=== PATIENT | female | born 1950 | race Caucasian/White ===

== ENCOUNTER 2018-12-29 13:07 | Emergency (ER) | payer OTHER, SELFPAY ==
[2018-12-29 13:09] VITALS: BP 148/78; PULSE 71; RESP 14; TEMP 36; O2SAT 98; BMI 34.2
--- NOTE | 2018-12-29 13:29 | US_ITS ---
STUDY: ABDOMINAL ULTRASOUND - RIGHT UPPER QUADRANT REASON FOR VISIT: Female, 68 years old. Right upper quadrant pain. TECHNIQUE: Ultrasound evaluation of the right upper quadrant was performed with real-time and static sinclair-scale imaging. TECHNICAL QUALITY: Adequate. COMPARISON: None. FINDINGS: Liver: The liver measures 14.5 cm. There is increased echogenicity consistent with fatty infiltration. The bile ducts are within normal limits. There is hepatic color flow. The direction of portal flow is hepatopetal. There is no demonstrated mass lesion. Gallbladder: Normal distended gallbladder. The gallbladder wall measures 3.0 mm. There is a negative sonographic Cartagena's sign. There is no pericholecystic fluid. There are multiple echogenic structures within the gallbladder, consistent with multiple gallstones. There is also evidence of a 4.8 mm gallbladder polyp. There is also evidence of adenomyomatosis of the gallbladder wall. Common Bile Duct (C.B.D.): The common bile duct measures 7 mm. Pancreas: Normal size of the head, body and tail of the pancreas. There is normal echogenicity of the pancreas. There is no demonstrated pancreatic mass or cyst. Right Kidney: Normal size of the right kidney. The right kidney measures 11.1 cm x 4.8 cm x 4.8 cm. Normal renal cortex. The right cortex measures 1.5 cm. There is no demonstrated renal mass or cyst. There is no right hydronephrosis. US/Gallbladder IMPRESSION: Fatty infiltration of the liver. Gallstones and small gallbladder polyp. Electronically Signed: Ihsan Fuentes, at 15:15 EDT , Service support ,
--- NOTE | 2018-12-29 13:30 | ED.VISSUMM ---
- ER Visit Summary Date of Service: 12/29/18 Chief Complaint: Intermittent right upper quadrant abdominal pain History of Present Illness: The patient is a 68 F treated recently diagnosed gallstones. Has had intermittent pain this week since Tuesday. Was seen and treated at [place] [facility] earlier this week. Had a CAT scan showing gallstones but no acute obstruction. She had unremarkable labs at that time. She is following up with Dr. Rahman that he had a concern of a possible biliary obstruction from a stone and he was an ultrasound performed. Currently she is pain-free. Physical Examination: Well-appearing older female. No acute distress. Vital signs are stable and afebrile. HEENT exam unremarkable. Neck nontender no lymphadenopathy. Lungs clear to auscultation bilaterally. Heart regular rhythm no murmur. Abdomen is soft and nontender. Normal bowel sounds no peritoneal signs. Extremities moves all 4. Calves are nontender no edema. Neurologically she is awake and alert with no focal motor deficits. Test Results: Ultrasound right upper quadrant shows multiple gallstones and a gallbladder polyp. Negative Cartagena sign. No pericholecystic fluid or wall edema. Common bile duct 7 mm. Emergency Department Course and Treatment: Repeat exams patient is doing well. She is had no abdominal pain while in the ER. Her abdomen is completely nontender. I discussed with her that I talked to her general surgeon Dr. Ervin Salomon and she will follow-up with him this coming week. She and her daughter are comfortable with that plan. They know to return if she is feeling a lot worse as intractable pain. Treatment Plan: Diet. Call and follow-up with Dr. Ervin Salomon this week. Disposition: dc Impression: Intermittent right upper quadrant abdominal pain secondary to biliary colic from gallstones This note was generated with [employer] software. It may contain incorrect words, spelling, and punctuation that were not noted in review of the chart prior to signing
--- NOTE | 2018-12-29 15:23 | ED.DEP ---
ED Disposition - Plan for ED Patient: Disposition: Home or Assisted Living Instructions: BILIARY COLIC with Gallstone (Confirmed) Referrals: Ervin Salomon MD [STAFF PHYSICIAN] - As soon as possible Additional Instructions: [place] diet. No trauma clinic, CABG or greasy foods. Call and follow-up with Dr. Ervin Salomon to his office this week. Tylenol and/or Motrin for pain. Return to the ER if intractable pain, intractable vomiting or fever.
== END 2018-12-29 15:32 | disposition home or self-care (01) ==
PROVIDERS: Emergency Provider Emergency Medicine
DX: K80.80 Other cholelithiasis without obstruction (principal); K76.0 Fatty (change of) liver, not elsewhere classified
CPT/HCPCS: 76705; 99282

== ENCOUNTER 2019-01-02 12:48 | Inpatient (IN) | payer SELFPAY ==
[2019-01-01 08:29] VITALS: BMI 34.2
--- NOTE | 2019-01-01 09:59 | PCM.HP.BLA ---
Problem List (1) Cholelithiasis Status: Acute Qualifiers: Cholelithiasis location: gallbladder Cholecystitis presence: without cholecystitis Biliary obstruction: without biliary obstruction Qualified Code(s): K80.20 - Calculus of gallbladder without cholecystitis without obstruction History and Physical Date of Admission: 01/01/19 Intake Vital Signs 01/01/19 Body Mass Index (BMI) 34.2 01/01/19 Height 5 ft 1 in 01/01/19 Weight: 175 lb 01/01/19 Body Mass Index (BMI) 33.0 01/01/19 Blood Pressure 132/83 H 01/01/19 Blood Pressure Location Lt brachial 01/01/19 Respiratory Rate 18 Intake Visit Reasons: Hospital f/u Gallstone 12/29 Game Warden Required: No Is patient in pain?: No Allergies No Known Allergies Allergy (Verified 01/01/19 08:29) Medications multivitamin tablet 1 tab PO DAILY 01/01/19 [History Confirmed 01/01/19] PFSH Medical History Gallstones (Acute) Normal colonoscopy (Acute) Surgical History S/P tonsillectomy (Acute) Family History Sister Cancer uterine Social History (Updated 01/01/19 @ 09:58 by Ervin Saolmon MD) Smoking Status: Never smoker alcohol intake: never HPI HPI HPI: ELISA ALBARADO, is a 68 F who presents to the office today for HPI HPI HPI: ELIAS ALBARADO, is a 68 F who presents to the office today for right upper quadrant pain. Patient has had 2 episodes of severe right upper quadrant pain. She had ultrasound done recently which showed multiple gallstones. She had no wall thickening and her white count was normal. She says that eating does make the pain worse. She is currently not in any pain right now and these episodes have induced some nausea but no vomiting. ROS General General: No weight change or fatigue Cardio Cardiovascular: No murmur, pacemaker, heart disease, atrial fibrillation, high blood pressure, heart attack, heart stent, palpitations, shortness of breat with exertion or chest pain Psych Psychiatric: No depression or anxiety Resp Respiratory: No shortness of breath, No sleep apnea, No cough, No COPD, No asthma, No emphysema, No wheezing Gastro Gastrointestinal: Yes abdominal pain, Yes nausea or vomiting, No diarrhea, No constipation, No blood in stool, No acid reflux, No hemorrhoids, No ulcers, No gallbladder problem, No black,tarry stools Rad Hematologic: No blood thinners Exam Const General: cooperative Orientation: alert, oriented x3 Resp Effort & Inspection: normal respiratory effort Auscultation: clear to auscultation bilaterally Cardio Rate: regular rate Rhythm: regular rhythm Heart Sounds: no murmurs GI Inspection: non-distended Palpation: soft, nontender Assessment & Plan Problems 1. Calculus of gallbladder without cholecystitis without obstruction K80.20 Plan Patient has cholelithiasis and biliary colic. He has had 2 episodes of severe pain. She would like her gallbladder out before another episode recurs. I discussed laparoscopic cholecystectomy with her. I discussed the procedure in detail with the patient. I discussed the risks, benefits, and alternatives of the procedure. I discussed the risks including but not limited to bleeding, infection, injury to surrounding organs such as the liver, bile duct, bowels. I did discuss the possibility of having to convert to an open procedure as well as the possibility that if any injuries occurred this may necessitate further surgery at a tertiary care center. Ervin Salomon MD Pager: [facility] [address] [place] [address], [address] [place] [phone] Office:
[2019-01-02] VITALS (11 sets, daily range): BP systolic 114–140; BP diastolic 68–83; PULSE 57–84; RESP 14–20; TEMP 36.1–37; O2SAT 92–98; BMI 32.5; BMI 32.8
--- NOTE | 2019-01-02 09:57 | EKG12_ITS ---
Test Reason : PREOP Blood Pressure : / mmHG Vent. Rate : 067 BPM Atrial Rate : 067 BPM P-R Int : 142 ms QRS Dur : 066 ms QT Int : 386 ms P-R-T Axes : 026 071 031 degrees QTc Int : 407 ms Normal sinus rhythm Normal ECG No previous ECGs available Confirmed by WESTON CHAVEZ ([id number]), newspaper editor ABDIRIZAK DENNY ([id number]) on 01/11/2019 2:42:57 PM Referred By: Ervin Salomon Confirmed By:WESTON CHAVEZ
[2019-01-02 10:19] LABS: Hematocrit 44.6 % (37-47); Hemoglobin 14.9 g/dL (12.0-15.0); Mean Corp Hgb Conc 33.4 g/dL (32-36); Mean Corpuscular Hgb 30.9 pg (27.0-32.0); Mean Corpuscular Volume 92.5 fL (81-99); Mean Platelet Vol. 8.8 fl (6.2-12.0); Platelet Count 186 K/mm3 (150-450); RBC Distribution Width CV 12.7 % (11.6-14.6); RBC Distribution Width SD 43.2 fl (35.1-43.9); Red Blood Count 4.82 M/mm3 (4.2-5.4); White Blood Count 4.6 K/mm3 (4.4-11.0)
[2019-01-02 10:28] LABS: Partial Thromboplast Time 27.1 Seconds (24.1-36.2); Prothrombin Time (Protime)PT. 12.6 SECONDS (11.7-14.9)
[2019-01-02 10:34] LABS: AST(SGOT) 25 U/L (15-37); Alanine Aminotransfer ALT/SGPT 34 U/L (13-56); Albumin, Serum 3.9 g/dL (3.2-5.0); Alkaline Phosphatase 57 U/L (45-117); Bilirubin, Direct 0.13 mg/dL (0.00-0.30); Globulin 3.2 g/dL (2.2-4.2); Protein, Total 7.1 g/dL (6.4-8.2)
--- NOTE | 2019-01-02 11:30 | GALL_PTH ---
PATIENT: ELIAS ALBARADO LOC: PCU U#:[id number] AGE/SX: 68/F ROOM: [facility] RE01/03/[address]: Dr. Ervin Salomon MD : 1950 BED: 1 DIS: 01/10/2019 SPEC #: [id number] RECD: 01/02/19 15:04 STATUS: ANJELICA BROWN #: [id number] FARZANEH: 01/02/19 11:[address]: Ervin Salomon DEPT: SURGICAL PATHOLOGY RECD BY: Hector Corona ENTERED: 01/03/19 10:47 SP TYPE: JACKIE PIERSON DR: Dr. Gabriel Proctor MD Tissues: Gallbladder, NOS Procedures: Surgery Specimen Level IV HEADER OPERATION: Laparoscopic, cholecystectomy with IOC PRE-OP DIAGNOSIS: Cholelithiasis TISSUE SUBMITTED: Gallbladder MICROSCOPIC DIAGNOSIS Gallbladder, cholecystectomy: Chronic cholecystitis and cholelithiasis. Focal mild epithelial dysplastic changes. SJ:nan 01/05/19 COMMENT Case has been reviewed in consultation with Dr. Cervantes who concurs with the above diagnosis. IDC:AM MICROSCOPIC DESCRIPTION Slides are reviewed. GROSS DESCRIPTION Received is one container labeled with the patient's name and designated gallbladder. The specimen consists of a gallbladder measuring 6.5 cm in length and 3 cm in diameter. The external surface is pink-benitez, smooth and glistening for the most part. Focally it is granular, hemorrhagic and contains cautery artifact. The gallbladder contains grayish-light yellow mucoid bile and multiple, multifaceted yellow-orange stones measuring in aggregate 5 x 3 x 1 cm and 0.5 to 0.8 in greatest dimension. The mucosa is bile-stained and without any mass lesions. The gallbladder wall measures up to 0.5 cm in thickness. A focal area shows increased amount of subserosal fat. Brusher Warp sections from the gallbladder and the cystic duct are submitted in one cassette. / YUNIER:nan 01/03/19 More sections are submitted in cassettes 2-4. / YUNIER:nan 01/04/19 TC:3 CPT: 86415
--- NOTE | 2019-01-02 11:30 | RAD_ITS ---
STUDY: INTRAOPERATIVE CHOLANGIOGRAM. REASON FOR EXAM: Female, 68 years old. Laparoscopic cholecystectomy. FLUOROSCOPY TIME (if supplied): (0:41) minutes/seconds TECHNIQUE: An intraoperative glandular was performed by the surgeon. Imaging was obtained. COMPARISON: None. FINDINGS: The visualized intrahepatic biliary ducts are unremarkable. Minimal dilatation of the common bile duct. No intraluminal filling defect is seen. Contrast is seen entering the duodenum. RAD/Cholangiogram/ O R,Initial IMPRESSION: Mildly dilated common bile duct. No intraluminal filling defect is seen. Electronically Signed: Ihsan Fuentes, at 13:46 EDT , Service support ,
[2019-01-02] MEDS: Bupiv/Epi 0.25% 30 ML Vial (12:00)
--- NOTE | 2019-01-02 12:44 | PCM.OPRPT ---
Problem List (1) Cholelithiasis Status: Acute Qualifiers: Cholelithiasis location: gallbladder Cholecystitis presence: without cholecystitis Biliary obstruction: without biliary obstruction Qualified Code(s): K80.20 - Calculus of gallbladder without cholecystitis without obstruction Report of Operation Date of Procedure: 01/02/19 Pre-Operative Diagnosis: Cholelithiasis and biliary colic Post-Operative Diagnosis: 1. Cholelithiasis. 2. Choledocholithiasis Surgery/Procedure Performed:: Laparoscopic cholecystectomy with cholangiogram Description of Surgical Findings:: Patient had 2 stones in the distal common bile duct on intraoperative cholangiogram. She also a dilated common bile duct. Specimen's removed: Gallbladder and contents Description of Procedure: After obtaining informed consent patient was brought back to the operating room. General anesthesia was induced. The abdomen was prepped and draped in usual sterile fashion. The patient had an umbilical hernia. A curvilinear incision was made in the superior umbilical skin and deepened to the umbilical hernia. The fascia was elevated and incised. Next the peritoneum was elevated and incised in the same fashion. Finger sweep was performed and the Glynn trocar was placed into the abdomen. The balloon was inflated. The abdomen was inflated to 15 mmHg. Next a camera was introduced into the abdomen and the abdomen was inspected. Next under direct visualization three 5-mm ports were placed one subxiphoid and 2 subcostal. Next the gallbladder was elevated and retracted toward the right shoulder. The peritoneum was stripped from the gallbladder. The infundibulum was located and retracted laterally. Next the triangle of Calot was dissected and the cystic duct and cystic artery were identified. Cholangiograms were performed. A small riya was made in the right upper quadrant and a Ranfac catheter was placed into the abdomen. A clip was placed in the proximal cystic duct and a small riya was made in the cystic duct. The Ranfac catheter was placed into the cystic duct and a clip was placed over it. Contrast was instilled and there appeared to be 2 distal common bile duct stones. The common bile duct was also dilated. The clip was removed from the distal cystic duct and the Ranfac catheter was removed. Three hemolock clips were placed across the cystic duct. The cystic duct was then divided leaving 2 clips on the stump. The cystic artery was clipped and divided in the same fashion. The hook cautery was then used to take the gallbladder off of the gallbladder bed. Hemostasis was obtained. Gallbladder fossa was irrigated and no active bleeding or bile leakage was noted. Next the camera switched to a 5 mm camera and introduced in the subxiphoid port. An Endopouch bag was placed through the umbilical port and the gallbladder was placed into it. The gallbladder was then removed through the umbilical incision. The camera was then reinserted through the umbilical port. The gallbladder fossa was inspected once more and noted to be hemostatic with no leaking bile. The abdomen was suctioned dry. The 5 mm ports were removed under direct visualization. The umbilical port was then removed and the air was removed from the abdomen. The umbilical hernia was then repaired with 2 [id number] 0 Vicryl sutures. The umbilical port site was irrigated local anesthetic was administered to all the incisions. All the incisions were closed with interrupted subcuticular 4-0 Monocryl sutures followed by Steri-Strips and dressings. The patient was awoken and taken to PACU in stable condition. - Admit VTE Documentation VTE Mechan Device Prophylaxis: SCD's
[2019-01-02] MEDS: 0.9% Normal Saline 1,000 ML 75 ML IV ×2 (13:59→22:09)
[2019-01-02] MEDS: oxyCODONE 5 MG Tablet PO (15:35)
[2019-01-02] MEDS: Acetaminophen 325 MG Tablet 650 MG PO (18:31)
[2019-01-03] VITALS (12 sets, daily range): BP systolic 109–162; BP diastolic 57–86; PULSE 60–98; RESP 16–24; TEMP 36–37.3; O2SAT 81–99; BMI 33.7
[2019-01-03 06:21] LABS: Absolute Lymphocyte Count 1.23 X10^3/uL (0.83-4.51); Absolute Neutrophil Count 3.6 X10^3/uL (2.0-7.7); Basophil# 0.01 X10^3/uL; Basophil% 0.2 % (0-1); Eosinophil# 0.05 X10^3/uL; Eosinophils% 0.9 % (0-5); Lymphocyte # 1.23 X10^3/ul (4.0); Lymphocyte % 22.6 % (19-41); Mean Corp Hgb Conc 33.3 g/dL (32-36); Mean Platelet Vol. 9.1 fl (6.2-12.0); Monocyte# 0.53 X10^3/uL; Monocyte% 9.7 % (0-10); NRBC Flagged by Analyzer 0 % (0-5); Neutrophil # 3.62 X10^3/uL (2.7-7.7); Neutrophil % 66.4 % (47-70); Platelet Count 159 K/mm3 (150-450); Red Blood Count 3.87 M/mm3 (4.2-5.4); White Blood Count 5.5 K/mm3 (4.4-11.0)
[2019-01-03 06:42] LABS: ALB/GLOB Ratio 1.1 RATIO (0.9-2.4); AST(SGOT) 54 U/L (15-37); Alanine Aminotransfer ALT/SGPT 55 U/L (13-56); Albumin, Serum 2.8 g/dL (3.2-5.0); Alkaline Phosphatase 45 U/L (45-117); Anion Gap 4 (5-15); BUN 7 mg/dL (7-18); BUN/Creat Ratio 8.6 RATIO (10-20); Calcium,Total 7.8 mg/dL (8.5-10.1); Chloride 110 mmol/L (98-107); Creatinine, Serum 0.81 mg/dL (0.55-1.02); EST Glomerular Filtration Rate 75 mL/min (>60); Est Glom Filt Rate - Afr Amer 90 mL/min (>60); Estimated Creatinine Clearance 50.86 ml/min; Globulin 2.6 g/dL (2.2-4.2); Glucose 84 mg/dL (74-106); Potassium 3.8 mmol/L (3.5-5.1); Protein, Total 5.4 g/dL (6.4-8.2); Sodium Level 142 mmol/L (136-145)
--- NOTE | 2019-01-03 08:23 | NURSING ---
Report called to XUAN Busby in [place]. Patient's daughter was also called and made aware that her mother was being taken down for her procedure at this time.
--- NOTE | 2019-01-03 09:09 | PN.SURG_ITS ---
Subjective: Patient is doing well this morning. She reports that her pain is improving. She did have some nausea but that has resolved. - Physical Exam General: Alert, Oriented x3 Neck: No JVD Lungs: Normal air movement Cardiovascular: Regular rate, Regular Rhythm Abdomen: Soft, Non Tender, Non-Distended Vital Signs Temp Pulse Resp BP Pulse Ox 98.2 F 66 17 116/58 L 93 01/03/19 08:11 01/03/19 08:11 01/03/19 08:11 01/03/19 08:11 01/03/19 08:11 Oxygen Flow Rate (L/min) 2 Oxygen Delivery Method Room Air Weight: 178 lb 5.663 oz Body Mass Index (BMI) 33.7 Intake and Output for Last 24 Hours 01/01/19 01/02/19 01/03/19 23:59 23:59 23:59 Intake Total 1807 / 2463 1091 / 1091 Balance 1807 / 2463 1091 / 1091 Laboratory Tests Past 24 Hrs 01/02/19 01/02/19 01/02/19 10:12 10:12 10:12 WBC 4.6 RBC 4.82 Hgb 14.9 Hct 44.6 MCV 92.5 MCH 30.9 MCHC 33.4 RDW Std Deviation 43.2 RDW Coeff of Yessi 12.7 Plt Count 186 MPV 8.8 Immature Gran % (Auto) Neut % (Auto) Lymph % (Auto) [place] % (Auto) Eos % (Auto) Baso % (Auto) Absolute Neuts (auto) Absolute Lymphs (auto) Nucleated RBC % PT 12.6 INR 1.0 APTT 27.1 Sodium Potassium Chloride Carbon Dioxide Anion Gap BUN Creatinine Estim Creat Clear Calc Est GFR (MDRD) Af Amer Est GFR (MDRD) Non-Af BUN/Creatinine Ratio Glucose Calcium Total Bilirubin 0.60 Direct Bilirubin 0.13 AST 25 ALT 34 Alkaline Phosphatase 57 Total Protein 7.1 Albumin 3.9 Globulin 3.2 Albumin/Globulin Ratio 01/03/19 01/03/19 05:40 05:40 WBC 5.5 RBC 3.87 L Hgb 12.0 Hct 36.0 L MCV 93.0 MCH 31.0 MCHC 33.3 RDW Std Deviation 44.0 H RDW Coeff of Yessi 13.0 Plt Count 159 MPV 9.1 Immature Gran % (Auto) 0.200 Neut % (Auto) 66.4 Lymph % (Auto) 22.6 Poins[place] % (Auto) 9.7 Eos % (Auto) 0.9 Baso % (Auto) 0.2 Absolute Neuts (auto) 3.6 Absolute Lymphs (auto) 1.23 Nucleated RBC % 0 PT INR APTT Sodium 142 Potassium 3.8 Chloride 110 H Carbon Dioxide 28.0 Anion Gap 4 L BUN 7 Creatinine 0.81 Estim Creat Clear Calc 50.86 Est GFR (MDRD) Af Amer 90 Est GFR (MDRD) Non-Af 75 BUN/Creatinine Ratio 8.6 L Glucose 84 Calcium 7.8 L Total Bilirubin 0.40 Direct Bilirubin AST 54 H ALT 55 Alkaline Phosphatase 45 Total Protein 5.4 L Albumin 2.8 L Globulin 2.6 Albumin/Globulin Ratio 1.1 Medical Necessity - Tobacco Use Smoking Status: Never smoker Tobacco Use: Non-smoker Assessment/Plan All Active Problems (Last Reviewed 01/01/19 @ 08:27 by Estefany Mitchell) Cholelithiasis (Acute) 68-year-old female status post lap scopic cholecystectomy with choledocholithiasis 1. Patient had 2 stones in the distal common bile duct as well as dilated common bile duct on cholangiogram yesterday during cholecystectomy. I recommended ERCP today. I discussed the procedure with the patient this morning. I discussed the procedure in detail as well as the risks including but not limited to bleeding, infection, perforation of bile duct or bowel, pancreatitis. Patient understands and is willing to proceed. I also described the possibility of needing a stent. Ervin Salomon MD Pager: [facility] [address] [place] [address], [address] [place] [address] Office:
--- NOTE | 2019-01-03 09:45 | RAD_ITS ---
STUDY: ERCP. REASON FOR EXAM: Female, 68 years old. Recent cholecystectomy. FLUOROSCOPY TIME (if supplied): (5:07) minutes/seconds TECHNIQUE: An ERCP was performed by the surgeon. Imaging of the common bile duct was performed. COMPARISON: None. FINDINGS: Mild dilatation of the common bile duct. A filling defect is seen in the distal portion of the common bile duct. A retained calculus should be ruled out. RAD/ERCP Biliary Only IMPRESSION: A filling defect is seen in the distal portion of the common bile duct. Retained calculus should be ruled out. Electronically Signed: Ihsan Fuentes, at 12:26 EDT , Service support ,
--- NOTE | 2019-01-03 11:06 | OP.ENDO_ITS ---
01/03/2019 Gabriel Proctor Re : ERCP procedure for Ruthie Ayon Dear Esthela This procedure was performed on Thursday, January 03, 2019. My impressions and recommendations are as follows: Impressions : - A filling defect consistent with a stone was seen on the cholangiogram. - Choledocholithiasis was found. - The biliary tree was swept. Recommendations : - Advance diet as tolerated. My findings are described in the full procedure note, which is enclosed. If I can be of further assistance, please feel free to contact me at Doctor phone number(s): , Work: . Sincerely, Ervin Salomon MD 01/03/2019 11:06:39 AM This report has been signed electronically.
[2019-01-03] MEDS: 0.9% Normal Saline 1,000 ML 75 ML IV (14:49)
[2019-01-03] MEDS: oxyCODONE 5 MG Tablet PO (14:49)
[2019-01-03] MEDS: Morphine 2 MG/ML Syringe IV ×2 (17:15→20:08)
[2019-01-03] MEDS: 0.9% NaCl Peripheral Flush Adult/Peds IV (17:15)
[2019-01-04] VITALS (10 sets, daily range): BP systolic 137–176; BP diastolic 72–104; PULSE 89–99; RESP 16–20; TEMP 36.8–37.4; O2SAT 78–95
[2019-01-04] MEDS: Morphine 2 MG/ML Syringe IV ×6 (02:03→23:57)
[2019-01-04] MEDS: 0.9% Normal Saline 1,000 ML 75 ML IV (02:04)
--- NOTE | 2019-01-04 07:09 | RAD_ITS ---
STUDY: X-RAY CHEST REASON FOR EXAM: Female, 68 years old. Hypoxia. TECHNIQUE: PA and lateral views of the chest. COMPARISON: None. FINDINGS: Increased markings are seen at the lung bases worse on the left side in keeping with bibasilar atelectasis and/or infiltrates. There is blunting of the costophrenic angles posteriorly. Normal size heart. Normal mediastinum and bon. Normal visualized pulmonary arteries. There is atherosclerotic tortuosity of the aortic arch and descending thoracic aorta. There are diffuse degenerative changes of the visualized thoracic spine. Normal visualized ribs, clavicles, and shoulders. Gaseous distention of the colon. RAD/Chest PA and Lateral IMPRESSION: Findings suggestive of bibasilar atelectasis/infiltrates. Follow-up is recommended. Electronically Signed: Ihsan Fuentes, at 11:15 EDT , Service support ,
--- NOTE | 2019-01-04 07:10 | RAD_ITS ---
STUDY: X-RAY - ABDOMEN/PELVIS REASON FOR EXAM: Female, 68 years old. Abdominal distention. Recent ERCP. TECHNIQUE: AP supine and upright views of the abdomen and pelvis. COMPARISON: None. FINDINGS: Increased markings at both lung bases left greater than right suggestive of bibasilar infiltrates and/or atelectasis with small bilateral effusions. Gaseous distention of the colon down to the rectum. Small amount of oral contrast is seen within the distended cecum. The cecum measures 12.3 cm in transverse dimension. There is no demonstrated free abdominal air. The visualized liver, spleen and kidneys are grossly normal in size and morphology. Normal soft tissue structures. There are diffuse degenerative changes of the visualized lumbar spine. RAD/Abd Inc Decub and/or Erect IMPRESSION: Gaseous distention of the colon down to the rectum. The cecum measures 12.3 cm in transverse dimension. Electronically Signed: Ihsan Fuentes, at 14:33 EDT , Service support ,
[2019-01-04 07:28] LABS: Absolute Neutrophil Count 10.6 X10^3/uL (2.0-7.7); Basophil# 0.01 X10^3/uL; Basophil% 0.1 % (0-1); Eosinophil# 0.16 X10^3/uL; Eosinophils% 1.4 % (0-5); Hematocrit 44.4 % (37-47); Hemoglobin 15.3 g/dL (12.0-15.0); Lymphocyte % 4.2 % (19-41); Mean Corp Hgb Conc 34.5 g/dL (32-36); Mean Corpuscular Hgb 31.4 pg (27.0-32.0); Monocyte# 0.53 X10^3/uL; Monocyte% 4.5 % (0-10); NRBC Flagged by Analyzer 0 % (0-5); Neutrophil # 10.56 X10^3/uL (2.7-7.7); Neutrophil % 89.5 % (47-70); POSITIVE DIFFERENTIAL YES; POSITIVE MORPHOLOGY YES; Platelet Count 133 K/mm3 (150-450); RBC Distribution Width CV 12.8 % (11.6-14.6); RBC Distribution Width SD 42.5 fl (35.1-43.9); Red Blood Count 4.88 M/mm3 (4.2-5.4); White Blood Count 11.8 K/mm3 (4.4-11.0)
[2019-01-04 07:29] LABS: Differential Indicated SCAN CRITERIA MET
[2019-01-04 07:44] LABS: Lipase 3445 U/L (73-393)
[2019-01-04 07:52] LABS: AST(SGOT) 389 U/L (15-37); Alanine Aminotransfer ALT/SGPT 288 U/L (13-56); Albumin, Serum 3.2 g/dL (3.2-5.0); Alkaline Phosphatase 135 U/L (45-117); Anion Gap 8 (5-15); BUN 6 mg/dL (7-18); BUN/Creat Ratio 7.4 RATIO (10-20); Calcium,Total 7.2 mg/dL (8.5-10.1); Chloride 101 mmol/L (98-107); Creatinine, Serum 0.82 mg/dL (0.55-1.02); EST Glomerular Filtration Rate 74 mL/min (>60); Est Glom Filt Rate - Afr Amer 90 mL/min (>60); Estimated Creatinine Clearance 50.24 ml/min; Globulin 3.2 g/dL (2.2-4.2); Glucose 143 mg/dL (74-106); Potassium 3.4 mmol/L (3.5-5.1); Protein, Total 6.4 g/dL (6.4-8.2); Sodium Level 133 mmol/L (136-145)
[2019-01-04 07:58] LABS: Reactive Lymphocyte RARE
--- NOTE | 2019-01-04 08:12 | ECHOCS_ITS ---
Reason For Study: DYSPNEA/SOB Procedure This was a 2D Doppler, Color Flow transthoracic echocardiogram. The study was technically difficult. PT unable to be repositioned due to recent abdominal surgery. PT experiencing abdominal pain. Contrast injection was performed. Exam performed portable in patient room. Left Ventricle Based upon the 2D echocardiographic and contrast enhanced views there appears to be grossly normal left ventricular size, wall motion, and systolic function. The estimated ejection fraction is 65 %. No evidence for diastolic dysfunction. Right Ventricle Based upon the 2D echocardiographic and contrast enhanced views there appears to be grossly normal right ventricular size and systolic function. Atria Normal left atrium. Normal right atrium. No doppler evidence for ASD. Mitral Valve There is no mitral annular calcification. Normal mitral valve. Trivial mitral valve insufficiency. Tricuspid Valve The tricuspid valve is not well visualized. Aortic Valve The aortic valve is not well visualized. Pulmonic Valve The pulmonic valve is not well visualized. Great Vessels The aortic root is not well visualized. Pericardium/Pleural No pericardial effusion. MMode/2D Measurements & Calculations LVIDd: 4.0 cm IVSd: 1.2 cm LAV(MOD-bp): 55.1 ml LVIDs: 2.5 cm LVPWd: 0.99 cm LAV(MOD-bp) Indexed: 30.6 ml/m2 FS: 38.6 % LAV(MOD-sp2): 56.7 ml LAV(MOD-sp4): 52.2 ml LA dimension(2D): 3.1 cm LA A4 area: 17.9 cm2 Time Measurements MV dec time: 0.14 sec Doppler Measurements & Calculations MV E max estrada: 93.7 cm/sec Lat Peak E' Estrada: 10.8 cm/sec Med Peak E' Estrada: 7.4 cm/sec MV A max estrada: 91.4 cm/sec E/E' lat: 8.7 E/E' med: 12.6 MV E/A: 1.0 Ao V2 max: 184.2 cm/sec LV V1 max: 95.9 cm/sec PA V2 max: 106.0 cm/sec Ao max P.6 mmHg LV V1 max P.7 mmHg Ao V2 mean: 131.9 cm/sec Ao mean P.6 mmHg Ao V2 VTI: 37.5 cm Interpretation Summary The study was technically difficult. Contrast injection was performed. Based upon the 2D echocardiographic and contrast enhanced views there appears to be grossly normal left ventricular size, wall motion, and systolic function. The estimated ejection fraction is 65 %. Trivial mitral valve insufficiency. No evidence for diastolic dysfunction. Ordering Physician: Samir Felton Referring Physician: Ervin Salomon Performed By: Jami Armenta, JOHNSON, RVT
[2019-01-04] MEDS: Morphine 4 MG/ML Syringe IV (08:34)
--- NOTE | 2019-01-04 08:44 | PCM.CONS.PUL ---
Problem List (1) Hypoxemia Status: Acute (2) Cholelithiasis Status: Acute Qualifiers: Cholelithiasis location: gallbladder Cholecystitis presence: without cholecystitis Biliary obstruction: without biliary obstruction Qualified Code(s): K80.20 - Calculus of gallbladder without cholecystitis without obstruction Reason for Consult Date of Consultation: 01/04/19 Reason for Consultation: Hypoxemia History of Present Illness: The patient is a 68 year old F, with no significant past medical history, who presented to [facility] for an elective cholecystectomy on 01/02/2019. Patient reportedly had had multiple episodes of severe right upper quadrant pain and an ultrasound that showed multiple gallstones as an outpatient. Patient did not have any wall thickening and leukocytosis was normal. Patient had had some episodes of nausea, but no vomiting. Patient stated that the pain was worse with eating. On 01/01/2019, patient was brought in for surgical evaluation. Cholecystectomy went well, but patient still had gallstones in the common bile duct. Patient went for an ERCP shortly thereafter and there was some difficulty with hypoxia through the procedure. Since this procedure, patient has required 3 to 4 L nasal cannula oxygen to maintain appropriate saturations. Patient is reporting she has significant abdominal pain at this time. Patient is having frequent belching, but has not passed any flatulence. Patient reports she has not been using her incentive spirometer very often, but states that prior to the surgery she was achieving approximately 1100 to 1250 cc volumes. At the bedside, patient could only achieve 400 to 500 cc volumes. Patient reports that she has not been out of bed very often secondary to recurrent procedures. Patient reports that she was treated a couple years ago for a pneumonia, but otherwise does not really have any pulmonary history. Patient denies any history of tobacco exposure. Patient denies any asthma. Patient is never required supplemental oxygen previously. Patient does report that she snores, but is never been treated for obstructive sleep apnea. Patient denies any exposure to asbestos or TB. Review of systems otherwise negative x10 systems. Past Medical History Medical History: Medical History (Last Reviewed 01/01/19 @ 08:27 by Estefany Mitchell) Gallstones K80.20 Normal colonoscopy Allergies No Known Allergies Allergy (Verified 01/02/19 10:13) Home Medications: Ambulatory Orders Medication Instructions Recorded multivitamin tablet 1 tab PO DAILY 01/01/19 Surgical History: Surgical History (Last Reviewed 01/01/19 @ 08:27 by Estefany Mitchell) S/P tonsillectomy Z90.89 Smoking Status: Never smoker Tobacco Use: Non-smoker Review of Systems Comment: See HPI Patient Problems: Active and Suspected Problems (Last Reviewed 01/01/19 @ 08:27 by Estefany Mitchell) Hypoxemia (Acute) Objective: Patient does not have any pulmonary function test or echocardiogram available for review. Patient states that she has been treated in [place] previously for pneumonia in the past, but does not know any radiographic discrepancies. - Physical Exam General: Alert, Oriented x3, Cooperative, - - Mild discomfort, especially with deep inhalation. HEENT: Atraumatic, PERRLA, EOMI, Normocephalic, - - No scleral icterus or injection noted. Oral: No Gingival or Mucosal Lesions/ Ulcerations, Dry Mucosa Neck: Supple, No JVD, No Nodes, Trachea Midline Lungs: No rhonchi, No wheeze, No rales, Diminished, - - Visible splinting with deep inhalation. Cardiovascular: Regular rate, Regular Rhythm, Normal S1, Normal S2, No murmurs, No rub noted, No Gallop Abdomen: Soft, Bowel Sounds Not Present, Distended, Tender - Guarding without rebound tenderness Extremities: No clubbing, No cyanosis, No edema, Capillary Refill Less than 3 Seconds Skin: No rashes, No breakdown, Incision - Clean, dry and intact Musculoskeletal: No Tenderness to Palpation of Joints or Extremities Lymphatic: No Cervical, Supraclavicular, or Inguinal Adenopathy Neurological: Cranial nerves II-XII grossly intact, Neuro grossly intact, Motor Exam 5/5 strength throughout Psych/Mental Status: Appropriate, Anxious Vital Signs Temp Pulse Resp BP Pulse Ox 36.8 C 89 16 168/97 H 93 01/04/19 08:40 01/04/19 08:40 01/04/19 08:40 01/04/19 08:40 01/04/19 08:40 Oxygen Flow Rate (L/min) 3 Oxygen Delivery Method Nasal Cannula Weight: 80.9 kg Body Mass Index (BMI) 33.7 Intake and Output for Last 24 Hours 01/02/19 01/03/19 01/04/19 23:59 23:59 23:59 Intake Total 1807 / 2463 3837 / 3837 519 / 519 Balance 1807 / 2463 3837 / 3837 519 / 519 Laboratory Tests Past 24 Hrs 01/04/19 01/04/19 01/04/19 07:15 07:15 07:15 WBC 11.8 H RBC 4.88 Hgb 15.3 H Hct 44.4 MCV 91.0 MCH 31.4 MCHC 34.5 RDW Std Deviation 42.5 RDW Coeff of Yessi 12.8 Plt Count 133 L MPV 9.0 Immature Gran % (Auto) 0.300 Neut % (Auto) 89.5 H Lymph % (Auto) 4.2 L [place] % (Auto) 4.5 Eos % (Auto) 1.4 Baso % (Auto) 0.1 Absolute Neuts (auto) 10.6 H Absolute Lymphs (auto) 0.50 L Nucleated RBC % 0 Reactive Lymphocytes RARE Sodium 133 L Potassium 3.4 L Chloride 101 Carbon Dioxide 24.0 Anion Gap 8 BUN 6 L Creatinine 0.82 Estim Creat Clear Calc 50.24 Est GFR (MDRD) Af Amer 90 Est GFR (MDRD) Non-Af 74 BUN/Creatinine Ratio 7.4 L Glucose 143 H Calcium 7.2 L Total Bilirubin 1.30 H AST 389 H ALT 288 H Alkaline Phosphatase 135 H B-Natriuretic Peptide Total Protein 6.4 Albumin 3.2 Globulin 3.2 Albumin/Globulin Ratio 1.0 Lipase 3445 H 01/04/19 07:15 WBC RBC Hgb Hct MCV MCH MCHC RDW Std Deviation RDW Coeff of Yessi Plt Count MPV Immature Gran % (Auto) Neut % (Auto) Lymph % (Auto) [place] % (Auto) Eos % (Auto) Baso % (Auto) Absolute Neuts (auto) Absolute Lymphs (auto) Nucleated RBC % Reactive Lymphocytes Sodium Potassium Chloride Carbon Dioxide Anion Gap BUN Creatinine Estim Creat Clear Calc Est GFR (MDRD) Af Amer Est GFR (MDRD) Non-Af BUN/Creatinine Ratio Glucose Calcium Total Bilirubin AST ALT Alkaline Phosphatase B-Natriuretic Peptide Pending Total Protein Albumin Globulin Albumin/Globulin Ratio Lipase Clinical Impression(s) from Imaging Studies ERCP X-Ray 01/03/19 09:45 IMPRESSION: A filling defect is seen in the distal portion of the common bile duct. Retained calculus should be ruled out. Electronically Signed: Ihsan Fuentes, at 12:26 EDT , Service support , Assessment/Plan All Active Problems (Last Reviewed 01/01/19 @ 08:27 by Estefany Mitchell) Cholelithiasis (Acute) Hypoxemia (Acute) RECOMMENDATIONS: 1. Encourage improved incentive spirometer use and out of bed as tolerated 2. Obtain BNP and echocardiogram 3. Wean oxygen as tolerated 4. Aggressive pain control IMPRESSIONS: 1. Hypoxia Unclear etiology at this time. Clinical suspicion for atelectasis given patient's decrease in the incentive spirometer use, prolonged ERCP and lack of bowel sounds. Other age-appropriate etiologies would include congestive heart failure or pulmonary embolism. Patient does not have significant tachycardia to suggest a high Wells criteria at this time. Will obtain an echocardiogram and a BNP for evaluation of congestive heart failure. Patient has had multiple surgical procedures and may have an element of diastolic dysfunction. Fluid status is inaccurate at this time. Patient likely does not require any bronchodilators or steroids from my perspective. 2. Acute cholecystitis postop day #2 Patient did have a cholecystectomy with ERCP and stone removal. Patient is having some postoperative pain. Will defer to surgery. Code Visit Inpatient E&M: 42958 Init Hosp L2
[2019-01-04] MEDS: Potassium Chloride 10mEq/100mL 10 MEQ/100 ML IV.SOLN. 100 MEQ IV BOLUS ×3 (09:44→13:30)
[2019-01-04] MEDS: 0.9% Normal Saline 1,000 ML 125 ML IV ×2 (13:30→22:07)
--- NOTE | 2019-01-04 16:18 | PN.SURG_ITS ---
Patient Problems: Active and Suspected Problems (Last Reviewed 01/01/19 @ 08:27 by Estefany Mitchell) Hypoxemia (Acute) Subjective: Patient developed increased abdominal pain overnight. She is not passing any flatus this morning. She denies any nausea or vomiting but she does say she has generalized abdominal pain. - Physical Exam General: Alert, Oriented x3 Lungs: Diminished Cardiovascular: Regular rate, Regular Rhythm Abdomen: Soft, Distended, Tender Vital Signs Temp Pulse Resp BP Pulse Ox 98.3 F 94 20 H 166/85 H 94 01/04/19 13:41 01/04/19 13:41 01/04/19 13:41 01/04/19 13:41 01/04/19 13:41 Oxygen Flow Rate (L/min) 3 Oxygen Delivery Method Nasal Cannula Weight: 178 lb 5.663 oz Body Mass Index (BMI) 33.7 Intake and Output for Last 24 Hours 01/02/19 01/03/19 01/04/19 23:59 23:59 23:59 Intake Total 1807 / 2463 3837 / 3837 1103 / 1103 Output Total 200 / 200 Balance 1807 / 2463 3837 / 3837 903 / 903 Laboratory Tests Past 24 Hrs 01/04/19 01/04/19 01/04/19 07:15 07:15 07:15 WBC 11.8 H RBC 4.88 Hgb 15.3 H Hct 44.4 MCV 91.0 MCH 31.4 MCHC 34.5 RDW Std Deviation 42.5 RDW Coeff of Yessi 12.8 Plt Count 133 L MPV 9.0 Immature Gran % (Auto) 0.300 Neut % (Auto) 89.5 H Lymph % (Auto) 4.2 L [place] % (Auto) 4.5 Eos % (Auto) 1.4 Baso % (Auto) 0.1 Absolute Neuts (auto) 10.6 H Absolute Lymphs (auto) 0.50 L Nucleated RBC % 0 Reactive Lymphocytes RARE Sodium 133 L Potassium 3.4 L Chloride 101 Carbon Dioxide 24.0 Anion Gap 8 BUN 6 L Creatinine 0.82 Estim Creat Clear Calc 50.24 Est GFR (MDRD) Af Amer 90 Est GFR (MDRD) Non-Af 74 BUN/Creatinine Ratio 7.4 L Glucose 143 H Calcium 7.2 L Total Bilirubin 1.30 H AST 389 H ALT 288 H Alkaline Phosphatase 135 H B-Natriuretic Peptide Total Protein 6.4 Albumin 3.2 Globulin 3.2 Albumin/Globulin Ratio 1.0 Lipase 3445 H 01/04/19 07:15 WBC RBC Hgb Hct MCV MCH MCHC RDW Std Deviation RDW Coeff of Yessi Plt Count MPV Immature Gran % (Auto) Neut % (Auto) Lymph % (Auto) [place] % (Auto) Eos % (Auto) Baso % (Auto) Absolute Neuts (auto) Absolute Lymphs (auto) Nucleated RBC % Reactive Lymphocytes Sodium Potassium Chloride Carbon Dioxide Anion Gap BUN Creatinine Estim Creat Clear Calc Est GFR (MDRD) Af Amer Est GFR (MDRD) Non-Af BUN/Creatinine Ratio Glucose Calcium Total Bilirubin AST ALT Alkaline Phosphatase B-Natriuretic Peptide 134.0 H Total Protein Albumin Globulin Albumin/Globulin Ratio Lipase Medical Necessity - Tobacco Use Smoking Status: Never smoker Tobacco Use: Non-smoker Assessment/Plan All Active Problems (Last Reviewed 01/01/19 @ 08:27 by Estefany Mitchell) Cholelithiasis (Acute) Hypoxemia (Acute) 68-year-old female status post ERCP 1. Patient was distended this morning and had decreased oxygenation. I consulted pulmonology and got chest x-ray and KUB. KUB shows colonic ileus. The patient had labs which showed post ERCP pancreatitis. 2. I will make the patient n.p.o. and recheck lipase and LFTs in the morning. I gave her increase in IV fluids. I will start Lovenox. Ervin Salomon MD Pager: [facility] [address] [place] [address] Outpatient [place], [address] [place] [address] Office:
[2019-01-04] MEDS: Bisacodyl 10 MG Suppository RECTAL (16:53)
[2019-01-05 03:00] VITALS: BP 145/87; PULSE 98; RESP 18; TEMP 37.2; O2SAT 94
[2019-01-05] MEDS: 0.9% NaCl Peripheral Flush Adult/Peds IV (03:02)
[2019-01-05] MEDS: Morphine 2 MG/ML Syringe IV (03:09)
--- NOTE | 2019-01-05 05:55 | RAD_ITS ---
STUDY: X-RAY - ABDOMEN/PELVIS REASON FOR EXAM: Female, 68 years old. Ileus TECHNIQUE: Two AP supine views of the abdomen and pelvis. Portable COMPARISON: 01/16/2019 FINDINGS: Stable elevation right hemidiaphragm and compression of the visualized parenchyma in the left base. Air distention of colon predominantly cecum, ascending and proximal transverse colon with retained fecal material in the cecum, hepatic flexure. There is no demonstrated free abdominal air on supine image. Right colonic distention of 11 cm The visualized liver, spleen and kidneys are grossly normal in size and morphology. Normal soft tissue structures. There are diffuse degenerative changes of the visualized lumbar spine. RAD/Abdomen Single View (Portable) IMPRESSION: Intestinal ileus suspected with retained fecal material, not significantly changed since previous exam. Electronically Signed: Nathaly Callahan MD at 7:47 EDT , Service support ,
[2019-01-05 06:26] LABS: Absolute Lymphocyte Count 0.55 X10^3/uL (0.83-4.51); Absolute Neutrophil Count 9.7 X10^3/uL (2.0-7.7); Basophil# 0.02 X10^3/uL; Basophil% 0.2 % (0-1); Eosinophil# 0.16 X10^3/uL; Eosinophils% 1.4 % (0-5); Hematocrit 38.7 % (37-47); Hemoglobin 13.4 g/dL (12.0-15.0); Lymphocyte # 0.55 X10^3/ul (4.0); Lymphocyte % 4.9 % (19-41); Mean Corp Hgb Conc 34.6 g/dL (32-36); Mean Corpuscular Hgb 31.3 pg (27.0-32.0); Mean Corpuscular Volume 90.4 fL (81-99); Mean Platelet Vol. 9.1 fl (6.2-12.0); Monocyte# 0.66 X10^3/uL; Monocyte% 5.9 % (0-10); NRBC Flagged by Analyzer 0 % (0-5); Neutrophil # 9.71 X10^3/uL (2.7-7.7); Neutrophil % 87.2 % (47-70); POSITIVE DIFFERENTIAL YES; POSITIVE MORPHOLOGY YES; Platelet Count 136 K/mm3 (150-450); RBC Distribution Width CV 13.1 % (11.6-14.6); RBC Distribution Width SD 43.4 fl (35.1-43.9); Red Blood Count 4.28 M/mm3 (4.2-5.4); White Blood Count 11.1 K/mm3 (4.4-11.0)
[2019-01-05 06:32] LABS: Differential Indicated SCAN CRITERIA MET
[2019-01-05] MEDS: 0.9% Normal Saline 1,000 ML 125 ML IV ×2 (06:35→15:47)
[2019-01-05 06:42] LABS: ALB/GLOB Ratio 0.8 RATIO (0.9-2.4); AST(SGOT) 107 U/L (15-37); Alanine Aminotransfer ALT/SGPT 166 U/L (13-56); Albumin, Serum 2.5 g/dL (3.2-5.0); Alkaline Phosphatase 95 U/L (45-117); Anion Gap 8 (5-15); BUN 7 mg/dL (7-18); BUN/Creat Ratio 11.6 RATIO (10-20); Calcium,Total 7.1 mg/dL (8.5-10.1); Chloride 105 mmol/L (98-107); EST Glomerular Filtration Rate 106 mL/min (>60); Est Glom Filt Rate - Afr Amer 128 mL/min (>60); Estimated Creatinine Clearance 41.19 ml/min; Glucose 119 mg/dL (74-106); Lipase 828 U/L (73-393); Potassium 3.3 mmol/L (3.5-5.1); Protein, Total 5.5 g/dL (6.4-8.2); Sodium Level 137 mmol/L (136-145)
[2019-01-05 07:04] VITALS: O2SAT 94
--- NOTE | 2019-01-05 07:51 | PCM.PN.SRG ---
Patient Problems: Active and Suspected Problems (Last Reviewed 01/01/19 @ 08:27 by Estefany Mitchell) Hypoxemia (Acute) Subjective: Patient is not passing any flatus and still having diffuse abdominal pain - Physical Exam General: Alert, Oriented x3 Neck: No JVD Cardiovascular: Regular rate, Regular Rhythm Abdomen: Distended, Tender Vital Signs Temp Pulse Resp BP Pulse Ox 99.0 F 98 18 145/87 H 94 01/05/19 03:00 01/05/19 03:00 01/05/19 03:00 01/05/19 03:00 01/05/19 03:00 Oxygen Flow Rate (L/min) 3 Oxygen Delivery Method Nasal Cannula Weight: 178 lb 5.663 oz Body Mass Index (BMI) 33.7 Intake and Output for Last 24 Hours 01/03/19 01/04/19 01/05/19 23:59 23:59 23:59 Intake Total 3837 / 3837 1821 / 2791 1560 / 1560 Output Total 600 / 850 450 / 450 Balance 3837 / 3837 1221 / 1941 1110 / 1110 Laboratory Tests Past 24 Hrs 01/04/19 01/04/19 01/04/19 07:15 07:15 07:15 WBC RBC Hgb Hct MCV MCH MCHC RDW Std Deviation RDW Coeff of Yessi Plt Count MPV Immature Gran % (Auto) Neut % (Auto) Lymph % (Auto) [place] % (Auto) Eos % (Auto) Baso % (Auto) Absolute Neuts (auto) Absolute Lymphs (auto) Nucleated RBC % Reactive Lymphocytes RARE Sodium 133 L Potassium 3.4 L Chloride 101 Carbon Dioxide 24.0 Anion Gap 8 BUN 6 L Creatinine 0.82 Estim Creat Clear Calc 50.24 Est GFR (MDRD) Af Amer 90 Est GFR (MDRD) Non-Af 74 BUN/Creatinine Ratio 7.4 L Glucose 143 H Calcium 7.2 L Total Bilirubin 1.30 H AST 389 H ALT 288 H Alkaline Phosphatase 135 H B-Natriuretic Peptide 134.0 H Total Protein 6.4 Albumin 3.2 Globulin 3.2 Albumin/Globulin Ratio 1.0 Lipase 01/05/19 01/05/19 05:57 05:57 WBC 11.1 H RBC 4.28 Hgb 13.4 Hct 38.7 MCV 90.4 MCH 31.3 MCHC 34.6 RDW Std Deviation 43.4 RDW Coeff of Yessi 13.1 Plt Count 136 L MPV 9.1 Immature Gran % (Auto) 0.400 Neut % (Auto) 87.2 H Lymph % (Auto) 4.9 L [place] % (Auto) 5.9 Eos % (Auto) 1.4 Baso % (Auto) 0.2 Absolute Neuts (auto) 9.7 H Absolute Lymphs (auto) 0.55 L Nucleated RBC % 0 Reactive Lymphocytes Sodium 137 Potassium 3.3 L Chloride 105 Carbon Dioxide 24.0 Anion Gap 8 BUN 7 Creatinine 0.60 Estim Creat Clear Calc 41.19 Est GFR (MDRD) Af Amer 128 Est GFR (MDRD) Non-Af 106 BUN/Creatinine Ratio 11.6 Glucose 119 H Calcium 7.1 L Total Bilirubin 0.80 AST 107 H ALT 166 H Alkaline Phosphatase 95 B-Natriuretic Peptide Total Protein 5.5 L Albumin 2.5 L Globulin 3.0 Albumin/Globulin Ratio 0.8 L Lipase 828 H Medical Necessity - Tobacco Use Smoking Status: Never smoker Tobacco Use: Non-smoker Assessment/Plan All Active Problems (Last Reviewed 01/01/19 @ 08:27 by Estefany Mitchell) Cholelithiasis (Acute) Hypoxemia (Acute) 68-year-old female postoperative ileus 1. The patient had post ERCP pancreatitis which is resolving. Her lipase and LFTs are decreasing. Her white count remains elevated and she says she is coughing up sputum and she remains on 3 L nasal cannula. I believe she may be having pneumonia which is causing a colonic ileus. Her colon is still distended on x-ray today. I will start antibiotics and order sputum culture. Repeat KUB in the morning as well as labs. Once her oxygenation is better and ileus has resolved she can be fed and discharged. Ervin Salomon MD Pager: [facility] [address] [place] [address], [address] [place] [address] Office:
[2019-01-05 09:00] VITALS: BP 155/95; PULSE 93; RESP 18; TEMP 36.8; O2SAT 96
[2019-01-05] MEDS: Potassium Chloride 10mEq/100mL 10 MEQ/100 ML IV.SOLN. 100 MEQ IV BOLUS ×4 (10:19→13:39)
[2019-01-05] MEDS: Enoxaparin 40 MG/0.4 ML Syringe SC (11:27)
[2019-01-05] MEDS: oxyCODONE 5 MG Tablet PO ×3 (11:32→21:43)
--- NOTE | 2019-01-05 14:26 | PN_ITS ---
Patient Problems: Active and Suspected Problems (Last Reviewed 01/01/19 @ 08:27 by Estefany Mitchell) Hypoxemia (Acute) Subjective: Patient did okay overnight. Patient does feel that the abdominal pain is grossly unchanged compared to previous. Patient states she did have some gas noted following her suppositories, but no other flatulence noted over the last 24 hours. Patient continues to achieve 250 to 300 cc on her incentive spirometer. Patient does state that she is been attempting to walk in the halls. - Physical Exam General: Alert, Oriented x3, Cooperative, No apparent distress, Well developed, Well nourished, - - Obese. Speaking in full sentences. Spirits appear to be somewhat improved compared to yesterday. HEENT: Atraumatic, PERRLA, EOMI, Normocephalic, - - No scleral icterus or injection noted. Oral: Moist Mucosa, No Gingival or Mucosal Lesions/ Ulcerations Neck: Supple, No JVD, No Nodes, Trachea Midline Lungs: No rhonchi, No wheeze, Diminished, Rales - Bilateral bases posterior, - - Symmetric expansion. Cardiovascular: Regular rate, Regular Rhythm, Normal S1, Normal S2, No murmurs, No rub noted, No Gallop Abdomen: Soft, Non-Distended, Hypoactive Bowel Sounds, Tender Extremities: No clubbing, No cyanosis, No edema, Capillary Refill Less than 3 Seconds Skin: No rashes, No breakdown Musculoskeletal: No Tenderness to Palpation of Joints or Extremities Lymphatic: No Cervical, Supraclavicular, or Inguinal Adenopathy Neurological: Cranial nerves II-XII grossly intact, Neuro grossly intact, Motor Exam 5/5 strength throughout Psych/Mental Status: Alert and oriented to time, place, person, mood and affect Vital Signs Temp Pulse Resp BP Pulse Ox 36.8 C 93 18 155/95 H 96 01/05/19 09:00 01/05/19 09:00 01/05/19 09:00 01/05/19 09:00 01/05/19 09:00 Oxygen Flow Rate (L/min) 3 Oxygen Delivery Method Nasal Cannula Weight: 80.9 kg Body Mass Index (BMI) 33.7 Intake and Output for Last 24 Hours 01/03/19 01/04/19 01/05/19 23:59 23:59 23:59 Intake Total 3837 / 3837 1821 / 2791 2820 / 2820 Output Total 600 / 850 450 / 450 Balance 3837 / 3837 1221 / 1941 2370 / 2370 Laboratory Tests Past 24 Hrs 01/05/19 01/05/19 05:57 05:57 WBC 11.1 H RBC 4.28 Hgb 13.4 Hct 38.7 MCV 90.4 MCH 31.3 MCHC 34.6 RDW Std Deviation 43.4 RDW Coeff of Yessi 13.1 Plt Count 136 L MPV 9.1 Immature Gran % (Auto) 0.400 Neut % (Auto) 87.2 H Lymph % (Auto) 4.9 L [place] % (Auto) 5.9 Eos % (Auto) 1.4 Baso % (Auto) 0.2 Absolute Neuts (auto) 9.7 H Absolute Lymphs (auto) 0.55 L Nucleated RBC % 0 Sodium 137 Potassium 3.3 L Chloride 105 Carbon Dioxide 24.0 Anion Gap 8 BUN 7 Creatinine 0.60 Estim Creat Clear Calc 41.19 Est GFR (MDRD) Af Amer 128 Est GFR (MDRD) Non-Af 106 BUN/Creatinine Ratio 11.6 Glucose 119 H Calcium 7.1 L Total Bilirubin 0.80 AST 107 H ALT 166 H Alkaline Phosphatase 95 Total Protein 5.5 L Albumin 2.5 L Globulin 3.0 Albumin/Globulin Ratio 0.8 L Lipase 828 H Clinical Impression(s) from Imaging Studies Abdomen X-Ray 01/04/19 07:10 IMPRESSION: Gaseous distention of the colon down to the rectum. The cecum measures 12.3 cm in transverse dimension. Electronically Signed: Ihsan Fuentes at 14:33 EDT , Service support , KUB X-Ray 01/05/19 05:55 IMPRESSION: Intestinal ileus suspected with retained fecal material, not significantly changed since previous exam. Electronically Signed: Nathaly Callahan MD at 7:47 EDT , Service support , Medical Necessity - Tobacco Use Smoking Status: Never smoker Tobacco Use: Non-smoker Assessment/Plan All Active Problems (Last Reviewed 01/01/19 @ 08:27 by Estefany Mitchell) Cholelithiasis (Acute) Hypoxemia (Acute) RECOMMENDATIONS: 1. Encourage improved incentive spirometer use and out of bed as tolerated 2. Await response to antibiotics 3. Wean oxygen as tolerated 4. Aggressive pain control IMPRESSIONS: 1. Hypoxia Unclear etiology at this time. Clinical suspicion for atelectasis given patient's decrease in the incentive spirometer use, prolonged ERCP and lack of bowel sounds. Other age-appropriate etiologies would include congestive heart failure or pulmonary embolism. Echocardiogram was not suggestive of any significant wall motion abnormalities. BNP was slightly elevated. Liver enzymes appear to be improving. Patient does have an ileus, which complicates respiratory status. Continue to encourage incentive spirometer and out of bed as tolerated. 2. Acute cholecystitis postop day #3/ileus Patient did have a cholecystectomy with ERCP and stone removal. Patient is having some postoperative pain. Will defer to surgery. Code Visit Inpatient E&M: 24046 Subs Hosp L2
--- NOTE | 2019-01-05 14:51 | CASEMGMT ---
RN CM Assessment Presentation: Choleycystectomy, ERCP for stone removal. Post-op Hypoxia Intro role of CM and purpose of RN CM assessment to patient and her in room.. Demographics, PCP and Pharmacy verified. Pt was independent prior to admission. Ambulated halls with walker now. Pt continues to need oxygen, will need Home Oxygen testing prior to dc if not weaned off. PCP: Dr. Gabriel Zaman, Specialists: Preferred Pharmacy: [facility] Retail Pharm[facility] Insurance: [employer] Prescription Benefit: self pay for medications LNOK: Brianna Ayon Living Arrangements: Lives independently with her . Family is able to assist on discharge. Transportation: Per , he will schedule transportation for f/u appointments DME: pt will need walker. declined CM ordering walker and states he will be able to get walker from community. RN CM requested he have walker available on dc. -If Home oxygen is needed: [facility] can supply oxygen and works with the [facility] [employer] and [facility] [employer]. HHC: none Patient DC goals: Home DC PLAN: Home with family support. May need Home Oxygen on dc. Ariel ANDINON RN ACM
[2019-01-05] MEDS: Calcium Carbonate 500 MG Tablet 1000 MG PO (16:19)
[2019-01-05 16:26] VITALS: BP 129/74; PULSE 106; RESP 18; TEMP 37.2; O2SAT 96
[2019-01-05 21:00] VITALS: PULSE 107; RESP 15; O2SAT 91
[2019-01-05 21:23] VITALS: BP 136/73; PULSE 107; RESP 15; TEMP 37.2; O2SAT 91
[2019-01-06] VITALS (10 sets, daily range): BP systolic 148–205; BP diastolic 72–99; PULSE 80–112; RESP 15–17; TEMP 36.4–37.1; O2SAT 91–95
[2019-01-06] MEDS: 0.9% Normal Saline 1,000 ML 125 ML IV ×3 (01:47→18:35)
[2019-01-06] MEDS: oxyCODONE 5 MG Tablet PO ×4 (01:50→17:18)
--- NOTE | 2019-01-06 05:05 | RAD_ITS ---
STUDY: X-RAY - ABDOMEN/PELVIS REASON FOR EXAM: Female, 68 years old. Ileus TECHNIQUE: 2 views COMPARISON: None. FINDINGS: Normal visualized lung bases. Gaseous distended colon without definite sign of obstruction. There is no demonstrated free abdominal air. Normal soft tissue structures. Normal visualized osseous structures. RAD/Abdomen Single View (Portable) IMPRESSION: Gaseous distended colon without obstruction likely a colonic ileus. Follow is recommended. Electronically Signed: Sb Chicas DO at 15:49 EDT Tel [phone], Service support ,
[2019-01-06 07:11] LABS: Absolute Lymphocyte Count 0.49 X10^3/uL (0.83-4.51); Absolute Neutrophil Count 7.2 X10^3/uL (2.0-7.7); Basophil# 0.02 X10^3/uL; Basophil% 0.2 % (0-1); Eosinophil# 0.22 X10^3/uL; Eosinophils% 2.5 % (0-5); Hematocrit 34.3 % (37-47); Hemoglobin 11.9 g/dL (12.0-15.0); Lymphocyte # 0.49 X10^3/ul (4.0); Lymphocyte % 5.7 % (19-41); Mean Corp Hgb Conc 34.7 g/dL (32-36); Mean Corpuscular Hgb 31.5 pg (27.0-32.0); Mean Corpuscular Volume 90.7 fL (81-99); Mean Platelet Vol. 9.8 fl (6.2-12.0); Monocyte# 0.73 X10^3/uL; Monocyte% 8.4 % (0-10); NRBC Flagged by Analyzer 0 % (0-5); Neutrophil # 7.18 X10^3/uL (2.7-7.7); Neutrophil % 82.9 % (47-70); POSITIVE DIFFERENTIAL YES; POSITIVE MORPHOLOGY YES; Platelet Count 143 K/mm3 (150-450); RBC Distribution Width CV 13.4 % (11.6-14.6); RBC Distribution Width SD 43.9 fl (35.1-43.9); Red Blood Count 3.78 M/mm3 (4.2-5.4); White Blood Count 8.7 K/mm3 (4.4-11.0)
[2019-01-06 07:20] LABS: Differential Indicated SCAN CRITERIA MET
[2019-01-06 07:38] LABS: ALB/GLOB Ratio 0.8 RATIO (0.9-2.4); AST(SGOT) 61 U/L (15-37); Alanine Aminotransfer ALT/SGPT 103 U/L (13-56); Albumin, Serum 2.4 g/dL (3.2-5.0); Alkaline Phosphatase 80 U/L (45-117); Anion Gap 8 (5-15); BUN 8 mg/dL (7-18); BUN/Creat Ratio 13.7 RATIO (10-20); Chloride 109 mmol/L (98-107); Creatinine, Serum 0.58 mg/dL (0.55-1.02); EST Glomerular Filtration Rate 109 mL/min (>60); Est Glom Filt Rate - Afr Amer 132 mL/min (>60); Estimated Creatinine Clearance 41.19 ml/min; Globulin 2.9 g/dL (2.2-4.2); Glucose 109 mg/dL (74-106); Potassium 3.3 mmol/L (3.5-5.1); Protein, Total 5.3 g/dL (6.4-8.2); Sodium Level 140 mmol/L (136-145)
--- NOTE | 2019-01-06 07:47 | PCM.PN.PUL ---
Patient Problems: Active and Suspected Problems (Last Reviewed 01/01/19 @ 08:27 by Estefany Mitchell) Hypoxemia (Acute) Subjective: Patient did okay overnight. Patient did have a small bowel movement this morning. Patient states that she was able to ambulate around the unit twice yesterday. Overall, patient continues to have abdominal discomfort. Objective: KUB this morning is grossly unchanged compared to previous - Physical Exam General: Alert, Oriented x3, Cooperative, No apparent distress, - - No conversational dyspnea. Some coughing with deep inhalation. HEENT: Atraumatic, PERRLA, EOMI, Normocephalic, - - No scleral icterus or injection noted. Oral: Moist Mucosa, No Gingival or Mucosal Lesions/ Ulcerations Neck: Supple, No JVD, No Nodes, Trachea Midline Lungs: No rhonchi, No wheeze, Diminished, Rales - Improving, - - Symmetric expansion. Cardiovascular: Normal S1, Normal S2, No murmurs, No rub noted, No Gallop, Tachycardic Abdomen: Soft, Hypoactive Bowel Sounds, Distended, Obese, Tender Extremities: No clubbing, No cyanosis, Edema - Trace lower extremity Skin: No rashes, No breakdown Musculoskeletal: No Tenderness to Palpation of Joints or Extremities Lymphatic: No Cervical, Supraclavicular, or Inguinal Adenopathy Neurological: Cranial nerves II-XII grossly intact, Neuro grossly intact, Motor Exam 5/5 strength throughout Psych/Mental Status: Alert and oriented to time, place, person, mood and affect Vital Signs Temp Pulse Resp BP Pulse Ox 36.9 C 100 15 157/72 H 92 01/06/19 01:41 01/06/19 01:41 01/06/19 02:00 01/06/19 01:41 01/06/19 02:00 Oxygen Flow Rate (L/min) 1 Oxygen Delivery Method Room Air Weight: 80.9 kg Body Mass Index (BMI) 33.7 Intake and Output for Last 24 Hours 01/04/19 01/05/19 01/06/19 23:59 23:59 23:59 Intake Total 1821 / 2791 3845 / 4925 1622 / 1622 Output Total 600 / 850 450 / 1250 1000 / 1000 Balance 1221 / 1941 3395 / 3675 622 / 622 Laboratory Tests Past 24 Hrs 01/06/19 01/06/19 05:52 05:52 WBC 8.7 RBC 3.78 L Hgb 11.9 L Hct 34.3 L MCV 90.7 MCH 31.5 MCHC 34.7 RDW Std Deviation 43.9 RDW Coeff of Yessi 13.4 Plt Count 143 L MPV 9.8 Immature Gran % (Auto) 0.300 Neut % (Auto) 82.9 H Lymph % (Auto) 5.7 L [place] % (Auto) 8.4 Eos % (Auto) 2.5 Baso % (Auto) 0.2 Absolute Neuts (auto) 7.2 Absolute Lymphs (auto) 0.49 L Nucleated RBC % 0 Sodium 140 Potassium 3.3 L Chloride 109 H Carbon Dioxide 23.0 Anion Gap 8 BUN 8 Creatinine 0.58 Estim Creat Clear Calc 41.19 Est GFR (MDRD) Af Amer 132 Est GFR (MDRD) Non-Af 109 BUN/Creatinine Ratio 13.7 Glucose 109 H Calcium 8.0 L Total Bilirubin 0.90 AST 61 H ALT 103 H Alkaline Phosphatase 80 Total Protein 5.3 L Albumin 2.4 L Globulin 2.9 Albumin/Globulin Ratio 0.8 L Medical Necessity - Tobacco Use Smoking Status: Never smoker Tobacco Use: Non-smoker Assessment/Plan All Active Problems (Last Reviewed 01/01/19 @ 08:27 by Estefany Mitchell) Cholelithiasis (Acute) Hypoxemia (Acute) RECOMMENDATIONS: 1. Encourage improved incentive spirometer use and out of bed as tolerated 2. Await response to antibiotics 3. Wean oxygen as tolerated 4. Aggressive pain control IMPRESSIONS: 1. Hypoxia Atelectasis is suspected and this is slowly improving. Clinical suspicion for atelectasis given patient's decrease in the incentive spirometer use, prolonged ERCP and lack of bowel sounds. Other age-appropriate etiologies would include congestive heart failure or pulmonary embolism. Echocardiogram was not suggestive of any significant wall motion abnormalities. BNP was slightly elevated. Liver enzymes appear to be improving. Patient does have an ileus, which complicates respiratory status. This may be improving given patient's reported bowel movement this morning. Continue to encourage incentive spirometer and out of bed as tolerated. 2. Acute cholecystitis postop day #4/ileus Patient did have a cholecystectomy with ERCP and stone removal. Patient did have a small bowel movement this morning, so hopefully this improves overall condition. Patient is having some postoperative pain. Will defer to surgery. Code Visit Inpatient E&M: 39144 Subs Hosp L2
[2019-01-06] MEDS: Calcium Carbonate 500 MG Tablet 1000 MG PO ×2 (07:48)
--- NOTE | 2019-01-06 08:38 | PN.SURG_ITS ---
Patient Problems: Active and Suspected Problems (Last Reviewed 01/01/19 @ 08:27 by Estefany Mitchell) Hypoxemia (Acute) Subjective: Patient still complains of diffuse belly pain have a small amount of flatus yesterday KUB still shows colonic ileus, patient states she is been able to get up to 750 with her IBS yesterday, her blood counts within normal limits patient is on Zosyn, sputum culture has not been collected - Physical Exam General: Alert, Oriented x3, Cooperative, No apparent distress Cardiovascular: Regular rate Abdomen: Soft, Distended, Tender - Diffuse, no guarding Extremities: No clubbing, No cyanosis Vital Signs Temp Pulse Resp BP Pulse Ox 98.4 F 100 15 157/72 H 92 01/06/19 01:41 01/06/19 01:41 01/06/19 02:00 01/06/19 01:41 01/06/19 08:00 Oxygen Flow Rate (L/min) 1 Oxygen Delivery Method Nasal Cannula Weight: 178 lb 5.663 oz Body Mass Index (BMI) 33.7 Intake and Output for Last 24 Hours 01/04/19 01/05/19 01/06/19 23:59 23:59 23:59 Intake Total 1821 / 2791 3845 / 4925 1622 / 1622 Output Total 600 / 850 450 / 1250 1000 / 1000 Balance 1221 / 1941 3395 / 3675 622 / 622 Laboratory Tests Past 24 Hrs 01/06/19 01/06/19 05:52 05:52 WBC 8.7 RBC 3.78 L Hgb 11.9 L Hct 34.3 L MCV 90.7 MCH 31.5 MCHC 34.7 RDW Std Deviation 43.9 RDW Coeff of Yessi 13.4 Plt Count 143 L MPV 9.8 Immature Gran % (Auto) 0.300 Neut % (Auto) 82.9 H Lymph % (Auto) 5.7 L [place] % (Auto) 8.4 Eos % (Auto) 2.5 Baso % (Auto) 0.2 Absolute Neuts (auto) 7.2 Absolute Lymphs (auto) 0.49 L Nucleated RBC % 0 Sodium 140 Potassium 3.3 L Chloride 109 H Carbon Dioxide 23.0 Anion Gap 8 BUN 8 Creatinine 0.58 Estim Creat Clear Calc 41.19 Est GFR (MDRD) Af Amer 132 Est GFR (MDRD) Non-Af 109 BUN/Creatinine Ratio 13.7 Glucose 109 H Calcium 8.0 L Total Bilirubin 0.90 AST 61 H ALT 103 H Alkaline Phosphatase 80 Total Protein 5.3 L Albumin 2.4 L Globulin 2.9 Albumin/Globulin Ratio 0.8 L Medical Necessity - Tobacco Use Smoking Status: Never smoker Tobacco Use: Non-smoker Assessment/Plan All Active Problems (Last Reviewed 01/01/19 @ 08:27 by Estefany Mitchell) Cholelithiasis (Acute) Hypoxemia (Acute) 68-year-old female postoperative ileus 1. Patient has small amount of flatus however KUB still shows a colonic ileus, will try Dulcolax suppository to see if that helps, encourage ambulation, continue ice chips, will also check a UA. 2. Leukocytosis improved on IV Zosyn for ? pneumonia however sputum culture has not been collected 3. Hypokalemia?replace and recheck this afternoon Margy Mota M.D. Pager: [phone] [facility] [address] [place] [address], [facility], [address] [place] [id number] Office: [phone]
[2019-01-06] MEDS: Potassium Chloride 10mEq/100mL 10 MEQ/100 ML IV.SOLN. 100 MEQ IV BOLUS ×8 (08:40→22:55)
[2019-01-06] MEDS: Bisacodyl 10 MG Suppository RECTAL (10:20)
[2019-01-06] MEDS: Enoxaparin 40 MG/0.4 ML Syringe SC (10:21)
[2019-01-06] MEDS: hydrALAZINE 20 MG/ML Vial 10 MG IV (10:44)
--- NOTE | 2019-01-06 15:00 | NURSING ---
Pt given fleet enema, she held it in for aproximately 10 minutes. She then had two very small hard stool. She states that she would like another enema again this evening.
[2019-01-06] MEDS: Fleet Enema 1 ML RECTAL ×2 (15:07→16:48)
[2019-01-06 15:23] LABS: Mucous, Urine 0 SEEN /hpf (<or=2+)
[2019-01-06 15:46] LABS: Color, Urine Yellow (Yellow); Glucose, Dipstick Normal (Normal); Leukocyte Esterase-Dipstick Negative /ul (Negative); Nitrite-Dipstick Negative (Negative); Occult Blood-Urine 50 /ul (Negative); Protein-Dipstick 30 mg/dl (Negative); Specific Gravity, Urine 1.015 (1.002-1.030); Urine Bilirubin Dipstick Negative (Negative); Urine Clarity Clear (Clear); Urine Urobilinogen Normal (Normal)
--- NOTE | 2019-01-06 15:47 | NURSING ---
Pt walked in the hallway using walker, with standby assist, on room air. She walked aproximately 250 feet. She tolerated well. pulse ox upon returning to her room, on room air was 89%. 2L NC placed back on and pulse ox came back up to 92%.
[2019-01-06 15:53] LABS: Ketone-Dipstick 150 mg/dl (Negative)
[2019-01-06 15:57] LABS: Bacteria RARE /hpf (None Seen); Red Blood Cells-Urine 0-5 SEEN /hpf (0-5); Squamous Epithelial Cells - UA 0-5 SEEN /hpf (5-10); White Blood Cells 0-5 SEEN /hpf (0-5)
[2019-01-06 16:36] LABS: Potassium 3.4 mmol/L (3.5-5.1)
--- NOTE | 2019-01-06 17:30 | NURSING ---
Pt walked in the hallway, standby assist using the walker. she walked aproximately 500 feet. she tolerated fair. she had some increased pain with exertion, which got better once she got back in bed.
[2019-01-06] MEDS: 0.9% NaCl IVPB Med Flush (250 mL) 15 ML IV (19:25)
--- NOTE | 2019-01-06 21:00 | NURSING ---
Soaps suds enema given.
[2019-01-06] MEDS: Acetaminophen 325 MG Tablet 650 MG PO (22:55)
[2019-01-07] MEDS: 0.9% Normal Saline 1,000 ML 125 ML IV (01:40)
[2019-01-07] MEDS: oxyCODONE 5 MG Tablet PO ×5 (01:40→20:32)
[2019-01-07] MEDS: Calcium Carbonate 500 MG Tablet 1000 MG PO (02:21)
[2019-01-07] MEDS: Morphine 2 MG/ML Syringe IV ×2 (04:29→13:30)
[2019-01-07 04:45] VITALS: BP 169/75; PULSE 87; RESP 18; TEMP 36.8; O2SAT 93
--- NOTE | 2019-01-07 05:00 | RAD_ITS ---
STUDY: X-RAY - ABDOMEN/PELVIS REASON FOR EXAM: Female, 68 years old. Ileus TECHNIQUE: 2 views COMPARISON: January 06, 2019 FINDINGS: Normal visualized lung bases. There is an unremarkable bowel gas pattern. Stable gaseous distended colon similar to previous study. There is no demonstrated free abdominal air. Normal soft tissue structures. Degenerative vertebral changes. RAD/Abdomen Single View (Portable) IMPRESSION: Stable bowel gas pattern similar to previous study. No definite sign of obstruction. Electronically Signed: Sb Chicas DO at 8:56 EDT Tel [phone], Service support ,
[2019-01-07 06:21] LABS: Absolute Lymphocyte Count 0.64 X10^3/uL (0.83-4.51); Absolute Neutrophil Count 7.3 X10^3/uL (2.0-7.7); Basophil# 0.01 X10^3/uL; Basophil% 0.1 % (0-1); Eosinophil# 0.02 X10^3/uL; Eosinophils% 0.2 % (0-5); Hematocrit 33.1 % (37-47); Hemoglobin 11.1 g/dL (12.0-15.0); Lymphocyte # 0.64 X10^3/ul (4.0); Lymphocyte % 7.3 % (19-41); Mean Corp Hgb Conc 33.5 g/dL (32-36); Mean Corpuscular Hgb 30.7 pg (27.0-32.0); Mean Corpuscular Volume 91.4 fL (81-99); Mean Platelet Vol. 9.1 fl (6.2-12.0); Monocyte# 0.74 X10^3/uL; Monocyte% 8.4 % (0-10); NRBC Flagged by Analyzer 0 % (0-5); Neutrophil # 7.32 X10^3/uL (2.7-7.7); Neutrophil % 83.4 % (47-70); POSITIVE MORPHOLOGY YES; Platelet Count 149 K/mm3 (150-450); RBC Distribution Width CV 13.4 % (11.6-14.6); RBC Distribution Width SD 45.6 fl (35.1-43.9); Red Blood Count 3.62 M/mm3 (4.2-5.4); White Blood Count 8.8 K/mm3 (4.4-11.0)
[2019-01-07 06:25] LABS: Differential Indicated SCAN CRITERIA MET
[2019-01-07 06:50] LABS: AST(SGOT) 54 U/L (15-37); Alanine Aminotransfer ALT/SGPT 76 U/L (13-56); Albumin, Serum 2.2 g/dL (3.2-5.0); Alkaline Phosphatase 79 U/L (45-117); Anion Gap 8 (5-15); BUN 7 mg/dL (7-18); BUN/Creat Ratio 15.6 RATIO (10-20); Bilirubin, Direct 0.16 mg/dL (0.00-0.30); Calcium,Total 7.5 mg/dL (8.5-10.1); Chloride 107 mmol/L (98-107); Creatinine, Serum 0.45 mg/dL (0.55-1.02); EST Glomerular Filtration Rate 147 mL/min (>60); Est Glom Filt Rate - Afr Amer 178 mL/min (>60); Estimated Creatinine Clearance 41.19 ml/min; Globulin 3.1 g/dL (2.2-4.2); Glucose 83 mg/dL (74-106); Potassium 3.7 mmol/L (3.5-5.1); Protein, Total 5.3 g/dL (6.4-8.2); Sodium Level 138 mmol/L (136-145)
[2019-01-07 07:45] VITALS: O2SAT 96
--- NOTE | 2019-01-07 07:59 | PN_ITS ---
Patient Problems: Active and Suspected Problems (Last Reviewed 01/01/19 @ 08:27 by Estefany Mitchell) Hypoxemia (Acute) Subjective: Patient did okay overnight. Patient remains hemodynamically stable, but still requiring supplemental oxygen to maintain saturations. Patient states her abdominal discomfort is grossly unchanged compared to previous. Patient did have an enema overnight and states that she had some gas pass shortly thereafter, but none was reported overnight. Objective: KUB was personally reviewed and appears to be grossly unchanged compared to previous. - Physical Exam General: Alert, Oriented x3, Cooperative, No apparent distress, Well developed, Well nourished, - - No conversational dyspnea. HEENT: Atraumatic, PERRLA, EOMI, Normocephalic, - - No scleral icterus or injection noted. Oral: Moist Mucosa, No Gingival or Mucosal Lesions/ Ulcerations Neck: Supple, No JVD, No Nodes, Trachea Midline Lungs: No rhonchi, No wheeze, Diminished, Rales - Right greater than left base, - - Symmetric expansion. Some splinting appreciated. Cardiovascular: Regular rate, Regular Rhythm, Normal S1, Normal S2, No murmurs, No rub noted, No Gallop Abdomen: Soft, Hypoactive Bowel Sounds, Distended, Tender - No rebound or guarding appreciated Extremities: No clubbing, No cyanosis, No edema, Capillary Refill Less than 3 Seconds Skin: No rashes, No breakdown, Incision - Clean, dry and intact. Musculoskeletal: No Tenderness to Palpation of Joints or Extremities Lymphatic: No Cervical, Supraclavicular, or Inguinal Adenopathy Neurological: Cranial nerves II-XII grossly intact, Neuro grossly intact, Motor Exam 5/5 strength throughout Psych/Mental Status: Alert and oriented to time, place, person, mood and affect Vital Signs Temp Pulse Resp BP Pulse Ox 36.8 C 87 18 169/75 H 93 01/07/19 04:45 01/07/19 04:45 01/07/19 04:45 01/07/19 04:45 01/07/19 04:45 Oxygen Flow Rate (L/min) 2 Oxygen Delivery Method Nasal Cannula Weight: 80.9 kg Body Mass Index (BMI) 33.7 Intake and Output for Last 24 Hours 01/05/19 01/06/19 01/07/19 23:59 23:59 23:59 Intake Total 3845 / 4925 5762 / 5762 686.5 / 686.5 Output Total 450 / 1250 1000 / 1000 Balance 3395 / 3675 4762 / 4762 686.5 / 686.5 Laboratory Tests Past 24 Hrs 01/06/19 01/06/19 01/07/19 15:00 16:13 05:37 WBC 8.8 RBC 3.62 L Hgb 11.1 L Hct 33.1 L MCV 91.4 MCH 30.7 MCHC 33.5 RDW Std Deviation 45.6 H RDW Coeff of Yessi 13.4 Plt Count 149 L MPV 9.1 Immature Gran % (Auto) 0.600 Neut % (Auto) 83.4 H Lymph % (Auto) 7.3 L [place] % (Auto) 8.4 Eos % (Auto) 0.2 Baso % (Auto) 0.1 Absolute Neuts (auto) 7.3 Absolute Lymphs (auto) 0.64 L Nucleated RBC % 0 Sodium Potassium 3.4 L Chloride Carbon Dioxide Anion Gap BUN Creatinine Estim Creat Clear Calc Est GFR (MDRD) Af Amer Est GFR (MDRD) Non-Af BUN/Creatinine Ratio Glucose Calcium Total Bilirubin Direct Bilirubin AST ALT Alkaline Phosphatase Total Protein Albumin Globulin Urine Color Yellow Urine Clarity Clear Urine pH 6.0 Ur Specific [place] 1.015 Urine Protein 30 H Urine Glucose (UA) Normal Urine Ketones 150 H Urine Occult Blood 50 H Urine Nitrite Negative Urine Bilirubin Negative Urine Urobilinogen Normal Ur Leukocyte Esterase Negative Urine RBC 0-5 SEEN Urine WBC 0-5 SEEN Ur Squamous Epith Cells 0-5 SEEN Urine Bacteria RARE Urine Mucus 0 SEEN 01/07/19 05:37 WBC RBC Hgb Hct MCV MCH MCHC RDW Std Deviation RDW Coeff of Yessi Plt Count MPV Immature Gran % (Auto) Neut % (Auto) Lymph % (Auto) [place] % (Auto) Eos % (Auto) Baso % (Auto) Absolute Neuts (auto) Absolute Lymphs (auto) Nucleated RBC % Sodium 138 Potassium 3.7 Chloride 107 Carbon Dioxide 23.0 Anion Gap 8 BUN 7 Creatinine 0.45 L Estim Creat Clear Calc 41.19 Est GFR (MDRD) Af Amer 178 Est GFR (MDRD) Non-Af 147 BUN/Creatinine Ratio 15.6 Glucose 83 Calcium 7.5 L Total Bilirubin 0.80 Direct Bilirubin 0.16 AST 54 H ALT 76 H Alkaline Phosphatase 79 Total Protein 5.3 L Albumin 2.2 L Globulin 3.1 Urine Color Urine Clarity Urine pH Ur Specific [place] Urine Protein Urine Glucose (UA) Urine Ketones Urine Occult Blood Urine Nitrite Urine Bilirubin Urine Urobilinogen Ur Leukocyte Esterase Urine RBC Urine WBC Ur Squamous Epith Cells Urine Bacteria Urine Mucus Clinical Impression(s) from Imaging Studies KUB X-Ray 01/06/19 05:05 IMPRESSION: Gaseous distended colon without obstruction likely a colonic ileus. Follow is recommended. Electronically Signed: Sb Chicas DO at 15:49 EDT Tel [phone], Service support , Medical Necessity - Tobacco Use Smoking Status: Never smoker Tobacco Use: Non-smoker Assessment/Plan All Active Problems (Last Reviewed 01/01/19 @ 08:27 by Estefany Mitchell) Cholelithiasis (Acute) Hypoxemia (Acute) RECOMMENDATIONS: 1. Encourage improved incentive spirometer use and out of bed as tolerated 2. Consider decompression colonoscopy 3. Wean oxygen as tolerated 4. Aggressive pain control IMPRESSIONS: 1. Hypoxia Atelectasis is suspected and this is slowly improving, but patient is still requiring supplemental oxygen to maintain saturations. Clinical suspicion for atelectasis given patient's decrease in the incentive spirometer use, prolonged ERCP and lack of bowel sounds. Other age-appropriate etiologies would include congestive heart failure or pulmonary embolism. Echocardiogram was not suggestive of any significant wall motion abnormalities. BNP was slightly elevated. Liver enzymes appear to be normalized. Patient does have an ileus, which complicates respiratory status. This may be improving given patient's reported bowel movement this morning. Continue to encourage incentive spirometer and out of bed as tolerated. 2. Acute cholecystitis postop day #5/ileus Patient did have a cholecystectomy with ERCP and stone removal. Patient did have a small bowel movement this morning, so hopefully this improves overall condition. Unclear if patient would benefit from active decompressive measures of the colon. Will defer to surgery. Code Visit Inpatient E&M: 73565 Subs Hosp L2
--- NOTE | 2019-01-07 08:53 | PCM.PN.SRG ---
Patient Problems: Active and Suspected Problems (Last Reviewed 01/01/19 @ 08:27 by Estefany Mitchell) Hypoxemia (Acute) Subjective: Patient still complains of abdominal pain had a little bit of flatus with the enemas yesterday, KUB still shows distended right and transverse colon with a decompressed left colon, patient ambulating halls - Physical Exam General: Alert, Oriented x3, Cooperative, No apparent distress HEENT: Atraumatic Cardiovascular: Regular rate Abdomen: Soft, Distended, Tender - Diffuse, no peritoneal signs, - - Incisions clean dry and intact with Steri's. Extremities: No clubbing, No cyanosis Vital Signs Temp Pulse Resp BP Pulse Ox 98.2 F 87 18 169/75 H 96 01/07/19 04:45 01/07/19 04:45 01/07/19 04:45 01/07/19 04:45 01/07/19 07:45 Oxygen Flow Rate (L/min) 2 Oxygen Delivery Method Nasal Cannula Weight: 178 lb 5.663 oz Body Mass Index (BMI) 33.7 Intake and Output for Last 24 Hours 01/05/19 01/06/19 01/07/19 23:59 23:59 23:59 Intake Total 3845 / 4925 5762 / 5762 686.5 / 686.5 Output Total 450 / 1250 1000 / 1000 Balance 3395 / 3675 4762 / 4762 686.5 / 686.5 Laboratory Tests Past 24 Hrs 01/06/19 01/06/19 01/07/19 15:00 16:13 05:37 WBC 8.8 RBC 3.62 L Hgb 11.1 L Hct 33.1 L MCV 91.4 MCH 30.7 MCHC 33.5 RDW Std Deviation 45.6 H RDW Coeff of Yessi 13.4 Plt Count 149 L MPV 9.1 Immature Gran % (Auto) 0.600 Neut % (Auto) 83.4 H Lymph % (Auto) 7.3 L [place] % (Auto) 8.4 Eos % (Auto) 0.2 Baso % (Auto) 0.1 Absolute Neuts (auto) 7.3 Absolute Lymphs (auto) 0.64 L Nucleated RBC % 0 Sodium Potassium 3.4 L Chloride Carbon Dioxide Anion Gap BUN Creatinine Estim Creat Clear Calc Est GFR (MDRD) Af Amer Est GFR (MDRD) Non-Af BUN/Creatinine Ratio Glucose Calcium Total Bilirubin Direct Bilirubin AST ALT Alkaline Phosphatase Total Protein Albumin Globulin Urine Color Yellow Urine Clarity Clear Urine pH 6.0 Ur Specific [place] 1.015 Urine Protein 30 H Urine Glucose (UA) Normal Urine Ketones 150 H Urine Occult Blood 50 H Urine Nitrite Negative Urine Bilirubin Negative Urine Urobilinogen Normal Ur Leukocyte Esterase Negative Urine RBC 0-5 SEEN Urine WBC 0-5 SEEN Ur Squamous Epith Cells 0-5 SEEN Urine Bacteria RARE Urine Mucus 0 SEEN 01/07/19 05:37 WBC RBC Hgb Hct MCV MCH MCHC RDW Std Deviation RDW Coeff of Yessi Plt Count MPV Immature Gran % (Auto) Neut % (Auto) Lymph % (Auto) [place] % (Auto) Eos % (Auto) Baso % (Auto) Absolute Neuts (auto) Absolute Lymphs (auto) Nucleated RBC % Sodium 138 Potassium 3.7 Chloride 107 Carbon Dioxide 23.0 Anion Gap 8 BUN 7 Creatinine 0.45 L Estim Creat Clear Calc 41.19 Est GFR (MDRD) Af Amer 178 Est GFR (MDRD) Non-Af 147 BUN/Creatinine Ratio 15.6 Glucose 83 Calcium 7.5 L Total Bilirubin 0.80 Direct Bilirubin 0.16 AST 54 H ALT 76 H Alkaline Phosphatase 79 Total Protein 5.3 L Albumin 2.2 L Globulin 3.1 Urine Color Urine Clarity Urine pH Ur Specific [place] Urine Protein Urine Glucose (UA) Urine Ketones Urine Occult Blood Urine Nitrite Urine Bilirubin Urine Urobilinogen Ur Leukocyte Esterase Urine RBC Urine WBC Ur Squamous Epith Cells Urine Bacteria Urine Mucus Medical Necessity - Tobacco Use Smoking Status: Never smoker Tobacco Use: Non-smoker Assessment/Plan All Active Problems (Last Reviewed 01/01/19 @ 08:27 by Estefany Mitchell) Cholelithiasis (Acute) Hypoxemia (Acute) 68-year-old female postoperative ileus 1. Patient has small amount of flatus however KUB still shows a colonic ileus?left colon is decompressed there is still stool at the hepatic flexure, encourage ambulation, continue ice chips, UA did not show any source of infection. 2. Will DC Zosyn, patient off of nasal cannula and able to do 1250 on I-S, sputum is pending 3. Hypokalemia?improved after replacements yesterday x2 Margy Mota M.D. Pager: [phone] [facility] [address] [place] [address], [facility], [address] [place] [address] Office: [phone]
[2019-01-07] MEDS: Enoxaparin 40 MG/0.4 ML Syringe SC (10:35)
[2019-01-07 10:45] VITALS: BP 174/82; PULSE 100; RESP 18; TEMP 36.8; O2SAT 92
--- NOTE | 2019-01-07 16:01 | NURSING ---
Pt has walked in the hallways around the entire unit, 4 times today. she is tolerating fair, with some abdominal and back pain with exertion. she states that she has had some minimal passing of flatus. she still complains on abdominal bloating.
[2019-01-07 16:45] VITALS: BP 172/80; PULSE 90; RESP 14; TEMP 36.7; O2SAT 92
[2019-01-07 22:30] VITALS: BP 157/86; PULSE 102; RESP 15; TEMP 37.4; O2SAT 93
[2019-01-08] MEDS: oxyCODONE 5 MG Tablet PO ×5 (00:55→17:43)
[2019-01-08] MEDS: Calcium Carbonate 500 MG Tablet 1000 MG PO ×2 (00:55→09:26)
[2019-01-08 03:45] VITALS: BP 154/64; PULSE 99; RESP 18; TEMP 36.9; O2SAT 94
--- NOTE | 2019-01-08 05:55 | RAD_ITS ---
STUDY: X-RAY - ABDOMEN/PELVIS REASON FOR EXAM: Female, 68 years old. Small bowel obstruction. TECHNIQUE: Two AP supine views of the abdomen and pelvis. COMPARISON: Comparison is made with prior study dated January 07, 2019. FINDINGS: Distended colon with fecal material and gas. There is distention of the cecum. The cecum measures 13.9 cm in transverse dimension. The visualized liver, spleen and kidneys are grossly normal in size and morphology. There are calcified phleboliths in the pelvis. There are diffuse degenerative changes of the visualized lumbar spine. RAD/Abdomen Single View IMPRESSION: Distended cecum with a transverse dimension of 13.9 cm. Distended colon down to the splenic flexure containing gas and fecal material. Electronically Signed: Ihsan Fuentes, at 10:35 EDT , Service support ,
[2019-01-08 06:40] LABS: Absolute Neutrophil Count 7.9 X10^3/uL (2.0-7.7); Basophil# 0.02 X10^3/uL; Basophil% 0.2 % (0-1); Eosinophil# 0.03 X10^3/uL; Eosinophils% 0.3 % (0-5); Hematocrit 32.2 % (37-47); Hemoglobin 11.3 g/dL (12.0-15.0); Lymphocyte % 6.2 % (19-41); Mean Corp Hgb Conc 35.1 g/dL (32-36); Mean Corpuscular Hgb 31.3 pg (27.0-32.0); Mean Corpuscular Volume 89.2 fL (81-99); Mean Platelet Vol. 8.8 fl (6.2-12.0); Monocyte# 1.08 X10^3/uL; Monocyte% 11.1 % (0-10); NRBC Flagged by Analyzer 0 % (0-5); Neutrophil # 7.89 X10^3/uL (2.7-7.7); POSITIVE DIFFERENTIAL YES; Platelet Count 169 K/mm3 (150-450); RBC Distribution Width CV 13.3 % (11.6-14.6); RBC Distribution Width SD 43.8 fl (35.1-43.9); Red Blood Count 3.61 M/mm3 (4.2-5.4); White Blood Count 9.7 K/mm3 (4.4-11.0)
--- NOTE | 2019-01-08 06:41 | PCM.PN.PUL ---
Patient Problems: Active and Suspected Problems (Last Reviewed 01/01/19 @ 08:27 by Estefany Mitchell) Hypoxemia (Acute) Subjective: The patient was seen and examined at the bedside this morning. Events from the last 24 hours have been reviewed. The patient is currently afebrile, hemodynamically stable and maintaining appropriate oxygen saturations on room air. She is currently sitting upright in bed attempting to drink coffee. She denies the presence of shortness of breath or cough. She does report that she has been utilizing her incentive spirometer as recommended. She does confirm the presence of mild abdominal pain. Objective: The patient's most recent lab work, culture data and imaging studies have all been personally reviewed. Sputum culture dated January 06 appears to be normal respiratory reuben. - Physical Exam General: Alert, Oriented x3, Cooperative, No apparent distress HEENT: Atraumatic, PERRLA, Normocephalic Oral: No Gingival or Mucosal Lesions/ Ulcerations Neck: Supple, No Nodes, Trachea Midline Lungs: No rhonchi, No wheeze, No rales, Diminished Cardiovascular: Regular rate, Regular Rhythm, Normal S1, Normal S2, No murmurs Abdomen: Soft, Distended, Obese, Tender Extremities: No clubbing, No cyanosis, No edema Skin: No breakdown Musculoskeletal: No Tenderness to Palpation of Joints or Extremities Lymphatic: No Cervical, Supraclavicular, or Inguinal Adenopathy Neurological: Cranial nerves II-XII grossly intact, Neuro grossly intact Psych/Mental Status: Alert and oriented to time, place, person, mood and affect Vital Signs Temp Pulse Resp BP Pulse Ox 98.5 F 99 18 154/64 H 94 01/08/19 03:45 01/08/19 03:45 01/08/19 03:45 01/08/19 03:45 01/08/19 03:45 Oxygen Flow Rate (L/min) 2 Oxygen Delivery Method Room Air Weight: 178 lb 5.663 oz Body Mass Index (BMI) 33.7 Intake and Output for Last 24 Hours 01/06/19 01/07/19 01/08/19 23:59 23:59 23:59 Intake Total 5762 / 5762 2499.5 / 3153.5 1046 / 1046 Output Total 1000 / 1000 Balance 4762 / 4762 2499.5 / 3153.5 1046 / 1046 Microbiology Past 72 Hours 01/06/19 17:45 Gram Stain - Final Sputum, Expectorated/Coughed Respiratory Culture - Preliminary Appears to be normal respiratory reuben. Further studies to follow. Laboratory Tests Past 24 Hrs 01/07/19 01/08/19 01/08/19 05:37 06:05 06:05 WBC Pending RBC Pending Hgb Pending Hct Pending MCV Pending MCH Pending MCHC Pending RDW Std Deviation Pending RDW Coeff of Yessi Pending Plt Count Pending Neut % (Auto) Pending Absolute Neuts (auto) Pending Sodium 138 Pending Potassium 3.7 Pending Chloride 107 Pending Carbon Dioxide 23.0 Pending Anion Gap 8 Pending BUN 7 Pending Creatinine 0.45 L Pending Estim Creat Clear Calc 41.19 Est GFR (MDRD) Af Amer 178 Pending Est GFR (MDRD) Non-Af 147 Pending BUN/Creatinine Ratio 15.6 Pending Glucose 83 Pending Calcium 7.5 L Pending Total Bilirubin 0.80 Direct Bilirubin 0.16 AST 54 H ALT 76 H Alkaline Phosphatase 79 Total Protein 5.3 L Albumin 2.2 L Globulin 3.1 Clinical Impression(s) from Imaging Studies Cholangiogram 01/02/19 11:30 IMPRESSION: Mildly dilated common bile duct. No intraluminal filling defect is seen. Electronically Signed: Ihsan Fuentes, at 13:46 EDT , Service support , ERCP X-Ray 01/03/19 09:45 IMPRESSION: A filling defect is seen in the distal portion of the common bile duct. Retained calculus should be ruled out. Electronically Signed: Ihsan Fuentes, at 12:26 EDT , Service support , Chest X-Ray 01/04/19 07:09 IMPRESSION: Findings suggestive of bibasilar atelectasis/infiltrates. Follow-up is recommended. Electronically Signed: Ihsan Fuentes, at 11:15 EDT , Service support , Abdomen X-Ray 01/04/19 07:10 IMPRESSION: Gaseous distention of the colon down to the rectum. The cecum measures 12.3 cm in transverse dimension. Electronically Signed: Ihsan Fuentes, at 14:33 EDT , Service support , KUB X-Ray 01/05/19 05:55 IMPRESSION: Intestinal ileus suspected with retained fecal material, not significantly changed since previous exam. Electronically Signed: Nathaly Callahan MD at 7:47 EDT , Service support , KUB X-Ray 01/06/19 05:05 IMPRESSION: Gaseous distended colon without obstruction likely a colonic ileus. Follow is recommended. Electronically Signed: Sb Chicas DO at 15:49 EDT Tel [phone], Service support , KUB X-Ray 01/07/19 05:00 IMPRESSION: Stable bowel gas pattern similar to previous study. No definite sign of obstruction. Electronically Signed: Sb Chicas DO at 8:56 EDT Tel [phone], Service support , Medical Necessity - Tobacco Use Smoking Status: Never smoker Tobacco Use: Non-smoker Assessment/Plan All Active Problems (Last Reviewed 01/01/19 @ 08:27 by Estefany Mitchell) Cholelithiasis (Acute) Hypoxemia (Acute) RECOMMENDATIONS: 1. Continue to encourage incentive spirometer use and mobilize patient as tolerated. 2. Potassium repletion as ordered. Consider checking magnesium level. IMPRESSIONS: 1. Acute hypoxemic respiratory insufficiency Likely secondary to suspected atelectasis. The patient is currently maintaining appropriate oxygen saturations on room air. Continue to encourage incentive spirometer use and mobilize patient as tolerated. Will defer management of the patient's postoperative ileus to general surgery. 2. Hypokalemia Electrolyte repletion as ordered. Consider checking magnesium level as well. 3. Acute cholecystitis postop day #6/ileus The patient did have a cholecystectomy with ERCP and stone removal. Continue pain control and bowel regimen per surgery recommendations. This note was generated with [employer] dictation software. It may contain incorrect words, spelling, and punctuation that were not noted in checking the note before signing. Code Visit Inpatient E&M: 40526 Subs Hosp L2
[2019-01-08 06:56] LABS: Differential Indicated SCAN CRITERIA MET
[2019-01-08 07:01] LABS: Anion Gap 6 (5-15); BUN 3 mg/dL (7-18); BUN/Creat Ratio 6.8 RATIO (10-20); Calcium,Total 7.9 mg/dL (8.5-10.1); Chloride 103 mmol/L (98-107); Creatinine, Serum 0.44 mg/dL (0.55-1.02); EST Glomerular Filtration Rate 150 mL/min (>60); Est Glom Filt Rate - Afr Amer 181 mL/min (>60); Estimated Creatinine Clearance 41.19 ml/min; Glucose 127 mg/dL (74-106); Potassium 3.1 mmol/L (3.5-5.1); Sodium Level 135 mmol/L (136-145)
[2019-01-08 07:08] VITALS: O2SAT 97
[2019-01-08 07:16] LABS: Differential Comment SCANNED
[2019-01-08 07:59] VITALS: BP 154/81; PULSE 105; RESP 16; TEMP 37.3; O2SAT 92
[2019-01-08] MEDS: Polyethylene Glycol 3350 17 GM PACKET 34 GM PO (08:11)
--- NOTE | 2019-01-08 08:29 | PCM.PN.SRG ---
Patient Problems: Active and Suspected Problems (Last Reviewed 01/01/19 @ 08:27 by Estefany Mitchell) Hypoxemia (Acute) Subjective: Patient still reports right upper quadrant pain. Passing minimal flatus. No nausea or vomiting. - Physical Exam General: Oriented x3 Lungs: Normal air movement Cardiovascular: Regular rate, Regular Rhythm Abdomen: Distended, Tender Vital Signs Temp Pulse Resp BP Pulse Ox 99.2 F H 105 H 16 154/81 H 92 01/08/19 07:59 01/08/19 07:59 01/08/19 07:59 01/08/19 07:59 01/08/19 07:59 Oxygen Flow Rate (L/min) 2 Oxygen Delivery Method Room Air Weight: 178 lb 5.663 oz Body Mass Index (BMI) 33.7 Intake and Output for Last 24 Hours 01/06/19 01/07/19 01/08/19 23:59 23:59 23:59 Intake Total 5762 / 5762 2499.5 / 3153.5 1046 / 1046 Output Total 1000 / 1000 Balance 4762 / 4762 2499.5 / 3153.5 1046 / 1046 Microbiology Past 72 Hours 01/06/19 17:45 Gram Stain - Final Sputum, Expectorated/Coughed Respiratory Culture - Preliminary Appears to be normal respiratory reuben. Further studies to follow. Laboratory Tests Past 24 Hrs 01/08/19 01/08/19 06:05 06:05 WBC 9.7 RBC 3.61 L Hgb 11.3 L Hct 32.2 L MCV 89.2 MCH 31.3 MCHC 35.1 RDW Std Deviation 43.8 RDW Coeff of Yessi 13.3 Plt Count 169 MPV 8.8 Immature Gran % (Auto) 1.200 H Neut % (Auto) 81.0 H Lymph % (Auto) 6.2 L [place] % (Auto) 11.1 H Eos % (Auto) 0.3 Baso % (Auto) 0.2 Absolute Neuts (auto) 7.9 H Absolute Lymphs (auto) 0.60 L Nucleated RBC % 0 Differential Comment SCANNED Sodium 135 L Potassium 3.1 L Chloride 103 Carbon Dioxide 26.0 Anion Gap 6 BUN 3 L Creatinine 0.44 L Estim Creat Clear Calc 41.19 Est GFR (MDRD) Af Amer 181 Est GFR (MDRD) Non-Af 150 BUN/Creatinine Ratio 6.8 L Glucose 127 H Calcium 7.9 L Medical Necessity - Tobacco Use Smoking Status: Never smoker Tobacco Use: Non-smoker Assessment/Plan All Active Problems (Last Reviewed 01/01/19 @ 08:27 by Estefany Mitchell) Cholelithiasis (Acute) Hypoxemia (Acute) 68-year-old female with postoperative ileus 1. Patient had KUB is morning which still shows a very distended cecum and transverse colon. She has a large fecal load in the hepatic flexure of the colon. I do not believe that a decompressive colonoscopy would be able to reach the cecum past the stool. I will try some cathartics from above. I will give her some morning coffee and a dose of MiraLAX to see if this will stimulate the colon. I have also encouraged ambulation. Patient is currently saturating 94% on room air. She is breathing comfortably. Ervin Salomon MD Pager: [facility] [address] [place] [address], [address] [place] [address] Office:
[2019-01-08] MEDS: Enoxaparin 40 MG/0.4 ML Syringe SC (09:21)
[2019-01-08 11:35] VITALS: BP 152/84; PULSE 102; RESP 16; TEMP 36.8; O2SAT 92
[2019-01-08 14:52] VITALS: BP 137/64; PULSE 101; RESP 16; TEMP 36.8; O2SAT 94
[2019-01-08 20:54] VITALS: BP 150/81; PULSE 104; RESP 18; TEMP 37.2; O2SAT 94
[2019-01-09] MEDS: oxyCODONE 5 MG Tablet PO ×3 (00:40→21:30)
[2019-01-09 03:10] VITALS: BP 130/82; PULSE 96; RESP 18; TEMP 37.3; O2SAT 95
[2019-01-09 07:08] LABS: Anion Gap 6 (5-15); BUN 2 mg/dL (7-18); Calcium,Total 7.7 mg/dL (8.5-10.1); Chloride 100 mmol/L (98-107); EST Glomerular Filtration Rate 130 mL/min (>60); Est Glom Filt Rate - Afr Amer 157 mL/min (>60); Estimated Creatinine Clearance 41.19 ml/min; Glucose 127 mg/dL (74-106); Potassium 2.9 mmol/L (3.5-5.1); Sodium Level 136 mmol/L (136-145)
[2019-01-09] MEDS: Polyethylene Glycol 3350 17 GM PACKET 34 GM PO (08:16)
[2019-01-09] MEDS: Magnesium Citrate 300 ML 150 ML PO (08:33)
[2019-01-09] MEDS: 0.9% NaCl Peripheral Flush Adult/Peds IV (08:34)
[2019-01-09] MEDS: Potassium Chloride 10mEq/100mL 10 MEQ/100 ML IV.SOLN. 100 MEQ IV BOLUS ×4 (08:34→12:03)
[2019-01-09 09:10] VITALS: BP 166/76; PULSE 104; RESP 18; TEMP 36.8; O2SAT 92
[2019-01-09] MEDS: Docusate Sodium 100 MG Capsule PO ×2 (09:54→21:30)
[2019-01-09] MEDS: Pantoprazole Sodium 40 MG Tablet PO (09:54)
[2019-01-09] MEDS: Enoxaparin 40 MG/0.4 ML Syringe SC (09:54)
--- NOTE | 2019-01-09 09:58 | PCM.PN.PUL ---
Patient Problems: Active and Suspected Problems (Last Reviewed 01/01/19 @ 08:27 by Estefany Mitchell) Hypoxemia (Acute) Subjective: The patient was seen and examined at the bedside this morning. Events from the last 24 hours have been reviewed. The patient is currently afebrile, hemodynamically stable and maintaining appropriate oxygen saturations on room air. The patient's potassium remains low this morning at 2.9. Objective: The patient's most recent lab work, culture data and imaging studies have all been personally reviewed. Sputum culture dated January 06 appears to be normal respiratory reuben. - Physical Exam General: Alert, Cooperative, No apparent distress HEENT: Atraumatic, PERRLA, Normocephalic Oral: No Gingival or Mucosal Lesions/ Ulcerations Neck: Supple, No Nodes, Trachea Midline Lungs: No rhonchi, No wheeze, No rales Cardiovascular: Regular rate, Regular Rhythm, Normal S1, Normal S2 Abdomen: Soft, Distended, Obese Extremities: No clubbing, No cyanosis, No edema Skin: No breakdown Musculoskeletal: No Tenderness to Palpation of Joints or Extremities Lymphatic: No Cervical, Supraclavicular, or Inguinal Adenopathy Neurological: Cranial nerves II-XII grossly intact, Neuro grossly intact Psych/Mental Status: Alert and oriented to time, place, person, mood and affect Vital Signs Temp Pulse Resp BP Pulse Ox 98.3 F 104 H 18 166/76 H 92 01/09/19 09:10 01/09/19 09:10 01/09/19 09:10 01/09/19 09:10 01/09/19 09:10 Oxygen Flow Rate (L/min) 2 Oxygen Delivery Method Room Air Weight: 178 lb 5.663 oz Body Mass Index (BMI) 33.7 Intake and Output for Last 24 Hours 01/07/19 01/08/19 01/09/19 23:59 23:59 23:59 Intake Total 2499.5 / 3153.5 3937 / 3937 529 / 529 Balance 2499.5 / 3153.5 3937 / 3937 529 / 529 Microbiology Past 72 Hours 01/06/19 17:45 Gram Stain - Final Sputum, Expectorated/Coughed Respiratory Culture - Final Laboratory Tests Past 24 Hrs 01/09/19 06:03 Sodium 136 Potassium 2.9 L Chloride 100 Carbon Dioxide 30.0 Anion Gap 6 BUN 2 L Creatinine 0.50 L Estim Creat Clear Calc 41.19 Est GFR (MDRD) Af Amer 157 Est GFR (MDRD) Non-Af 130 BUN/Creatinine Ratio 4.0 L Glucose 127 H Calcium 7.7 L Clinical Impression(s) from Imaging Studies Cholangiogram 01/02/19 11:30 IMPRESSION: Mildly dilated common bile duct. No intraluminal filling defect is seen. Electronically Signed: Ihsan Fuentes, at 13:46 EDT , Service support , ERCP X-Ray 01/03/19 09:45 IMPRESSION: A filling defect is seen in the distal portion of the common bile duct. Retained calculus should be ruled out. Electronically Signed: Ihsan Fuentes, at 12:26 EDT , Service support , Chest X-Ray 01/04/19 07:09 IMPRESSION: Findings suggestive of bibasilar atelectasis/infiltrates. Follow-up is recommended. Electronically Signed: Ihsan Fuentes, at 11:15 EDT , Service support , Abdomen X-Ray 01/04/19 07:10 IMPRESSION: Gaseous distention of the colon down to the rectum. The cecum measures 12.3 cm in transverse dimension. Electronically Signed: Ihsan Fuentes, at 14:33 EDT , Service support , KUB X-Ray 01/05/19 05:55 IMPRESSION: Intestinal ileus suspected with retained fecal material, not significantly changed since previous exam. Electronically Signed: Nathaly Callahan MD at 7:47 EDT , Service support , KUB X-Ray 01/06/19 05:05 IMPRESSION: Gaseous distended colon without obstruction likely a colonic ileus. Follow is recommended. Electronically Signed: Sb Chicas DO at 15:49 EDT Tel [phone], Service support , KUB X-Ray 01/07/19 05:00 IMPRESSION: Stable bowel gas pattern similar to previous study. No definite sign of obstruction. Electronically Signed: Sb Chicas DO at 8:56 EDT Tel [phone], Service support , KUB X-Ray 01/08/19 05:55 IMPRESSION: Distended cecum with a transverse dimension of 13.9 cm. Distended colon down to the splenic flexure containing gas and fecal material. Electronically Signed: Ihsan Fuentes, at 10:35 EDT , Service support , Medical Necessity - Tobacco Use Smoking Status: Never smoker Tobacco Use: Non-smoker Assessment/Plan All Active Problems (Last Reviewed 01/01/19 @ 08:27 by Estefany Mitchell) Cholelithiasis (Acute) Hypoxemia (Acute) RECOMMENDATIONS: 1. Continue to encourage incentive spirometer use and mobilize patient as tolerated. 2. Potassium repletion as ordered. IMPRESSIONS: 1. Acute hypoxemic respiratory insufficiency Likely secondary to suspected atelectasis. The patient is currently maintaining appropriate oxygen saturations on room air. Continue to encourage incentive spirometer use and mobilize patient as tolerated. Will defer management of the patient's postoperative ileus to general surgery. 2. Hypokalemia Electrolyte repletion as ordered. 3. Acute cholecystitis postop day #7/ileus The patient did have a cholecystectomy with ERCP and stone removal. Continue pain control and bowel regimen per surgery recommendations. This note was generated with [employer] software. It may contain incorrect words, spelling, and punctuation that were not noted in checking the note before signing. DISPOSITION: As the patient is without further pulmonary needs, will sign off. Please call with any additional questions. Code Visit Inpatient E&M: 32198 Subs Hosp L2
[2019-01-09 10:23] LABS: Magnesium 1.8 mg/dL (1.6-2.6)
[2019-01-09] MEDS: Ensure Clear 120 ML Liquid PO (11:00)
[2019-01-09 15:10] VITALS: BP 145/65; PULSE 104; RESP 18; TEMP 36.9; O2SAT 93
[2019-01-09 19:43] VITALS: BP 140/77; PULSE 92; RESP 18; TEMP 36.9; O2SAT 96
[2019-01-10 02:15] VITALS: BP 134/72; PULSE 90; RESP 16; TEMP 36.7; O2SAT 96
[2019-01-10] MEDS: oxyCODONE 5 MG Tablet PO (03:24)
--- NOTE | 2019-01-10 05:55 | RAD_ITS ---
STUDY: X-RAY - ABDOMEN/PELVIS REASON FOR EXAM: Female, 68 years old. Ileus. TECHNIQUE: Two AP supine views of the abdomen and pelvis. COMPARISON: Comparison is made with prior study dated January 08, 2019. FINDINGS: Normal visualized lung bases. There is less gaseous distention of the cecum at this time. It presently measures 9.4 cm. Small amount of gas is now seen in the colon. The visualized liver, spleen and kidneys are grossly normal in size and morphology. Normal soft tissue structures. Normal visualized osseous structures. RAD/Abdomen Single View (Portable) IMPRESSION: Less gaseous distention of the cecum. It presently measures 9.4 cm. Electronically Signed: Ihsan Fuentes, at 9:10 EDT , Service support ,
[2019-01-10 07:05] LABS: Anion Gap 6 (5-15); BUN 3 mg/dL (7-18); BUN/Creat Ratio 6.9 RATIO (10-20); Chloride 102 mmol/L (98-107); Creatinine, Serum 0.44 mg/dL (0.55-1.02); EST Glomerular Filtration Rate 153 mL/min (>60); Est Glom Filt Rate - Afr Amer 185 mL/min (>60); Estimated Creatinine Clearance 41.19 ml/min; Glucose 103 mg/dL (74-106); Potassium 3.5 mmol/L (3.5-5.1); Sodium Level 137 mmol/L (136-145)
[2019-01-10 07:40] VITALS: O2SAT 97
[2019-01-10] MEDS: Polyethylene Glycol 3350 17 GM PACKET 34 GM PO (08:50)
[2019-01-10] MEDS: Bisacodyl 10 MG Suppository RECTAL (08:51)
[2019-01-10] MEDS: Ibuprofen 600 MG Tablet PO (08:51)
[2019-01-10 09:00] VITALS: BP 134/74; PULSE 76; RESP 16; TEMP 36.9; O2SAT 96
--- NOTE | 2019-01-10 09:13 | PCM.PN.SRG ---
Patient Problems: Active and Suspected Problems (Last Reviewed 01/01/19 @ 08:27 by Estefany Mitchell) Hypoxemia (Acute) Subjective: Patient reports that her abdominal pain is improved. She did have some liquid bowel movements yesterday. - Physical Exam General: Alert, Oriented x3 Lungs: Normal air movement Cardiovascular: Regular rate, Regular Rhythm Abdomen: Soft, Tender - Right-sided tenderness Vital Signs Temp Pulse Resp BP Pulse Ox 98.1 F 90 16 134/72 H 97 01/10/19 02:15 01/10/19 02:15 01/10/19 02:15 01/10/19 02:15 01/10/19 07:40 Oxygen Flow Rate (L/min) 2 Oxygen Delivery Method Nasal Cannula Weight: 178 lb 5.663 oz Body Mass Index (BMI) 33.7 Intake and Output for Last 24 Hours 01/08/19 01/09/19 01/10/19 23:59 23:59 23:59 Intake Total 3937 / 3937 1671 / 1671 400 / 400 Balance 3937 / 3937 1671 / 1671 400 / 400 Microbiology Past 72 Hours 01/06/19 17:45 Gram Stain - Final Sputum, Expectorated/Coughed Respiratory Culture - Final Laboratory Tests Past 24 Hrs 01/09/19 01/10/19 06:03 06:15 Sodium 137 Potassium 3.5 Chloride 102 Carbon Dioxide 29.0 Anion Gap 6 BUN 3 L Creatinine 0.44 L Estim Creat Clear Calc 41.19 Est GFR (MDRD) Af Amer 185 Est GFR (MDRD) Non-Af 153 BUN/Creatinine Ratio 6.9 L Glucose 103 Calcium 8.0 L Magnesium 1.8 Medical Necessity - Tobacco Use Smoking Status: Never smoker Tobacco Use: Non-smoker Assessment/Plan All Active Problems (Last Reviewed 01/01/19 @ 08:27 by Estefany Mitchell) Cholelithiasis (Acute) Hypoxemia (Acute) 68-year-old female status post laparoscopy 1. The patient seems to be doing better. I explained that the narcotics are likely causing this constipation which is making her have more pain which is causing her to take more narcotics. On x-ray today the impacted stool seems to be moving distally. The only dilated colon is proximal to the large stool load. She tolerated full liquids and I will continue the full liquids this morning. I will continue cathartics and suppositories. I continue to encourage ambulation. Hopeful for discharge soon once patient is having bowel movements. Ervin Salomon MD Pager: [facility] [address] [place] [address] [address] [place] [address] Office:
[2019-01-10] MEDS: Magnesium Citrate 300 ML PO (11:48)
[2019-01-10] MEDS: Pantoprazole Sodium 40 MG Tablet PO (11:49)
[2019-01-10] MEDS: Enoxaparin 40 MG/0.4 ML Syringe SC (11:50)
[2019-01-10] MEDS: Docusate Sodium 100 MG Capsule PO (11:50)
--- NOTE | 2019-01-10 14:19 | DCINST_ITS ---
Discharge Diet: Light diet - advance as tolerated Discharge Activity: Return to Normal Activity, May Shower Lifting Restrictions: 20 lbs for 2 weeks Additional Activity Instructions:: Pain medication may also cause constipation. If this is a problem for you, please discuss with your doctor. Call your doctor if your incision/area has: Continuous Slow Oozing, Sudden Increased Bleeding, Increased Pain/ Swelling, Increased Redness, Foul Smelling Discharge, Fever of 101 or Higher Call your doctor if you observe: Fever of 101 or Higher Suture Line Care: Avoid Pulling/Pushing, Avoid Pinching/Bending Cleanse incision/area with: Soap & Water Additional Instructions: Take whole bottle of magnesium citrate daily until having regular bowel movements. Allergies/Adverse Reactions: Allergies No Known Allergies Allergy (Verified 01/02/19 10:13) Medications to take at Discharge multivitamin tablet 1 tab PO DAILY 01/01/19 Docusate Sodium [Colace] 100 mg PO BID 10 Days #20 cap 01/10/19 Primary Care Physician: Gabriel Proctor MD [Primary Care Provider] - Test Results: Test results from this visit will be discussed in further detail at your follow- up appointment, if applicable. Please Follow Up With: Ervin Salomon MD When: Please call to schedule 2 week follow up appointment. [phone]
[2019-01-10 15:33] VITALS: BP 132/78; PULSE 80; RESP 18; TEMP 37.1; O2SAT 98
--- NOTE | 2019-01-10 19:13 | DS.PCM_ITS ---
Discharge Date and Diagnosis Date of Admission: 01/02/19 Date of Discharge: 01/10/19 Hospital Course and Treatment Imaging Results: Clinical Impression(s) from Imaging Studies Cholangiogram 01/02/19 11:30 IMPRESSION: Mildly dilated common bile duct. No intraluminal filling defect is seen. Electronically Signed: Ihsan Cornejokam, at 13:46 EDT , Service support , ERCP X-Ray 01/03/19 09:45 IMPRESSION: A filling defect is seen in the distal portion of the common bile duct. Retained calculus should be ruled out. Electronically Signed: Ihsan Palacioszoltan, at 12:26 EDT , Service support , Chest X-Ray 01/04/19 07:09 IMPRESSION: Findings suggestive of bibasilar atelectasis/infiltrates. Follow-up is recommended. Electronically Signed: Ihsan Alfredo, at 11:15 EDT , Service support , Abdomen X-Ray 01/04/19 07:10 IMPRESSION: Gaseous distention of the colon down to the rectum. The cecum measures 12.3 cm in transverse dimension. Electronically Signed: Ihsan Alfredo, at 14:33 EDT , Service support , KUB X-Ray 01/05/19 05:55 IMPRESSION: Intestinal ileus suspected with retained fecal material, not significantly changed since previous exam. Electronically Signed: Nathaly Callahan MD at 7:47 EDT , Service support , KUB X-Ray 01/06/19 05:05 IMPRESSION: Gaseous distended colon without obstruction likely a colonic ileus. Follow is recommended. Electronically Signed: Sb Chicas DO at 15:49 EDT Tel [phone], Service support , KUB X-Ray 01/07/19 05:00 IMPRESSION: Stable bowel gas pattern similar to previous study. No definite sign of obstruction. Electronically Signed: Sb Chicas at 8:56 EDT Tel [phone], Service support , KUB X-Ray 01/08/19 05:55 IMPRESSION: Distended cecum with a transverse dimension of 13.9 cm. Distended colon down to the splenic flexure containing gas and fecal material. Electronically Signed: Ihsan Fuentes, at 10:35 EDT , Service support , KUB X-Ray 01/10/19 05:55 IMPRESSION: Less gaseous distention of the cecum. It presently measures 9.4 cm. Electronically Signed: Ihsan Fuentes, at 9:10 EDT , Service support , Pulmonology Operations: [email or web address], ERCP Procedures: None Summary of Care Provided: The patient is a 68 year old F presented for elective cholecystectomy. During cholecystectomy a common bile duct stone was found. Patient was admitted and the following day she was taken for ERCP and stone removal. After this she developed pancreatitis and postoperative ileus. She also had atelectasis and pulmonology was consulted that she needed an oxygen. After a protracted ileus the patient was finally started on a clear liquid diet and given copious cathartics as she was very constipated. Oxygen was weaned off. When she was having bowel movements and tolerating a regular diet she was discharged home in stable condition. - Physical Exam Vital Signs Temp Pulse Resp BP Pulse Ox 98.8 F 80 18 132/78 H 98 01/10/19 15:33 01/10/19 15:33 01/10/19 15:33 01/10/19 15:33 01/10/19 15:33 Oxygen Flow Rate (L/min) 2 Oxygen Delivery Method Room Air Weight: 178 lb 5.663 oz Body Mass Index (BMI) 33.7 Intake and Output for Last 24 Hours 01/08/19 01/09/19 01/10/19 23:59 23:59 23:59 Intake Total 3937 / 3937 1671 / 1671 1800 / 1800 Balance 3937 / 3937 1671 / 1671 1800 / 1800 Microbiology Past 72 Hours 01/06/19 17:45 Gram Stain - Final Sputum, Expectorated/Coughed Respiratory Culture - Final Laboratory Tests Past 24 Hrs 01/10/19 06:15 Sodium 137 Potassium 3.5 Chloride 102 Carbon Dioxide 29.0 Anion Gap 6 BUN 3 L Creatinine 0.44 L Estim Creat Clear Calc 41.19 Est GFR (MDRD) Af Amer 185 Est GFR (MDRD) Non-Af 153 BUN/Creatinine Ratio 6.9 L Glucose 103 Calcium 8.0 L Discharge Diet: Light diet - advance as tolerated Discharge Activity: Return to Normal Activity, May Shower Additional Activity Instructions:: Pain medication may also cause constipation. If this is a problem for you, please discuss with your doctor. Call your doctor if your incision/area has: Continuous Slow Oozing, Sudden Increased Bleeding, Increased Pain/ Swelling, Increased Redness, Foul Smelling Discharge, Fever of 101 or Higher Call your doctor if you observe: Fever of 101 or Higher Suture Line Care: Avoid Pulling/Pushing, Avoid Pinching/Bending Cleanse incision/area with: Soap & Water Home Medications: Medications to take at Discharge multivitamin tablet 1 tab PO DAILY 01/01/19 Docusate Sodium [Colace] 100 mg PO BID 10 Days #20 cap 01/10/19 Following Prescrptions Were Given to Patient: Docusate Sodium [Colace] 100 mg PO BID 10 Days #20 cap Transmission Status: Received by [facility] Primary Care Physician: Gabriel Proctor MD [Primary Care Provider] - Please Follow Up With: Ervin Salomon MD When: Please call to schedule 2 week follow up appointment. [phone] Additional Instructions: Take whole bottle of magnesium citrate daily until having regular bowel movements. Medical Necessity - Tobacco Use Smoking Status: Never smoker Tobacco Use: Non-smoker Meaningful Use Info Meaningful Use Diagnoses (Choose all that apply): None applicable
== END 2019-01-10 16:18 | disposition home or self-care (01) | DRG 417 ==
LOC: PCU 13:23 → SDC 13:30 → PCU 13:30
PROVIDERS: Anesthesiology; Internal Medicine Critical Care Medicine; Surgery; Admitting Provider Surgery; Referring Provider Surgery; Visit Provider Surgery
PROC: (CPT 47610; principal; 2019-01-02 11:10)
PROC: 0FT44ZZ Resection of Gallbladder, Percutaneous Endoscopic Approach (ICD-10-PCS; CPT 43260; principal; 2019-01-03 09:00)
DX: K80.62 Calculus of gallbladder and bile duct with acute cholecystitis without obstruction (principal); K85.90 Acute pancreatitis without necrosis or infection, unspecified; K91.89 Other postprocedural complications and disorders of digestive system; K56.7 Ileus, unspecified; J98.11 Atelectasis; R09.02 Hypoxemia; E87.6 Hypokalemia; R06.89 Other abnormalities of breathing; K42.9 Umbilical hernia without obstruction or gangrene; Y84.8 Other medical procedures as the cause of abnormal reaction of the patient, or of later complication, without mention of misadventure at the time of the procedure
CPT/HCPCS: 36415; 71046; 74018; 74019; 74300; 74328; 76000; 80048; 80053; 80076; 81001; 83690; 83735; 83880; 84132; 85025; 85027; 85610; 85730; 87070; 87205; 88304; 88305; 93005; 93306; J7030; J7040; J7050; J7120; Q9957; A4216; C8929; J1610; J2405

== ENCOUNTER → 2019-01-17 09:07 | Outpatient (CLI) | payer SELFPAY ==
[2019-01-03 08:11] VITALS: BMI 33.7
--- NOTE | 2019-01-17 09:10 | RAD_ITS ---
STUDY: X-RAY - ABDOMEN/PELVIS REASON FOR EXAM: Female, 69 years old. Pain in abdomen TECHNIQUE: 4 views COMPARISON: None. FINDINGS: Normal visualized lung bases. There is an unremarkable and nonobstructed small bowel gas pattern. There is no demonstrated free abdominal air. The visualized liver, spleen and kidneys are grossly normal in size and morphology. There are calcified phleboliths in the pelvis. There are diffuse degenerative changes of the visualized lumbar spine. Bilateral osteitis condensans ilii RAD/Abd Inc Decub and/or Erect IMPRESSION: Overall nonobstructive bowel gas pattern. No gross subdiaphragmatic free air. Bilateral osteitis condensans ilii. Electronically Signed: Charles Milligan MD at 14:47 EDT Tel [phone], Service support ,
== END ==
PROVIDERS: Referring Provider Surgery; Visit Provider Surgery
DX: R10.9 Unspecified abdominal pain (principal)
CPT/HCPCS: 74019

== ENCOUNTER → 2019-01-17 10:36 | Outpatient (CLI) | payer SELFPAY ==
[2019-01-03 08:11] VITALS: BMI 33.7
--- NOTE | 2019-01-17 10:38 | VDLE_ITS ---
Reason For Study: PAIN RIGHT LEFT CFV is compressible, spontaneous, phasic, CFV is compressible, spontaneous, phasic, competent and demonstrates normal competent, and demonstrates normal augmentation. augmentation. Procedure PTV is compressible. Exam performed in department. LT PerV is compressible. A preliminary report was called and/or faxed Left SFJ is compressible and competent with to Dr Salomon. dampened doppler signal. Left FV is compressible and competent with dapened doppler signal. Left PopV is compressible and competent with dampened doppler signal. Left T/P Trunk is compressible. Left GSV is dilated and NONCOMPRESSIBLE from just below SFJ to knee. Doppler signals are dampened throughout due to Rouleaux flow. Interpretation Summary Deep veins of the left lower extremity are patent and compressible segmentally. There is no evidence of left lower extremity deep vein thrombosis. Valvular competence appears intact within the proximal deep venous system on the left . Acute superficial thrombophlebitis is noted in the left great saphenous vein from just distal to the left sapheno-femoral junction to the knee. Dampened venous Doppler signals and Rouleaux flow are noted in the left lower extremity deep venous system, which may be indicative of a venous outflow stenosis or obstruction. Clinical correlation is advised. Ordering Physician: Ervin Salomon Referring Physician: MAURO MALIN Performed By: Sandy Marquez, JOHNSON, RVT
== END ==
PROVIDERS: Referring Provider Surgery; Visit Provider Surgery
DX: M79.605 Pain in left leg (principal)
CPT/HCPCS: 93971

== ENCOUNTER 2019-01-19 13:24 | Inpatient (IN) | payer SELFPAY ==
[2019-01-03 08:11] VITALS: BMI 33.7
[2019-01-19] VITALS (31 sets, daily range): BP systolic 110–158; BP diastolic 64–112; PULSE 94–123; RESP 16–42; TEMP 37.2–38.7; O2SAT 85–100; BMI 30.6; BMI 30.8
[2019-01-19] MEDS: Lactated Ringers 1,000 ML 100 ML IV ×2 (08:54→13:08)
--- NOTE | 2019-01-19 10:16 | PCM.HP.STD ---
Problem List (1) Constipation Status: Acute History of Present Illness Date of Admission: 01/19/19 The patient is a 69 year old F who had complicated hospital stay recently. She had cholecystectomy with subsequent ERCP and then pancreatitis with ileus. She had a prolonged course and severe constipation after surgery. She still reports that she is only passing liquid stool and has not passed any solid stool despite multiple cathartics. She says she has upper abdominal pain and feels like things are being pushed upward. Past Medical History Medical History: Medical History (Last Reviewed 01/01/19 @ 08:27 by Estefany Mitchell) Gallstones K80.20 Normal colonoscopy Allergies No Known Allergies Allergy (Verified 01/19/19 08:35) Home Medications: Ambulatory Orders Medication Instructions Recorded multivitamin tablet 1 tab PO DAILY 01/01/19 L.acidoph,Paracasei, B.lactis 1 ea PO DAILY 01/18/19 [Probiotic] Surgical History: Surgical History (Last Reviewed 01/01/19 @ 08:27 by Estefany Mitchell) S/P tonsillectomy Z90.89 Surgical History: cholecystectomy Smoking Status: Never smoker Tobacco Use: Non-smoker - *Family History Maternal Family History: Family History (Last Reviewed 01/01/19 @ 08:27 by Estefany Mitchell) Sister Cancer Review of Systems Constitutional: Denies: Anorexia, Chills, Fever HEENT: Denies: Difficulty Swallowing Cardiovascular: Denies: Chest Pain Respiratory: Denies: Cough, Shortness of Breath Gastrointestinal: Reports: Abdominal Pain, Constipation. Denies: Nausea, Vomiting Genitourinary: Denies: Dysuria Musculoskeletal: Denies: Back Pain Skin: Denies: Dryness, Jaundice Neurological: Denies: Balance problems Psychiatric: Denies: Anxiety Hematologic/ Lymphatic: Denies: Anemia VTE Information - Inpt Only VTE Present on Admission: No VTE Mechan Device Prophylaxis: SCD's Patient Problems: Active and Suspected Problems (Last Reviewed 01/01/19 @ 08:27 by Estefany Mitchell) Constipation (Acute) - Physical Exam General: Alert, Oriented x3 Neck: No JVD Lungs: Normal air movement Cardiovascular: Regular rate, Regular Rhythm Abdomen: Soft, Non-Distended, Tender - Tender in the epigastric region Vital Signs Temp Pulse Resp BP Pulse Ox 99.3 F H 104 H 18 143/69 H 94 01/19/19 08:37 08/23/19 08:37 01/19/19 08:37 01/19/19 08:37 01/19/19 08:37 Oxygen Delivery Method Room Air Weight: 167 lb 8.821 oz Body Mass Index (BMI) 30.6 Assessment/Plan All Active Problems (Last Reviewed 01/01/19 @ 08:27 by Estefany Mitchell) Cholelithiasis (Acute) Hypoxemia (Acute) Constipation (Acute) 69-year-old female with severe constipation 1. Patient reports that despite multiple cathartics she was unable to have a solid bowel movement after surgery. X-rays show a heavy stool load in the colon. I had a KUB done earlier this week which showed a heavy stool load in the right upper quadrant. This coincides with her pain. I am concerned for possible obstructing mass in the transverse colon. She had a lot of stool in her colon on initial CT in the beginning of December and she had a heavy stool load on that side during her hospitalization. It is possible that her right upper quadrant pain was not due to her gallbladder and possibly due to constipation and possibly an obstructing or near obstructing mass. I would like to proceed with colonoscopy today to rule out out. I explained endoscopy in detail to the patient. I explained the risks including but not limited to stroke or heart attack with anesthesia, perforation of the GI tract, bleeding, infection. I explained that any of these could necessitate further emergency surgery. The patient understands and all questions were answered sufficiently. The patient wishes to proceed with procedure. Ervin Salomon MD Pager: [facility] [address] [place] [address] [address] [place] [address] Office:
--- NOTE | 2019-01-19 11:02 | OP.ENDO_ITS ---
01/19/2019 Gabriel Proctor Re : Colonoscopy procedure for Ruthie Ayon Dear Esthela This procedure was performed on Saturday, January 19, 2019. My impressions and recommendations are as follows: Impressions : - The entire examined colon is normal on direct and retroflexion views. - No specimens collected. Recommendations : - Discharge patient to home. - Resume previous diet. - Use Prilosec (omeprazole) 20 mg PO daily for 2 months. - No repeat colonoscopy due to current age (66 years or older). - Continue present medications. My findings are described in the full procedure note, which is enclosed. If I can be of further assistance, please feel free to contact me at Doctor phone number(s): , Work: . Sincerely, Ervin Salomon MD 01/19/2019 11:01:46 AM This report has been signed electronically.
[2019-01-19] MEDS: Ipratropium/Albuterol Sulfate 3 ML AMPUL.NEB INHALATION ×2 (12:02→19:04)
[2019-01-19 12:09] LABS: Absolute Lymphocyte Count 0.88 X10^3/uL (0.83-4.51); Basophil# 0.02 X10^3/uL; Basophil% 0.1 % (0-1); Hematocrit 35.9 % (37-47); Lymphocyte # 0.88 X10^3/ul (4.0); Lymphocyte % 6.6 % (19-41); Mean Corp Hgb Conc 33.4 g/dL (32-36); Mean Corpuscular Hgb 31.1 pg (27.0-32.0); Mean Platelet Vol. 8.2 fl (6.2-12.0); Monocyte# 0.41 X10^3/uL; Monocyte% 3.1 % (0-10); NRBC Flagged by Analyzer 0 % (0-5); Neutrophil # 12.02 X10^3/uL (2.7-7.7); Neutrophil % 89.6 % (47-70); POSITIVE MORPHOLOGY YES; Platelet Count 367 K/mm3 (150-450); RBC Distribution Width CV 13.2 % (11.6-14.6); RBC Distribution Width SD 45.2 fl (35.1-43.9); Red Blood Count 3.86 M/mm3 (4.2-5.4); White Blood Count 13.4 K/mm3 (4.4-11.0)
[2019-01-19 12:13] LABS: Differential Indicated SCAN CRITERIA MET
--- NOTE | 2019-01-19 12:17 | CT_ITS ---
STUDY: CT ABDOMEN AND PELVIS WITH CONTRAST REASON FOR EXAM: Female, [address] abdomen pelvis December 28, 2018 RADIATION DOSAGE (If Supplied By Facility): DLP = ( 1103.89 ) mGycm TECHNIQUE: Transaxial images were obtained from the dome of the diaphragm to the symphysis pubis with oral contrast. 100ML ml of Isovue 300 contrast was administered. Sagittal and coronal images were reconstructed. Individualized dose optimization techniques were used for this CT. COMPARISON: None. FINDINGS: There is a left lung base infiltrate. The right lung base is clear. The visualized portions of the heart and pericardium are within normal limits. There are no calcified gallstones present. The liver is within normal limits. There are no suspicious hepatic lesions. The spleen is normal in size. There is prominent peripancreatic fluid with areas of early-appearing loculation. There is prominent fluid within the right hemiabdomen with an appearance of developing loculation. No focal pancreatic lesions are present, although prominence of adjacent pancreatic fluid limits assessment. The adrenal glands are within normal limits. There are no obstructing renal stones. There is no hydronephrosis. There are no focal renal lesions. Normal visualized stomach. There is thickening of the proximal duodenum adjacent to the pancreas. There is focal colonic wall thickening at the hepatic fracture. Colonic diverticulosis is present. The aorta is normal in caliber. Several mildly prominent lymph nodes are present in the upper abdomen. There is no free air. There are no destructive osseous lesions. CT/Abdomen/Pelvis WITH Contrast IMPRESSION: Prominent peripancreatic fluid with areas of early-appearing loculation as well as prominent fluid along the right hemiabdomen with early-appearing loculation. Findings suggest developing pseudocysts with reported history of recent pancreatitis. While necrotic pancreatitis is a consideration, no definite evidence of acute is evident. Duodenal inflammation is likely reactive and less likely primary. Focal colonic wall thickening at the hepatic flexure, which may be reactive or chronic. Left lung base infiltrate. Short-term follow-up and clinical correlation is suggested for the above findings. Electronically Signed: Juan M Dutta, at 19:22 EDT Tel , Service support ,
[2019-01-19 12:23] LABS: ALB/GLOB Ratio 0.7 RATIO (0.9-2.4); AST(SGOT) 30 U/L (15-37); Alanine Aminotransfer ALT/SGPT 29 U/L (13-56); Albumin, Serum 2.7 g/dL (3.2-5.0); Alkaline Phosphatase 75 U/L (45-117); Anion Gap 11 (5-15); BUN 7 mg/dL (7-18); BUN/Creat Ratio 10.4 RATIO (10-20); Calcium,Total 8.4 mg/dL (8.5-10.1); Chloride 102 mmol/L (98-107); Creatinine, Serum 0.67 mg/dL (0.55-1.02); EST Glomerular Filtration Rate 92 mL/min (>60); Est Glom Filt Rate - Afr Amer 112 mL/min (>60); Estimated Creatinine Clearance 42.59 ml/min; Globulin 3.8 g/dL (2.2-4.2); Glucose 106 mg/dL (74-106); Potassium 3.5 mmol/L (3.5-5.1); Protein, Total 6.5 g/dL (6.4-8.2); Sodium Level 138 mmol/L (136-145)
--- NOTE | 2019-01-19 12:31 | PCM.PN.BLA ---
Progress Note I performed a colonoscopy on the patient which showed no stool or stricture or mass. Given the fact that she has no fecal burden and she is still complaining of epigastric pain I would like to investigate further. After endoscopy she is not able to maintain good oxygen saturation on room air. I checked CBC and CMP. CMP is normal. CBC shows elevated white count with left shift. She is also tachycardic. This is similar to what happened after the last anesthesia. I will admit her to the PCU and check CT of the abdomen and pelvis. Ervin Salomon MD Pager: [facility] [address] [place] [address], [address] [place] [address] Office:
[2019-01-19] MEDS: 0.9% Normal Saline 1,000 ML 100 ML IV (13:34)
[2019-01-19] MEDS: Piperacil/Tazobactam 3.375 GM/50 ML ML IV ×2 (15:31→22:13)
[2019-01-19] MEDS: 0.9% NaCl Peripheral Flush Adult/Peds IV ×2 (18:38→20:06)
[2019-01-20] VITALS (21 sets, daily range): BP systolic 113–140; BP diastolic 50–85; PULSE 83–119; RESP 16–28; TEMP 36.8–38; O2SAT 88–98
[2019-01-20] MEDS: 0.9% Normal Saline 1,000 ML 100 ML IV ×2 (00:39→10:45)
[2019-01-20] MEDS: Acetaminophen 325 MG Tablet 650 MG PO ×3 (03:54→21:25)
[2019-01-20] MEDS: Piperacil/Tazobactam 3.375 GM/50 ML ML IV ×3 (06:15→21:25)
[2019-01-20 06:42] LABS: Absolute Lymphocyte Count 0.62 X10^3/uL (0.83-4.51); Absolute Neutrophil Count 10.3 X10^3/uL (2.0-7.7); Basophil# 0.02 X10^3/uL; Basophil% 0.2 % (0-1); Eosinophil# 0.02 X10^3/uL; Eosinophils% 0.2 % (0-5); Hematocrit 31.7 % (37-47); Hemoglobin 10.4 g/dL (12.0-15.0); Lymphocyte # 0.62 X10^3/ul (4.0); Lymphocyte % 5.4 % (19-41); Mean Corp Hgb Conc 32.8 g/dL (32-36); Mean Corpuscular Hgb 30.3 pg (27.0-32.0); Mean Corpuscular Volume 92.4 fL (81-99); Mean Platelet Vol. 8.6 fl (6.2-12.0); Monocyte# 0.55 X10^3/uL; Monocyte% 4.8 % (0-10); NRBC Flagged by Analyzer 0 % (0-5); Neutrophil % 89.1 % (47-70); Platelet Count 308 K/mm3 (150-450); RBC Distribution Width CV 13.4 % (11.6-14.6); Red Blood Count 3.43 M/mm3 (4.2-5.4); White Blood Count 11.6 K/mm3 (4.4-11.0)
[2019-01-20] MEDS: Ipratropium/Albuterol Sulfate 3 ML AMPUL.NEB INHALATION ×4 (07:01→18:59)
[2019-01-20 07:04] LABS: Anion Gap 10 (5-15); BUN 4 mg/dL (7-18); BUN/Creat Ratio 6.8 RATIO (10-20); Calcium,Total 8.1 mg/dL (8.5-10.1); Chloride 107 mmol/L (98-107); Creatinine, Serum 0.59 mg/dL (0.55-1.02); EST Glomerular Filtration Rate 108 mL/min (>60); Est Glom Filt Rate - Afr Amer 130 mL/min (>60); Estimated Creatinine Clearance 40.63 ml/min; Glucose 105 mg/dL (74-106); Lipase 357 U/L (73-393); Potassium 3.5 mmol/L (3.5-5.1); Sodium Level 142 mmol/L (136-145)
--- NOTE | 2019-01-20 07:34 | CPS ---
PT DECREASED TO 2 LPM...SAT 95%. NURSE AWARE OF CHANGE
--- NOTE | 2019-01-20 09:01 | PCM.PN.SRG ---
Patient Problems: Active and Suspected Problems (Last Reviewed 01/01/19 @ 08:27 by Estefany Mitchell) Constipation (Acute) Subjective: Patient reports the same continue pain she is been having. No nausea or vomiting overnight. - Physical Exam General: Alert, Oriented x3 Lungs: Normal air movement Cardiovascular: Regular rate Abdomen: Soft, Non-Distended, Tender Vital Signs Temp Pulse Resp BP Pulse Ox 98.2 F 84 16 121/50 H 98 01/20/19 06:00 01/20/19 07:01 01/20/19 07:01 01/20/19 06:00 01/20/19 07:01 Oxygen Flow Rate (L/min) 4 Oxygen Delivery Method Nasal Cannula Weight: 167 lb 8.821 oz Body Mass Index (BMI) 30.8 Intake and Output for Last 24 Hours 01/18/19 01/19/19 01/20/19 23:59 23:59 23:59 Intake Total 2126.67 / 2606.67 1228.33 / 1228.33 Balance 2126.67 / 2606.67 1228.33 / 1228.33 Laboratory Tests Past 24 Hrs 01/19/19 01/19/19 01/20/19 11:53 11:53 05:35 WBC 13.4 H 11.6 H RBC 3.86 L 3.43 L Hgb 12.0 10.4 L Hct 35.9 L 31.7 L MCV 93.0 92.4 MCH 31.1 30.3 MCHC 33.4 32.8 RDW Std Deviation 45.2 H 45.0 H RDW Coeff of Yessi 13.2 13.4 Plt Count 367 308 MPV 8.2 8.6 Immature Gran % (Auto) 0.600 0.300 Neut % (Auto) 89.6 H 89.1 H Lymph % (Auto) 6.6 L 5.4 L [place] % (Auto) 3.1 4.8 Eos % (Auto) 0.0 0.2 Baso % (Auto) 0.1 0.2 Absolute Neuts (auto) 12.0 H 10.3 H Absolute Lymphs (auto) 0.88 0.62 L Nucleated RBC % 0 0 Sodium 138 Potassium 3.5 Chloride 102 Carbon Dioxide 25.0 Anion Gap 11 BUN 7 Creatinine 0.67 Estim Creat Clear Calc 42.59 Est GFR (MDRD) Af Amer 112 Est GFR (MDRD) Non-Af 92 BUN/Creatinine Ratio 10.4 Glucose 106 Calcium 8.4 L Total Bilirubin 0.50 AST 30 ALT 29 Alkaline Phosphatase 75 Total Protein 6.5 Albumin 2.7 L Globulin 3.8 Albumin/Globulin Ratio 0.7 L Lipase 01/20/19 05:35 WBC RBC Hgb Hct MCV MCH MCHC RDW Std Deviation RDW Coeff of Yessi Plt Count MPV Immature Gran % (Auto) Neut % (Auto) Lymph % (Auto) [place] % (Auto) Eos % (Auto) Baso % (Auto) Absolute Neuts (auto) Absolute Lymphs (auto) Nucleated RBC % Sodium 142 Potassium 3.5 Chloride 107 Carbon Dioxide 25.0 Anion Gap 10 BUN 4 L Creatinine 0.59 Estim Creat Clear Calc 40.63 Est GFR (MDRD) Af Amer 130 Est GFR (MDRD) Non-Af 108 BUN/Creatinine Ratio 6.8 L Glucose 105 Calcium 8.1 L Total Bilirubin AST ALT Alkaline Phosphatase Total Protein Albumin Globulin Albumin/Globulin Ratio Lipase 357 Medical Necessity - Tobacco Use Smoking Status: Never smoker Tobacco Use: Non-smoker Assessment/Plan All Active Problems (Last Reviewed 01/01/19 @ 08:27 by Estefany Mitchell) Cholelithiasis (Acute) Hypoxemia (Acute) Constipation (Acute) 69-year-old female with ongoing inflammation from pancreatitis 1. Patient had colonoscopy yesterday which revealed no obstructing mass. She did have some aspiration during this procedure. She has been on 4 L of nasal cannula but this will be weaned down today. 2. Patient had subsequent CAT scan which showed a large amount of inflammation around the pancreas extending into the right retroperitoneum which is likely sequelae from recent pancreatitis. I ordered a lipase this morning which was normal. I explained that she needs to get nutrition while there is inflammation subsides and possibly coalesces into pseudocysts. At this time there is no sign of infection of these areas. I will start her on a full liquid diet with Ensure and have dietary check her caloric intake. If she is able to maintain caloric intake using full liquids then she can be discharged on full liquids once her oxygenation status improves. If she is unable to keep caloric intake she may need home TPN. Patient refused CorPak placement. Ervin Salomon MD Pager: [facility] [address] [place] [address] Office:
[2019-01-20] MEDS: Pantoprazole Sodium 40 MG Tablet PO (09:58)
[2019-01-20] MEDS: Enoxaparin 40 MG/0.4 ML Syringe SC (09:59)
[2019-01-20] MEDS: 0.9% NaCl Peripheral Flush Adult/Peds IV ×2 (19:10→23:22)
[2019-01-20] MEDS: Furosemide 20 MG/2 ML VIAL IV (19:10)
[2019-01-20] MEDS: Calcium Carbonate 500 MG Tablet 1000 MG PO (21:25)
--- NOTE | 2019-01-20 21:38 | RAD_ITS ---
HISTORY: INCREASING SOB, COURSE CRACKLES THROUGHOUT LEFT EXAM: XR Chest 2 Views: COMPARISON: January 04, 2019 FINDINGS: # of images incl. paperwork: 2 Basilar lung disease, left greater than right and in the right middle lobe is similar to the previous study, accounting for differences in technique Heart is not enlarged. Bones are normal. Pulmonary vascularity is indistinct. No effusions. RAD/Chest PA and Lateral IMPRESSION: Persistent bilateral airspace disease, perhaps greatest in the left lower lobe and the right middle lobe. The distribution and the severity is similar accounting for differences in technique. at 2328 Reported and signed by: Jonathon Phillips MD Electronically Signed: Jonathon Phillips MD at 23:27 EDT Tel , Service support ,
--- NOTE | 2019-01-20 22:04 | NURSING ---
Dr Sim called - advised Dr of pt history and recent events.
--- NOTE | 2019-01-20 22:22 | CON.PCM_ITS ---
Problem List (1) Aspiration pneumonia Status: Acute (2) Acute bronchitis Status: Acute Reason for Consult Date of Consultation: 01/20/19 Reason for Consultation: shortness of breath with increased work of breathing History of Present Illness: The patient is a 69 year old F who was admitted about 3 weeks ago for cholecystectomy and follow-up ERCP who subsequently developed pancreatitis and ileus and had a colonoscopy today (01/20/2019) with shortness of breath and increased work of breathing. Reportedly after colonoscopy patient vomited and aspirated. Patient was started on Zosyn. Patient was on 4 L of oxygen but her oxygen requirement actually decreased to 2 L earlier in the day. 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 Internal medicine was consulted to help manage patient shortness of breath and increase work of breathing. At bedside evaluation patient confirmed shortness of breath. She also reports epigastric pain and a feeling of heartburn. She feels some pushing on her epigastric region; and is for this reason that she had a colonoscopy. The Colonoscopy was unremarkable. Follow-up CT of the abdomen showed prominent pancreatic fluids and finding suggesting pseudocyst. Reportedly on previous admission post surgery patient had the same symptoms of shortness of breath. Past Medical History Medical History: Medical History (Last Reviewed 01/20/19 @ 22:54 by Isaiah Sim MD) Gallstones K80.20 Normal colonoscopy Allergies No Known Allergies Allergy (Verified 01/19/19 08:35) Home Medications: Ambulatory Orders Medication Instructions Recorded multivitamin tablet 1 tab PO DAILY 01/01/19 L.acidoph,Paracasei, B.lactis 1 ea PO DAILY 01/18/19 [Probiotic] Omeprazole 20 mg PO DAILY 60 Days #60 01/19/19 tablet. Surgical History: Surgical History (Last Reviewed 01/01/19 @ 08:27 by Estefany Mitchell) S/P tonsillectomy Z90.89 Surgical History: cholecystectomy Lives: With Family Smoking Status: Never smoker Tobacco Use: Non-smoker - *Family History Maternal Family History: Family History (Last Reviewed 01/20/19 @ 22:55 by Isaiah Sim MD) Sister Cancer Review of Systems Constitutional: Denies: Chills, Fever, Weight Change HEENT: Denies: Head Aches, Sinus Congestion, Sinus Drainage Cardiovascular: Denies: Chest Pain, Palpitations Respiratory: Reports: Cough, Shortness of Breath, Sputum production - Greenish Gastrointestinal: Reports: Abdominal Pain. Denies: Nausea, Vomiting Genitourinary: Denies: Dysuria Musculoskeletal: Denies: Joint Pain, Joint Tenderness Skin: Denies: Rash, Wounds Neurological: Denies: Numbness, Tingling, Focal weakness Psychiatric: Denies: Anxiety, Depression, Homicidal Ideations, Suicidal Ideations Hematologic/ Lymphatic: Denies: Easy Bruising, Easy Bleeding Patient Problems: Active and Suspected Problems (Last Reviewed 01/20/19 @ 22:54 by Isaiah Sim MD) Constipation (Acute) Aspiration pneumonia (Acute) Acute bronchitis (Acute) - Physical Exam General: Alert, Oriented x3, Cooperative HEENT: Atraumatic, PERRLA, EOMI, Normocephalic Neck: Supple, No JVD, Negative Carotid Bruits Lungs: Tachypneic, Using Accessory Muscles, Wheezes Cardiovascular: No murmurs, Tachycardic Abdomen: Soft, Tender Extremities: No edema, Capillary Refill Less than 3 Seconds Skin: No rashes, No breakdown Musculoskeletal: No Tenderness to Palpation of Joints or Extremities Neurological: Cranial nerves II-XII grossly intact Psych/Mental Status: Normal Affect, Appropriate Vital Signs Temp Pulse Resp BP Pulse Ox 100 F H 109 H 28 H 136/72 H 97 01/20/19 22:18 01/20/19 22:18 01/20/19 22:18 01/20/19 22:18 01/20/19 22:18 Oxygen Flow Rate (L/min) 5 Oxygen Delivery Method Nasal Cannula Weight: 76 kg Body Mass Index (BMI) 30.8 Intake and Output for Last 24 Hours 01/18/19 01/19/19 01/20/19 23:59 23:59 23:59 Intake Total 2126.67 / 2606.67 4036.87 / 4036.87 Balance 2126.67 / 2606.67 4036.87 / 4036.87 Laboratory Tests Past 24 Hrs 01/20/19 01/20/19 05:35 05:35 WBC 11.6 H RBC 3.43 L Hgb 10.4 L Hct 31.7 L MCV 92.4 MCH 30.3 MCHC 32.8 RDW Std Deviation 45.0 H RDW Coeff of Yessi 13.4 Plt Count 308 MPV 8.6 Immature Gran % (Auto) 0.300 Neut % (Auto) 89.1 H Lymph % (Auto) 5.4 L [place] % (Auto) 4.8 Eos % (Auto) 0.2 Baso % (Auto) 0.2 Absolute Neuts (auto) 10.3 H Absolute Lymphs (auto) 0.62 L Nucleated RBC % 0 Sodium 142 Potassium 3.5 Chloride 107 Carbon Dioxide 25.0 Anion Gap 10 BUN 4 L Creatinine 0.59 Estim Creat Clear Calc 40.63 Est GFR (MDRD) Af Amer 130 Est GFR (MDRD) Non-Af 108 BUN/Creatinine Ratio 6.8 L Glucose 105 Calcium 8.1 L Lipase 357 Assessment/Plan All Active Problems (Last Reviewed 01/20/19 @ 22:54 by Isaiah Sim MD) Cholelithiasis (Acute) Hypoxemia (Acute) Constipation (Acute) Aspiration pneumonia (Acute) Acute bronchitis (Acute) The patient is a 69 year old F who was admitted about 3 weeks ago for cholecystectomy and follow-up ERCP who subsequently developed pancreatitis and ileus and had a colonoscopy today (01/20/2019) with shortness of breath and increased work of breathing after colonoscopy consistent with acute bronchitis; and probable sepsis secondary to aspiration pneumonia.. Probable sepsis second aspiration pneumonia Patient with tachycardia with heart rate in the 110s. And respiratory rate respiratory rate as high as 28. At the time of examination on 5 L patient was 97 to 98%. Her oxygen by nasal cannula was reduced to 2 L she was sating around 93%.. Continue oxygen by nasal cannula to maintain oxygen saturation more than 92%. Continue Zosyn Chest x-ray interpreted by me showed left lower opacity. Await for official radiologist interpretation. Check MRSA of the nares Check CBC and BMP Acute bronchitis Patient with wheezes on examination Solu-Medrol 125 mg x 1 ordered. Continue DuoNeb PRN albuterol added Prednisone 40 mg daily ordered Reportedly patient was tried on BiPAP but could not tolerate. It appears that patient could hold off BiPAP at this time. Echocardiogram this month did not show any diastolic or systolic dysfunction. Pancreatitis If official chest x-ray reading is unremarkable consider resuming IV fluids. Will check lipase. DVT Prophylaxis On Lovenox. Code Visit Inpatient E&M: 74422 Subs Hosp L3
[2019-01-20 23:21] LABS: Allen Test POS; Base Excess 5 mmol/L (-2 to +2); Bicarbonate 28.3 mmol/L (22-26); Blood Gas Specimen Type ART; O2 Delivery Device Nasal Can; PO2 80 mmHG (75-100); SITE L Radial; SO2 97 % (95-99); Time Given 2303; Total Carbon Dioxide 29 mmol/L; pH 7.47 (7.35-7.45)
[2019-01-20] MEDS: MethylPREDNISolone 125 MG/2 ML Vial IV (23:22)
[2019-01-20 23:53] LABS: BUN 5 mg/dL (7-18); Creatinine, Serum 0.67 mg/dL (0.55-1.02); EST Glomerular Filtration Rate 93 mL/min (>60); Estimated Creatinine Clearance 42.59 ml/min; Glucose 145 mg/dL (74-106)
[2019-01-20 23:54] LABS: Anion Gap 7 (5-15); BUN/Creat Ratio 7.5 RATIO (10-20); Calcium,Total 8.3 mg/dL (8.5-10.1); Chloride 102 mmol/L (98-107); Est Glom Filt Rate - Afr Amer 113 mL/min (>60); Potassium 2.9 mmol/L (3.5-5.1); Sodium Level 138 mmol/L (136-145)
[2019-01-20 23:57] LABS: Lactic Acid 1.1 mmol/L (0.4-2.0)
[2019-01-21] VITALS (18 sets, daily range): BP systolic 113–138; BP diastolic 56–78; PULSE 77–114; RESP 16–24; TEMP 36.6–37; O2SAT 91–97
[2019-01-21 00:48] LABS: Hematocrit 31.7 % (37-47); Hemoglobin 10.5 g/dL (12.0-15.0); Mean Corp Hgb Conc 33.1 g/dL (32-36); Mean Corpuscular Hgb 30.5 pg (27.0-32.0); Mean Corpuscular Volume 92.2 fL (81-99); Mean Platelet Vol. 8.8 fl (6.2-12.0); Platelet Count 355 K/mm3 (150-450); RBC Distribution Width CV 13.4 % (11.6-14.6); RBC Distribution Width SD 45.1 fl (35.1-43.9); Red Blood Count 3.44 M/mm3 (4.2-5.4)
[2019-01-21 01:01] LABS: Magnesium 1.7 mg/dL (1.6-2.6); Phosphorus 2.6 mg/dL (2.5-4.9)
[2019-01-21] MEDS: Potassium Chloride 10mEq/100mL 10 MEQ/100 ML IV.SOLN. 100 MEQ IV BOLUS ×3 (01:25→06:35)
[2019-01-21] MEDS: 0.9% NaCl Peripheral Flush Adult/Peds IV ×2 (01:51→04:40)
[2019-01-21 02:51] LABS: M R Staph aureus DNA By PCR Negative (Negative); Probe Check PASS; Specimen Processing Control PASS
[2019-01-21] MEDS: Potassium Chloride 10mEq/100mL 10 MEQ/100 ML IV.SOLN. 50 MEQ IV BOLUS (03:27)
[2019-01-21 05:12] LABS: Absolute Lymphocyte Count 0.32 X10^3/uL (0.83-4.51); Absolute Neutrophil Count 10.1 X10^3/uL (2.0-7.7); Basophil# 0.01 X10^3/uL; Basophil% 0.1 % (0-1); Eosinophil# 0.01 X10^3/uL; Eosinophils% 0.1 % (0-5); Hematocrit 35.8 % (37-47); Hemoglobin 11.6 g/dL (12.0-15.0); Lymphocyte # 0.32 X10^3/ul (4.0); Mean Corp Hgb Conc 32.4 g/dL (32-36); Mean Corpuscular Hgb 29.9 pg (27.0-32.0); Mean Corpuscular Volume 92.3 fL (81-99); Mean Platelet Vol. 8.5 fl (6.2-12.0); Monocyte# 0.11 X10^3/uL; NRBC Flagged by Analyzer 0 % (0-5); Neutrophil # 10.13 X10^3/uL (2.7-7.7); Neutrophil % 95.3 % (47-70); POSITIVE DIFFERENTIAL YES; Platelet Count 351 K/mm3 (150-450); RBC Distribution Width CV 13.2 % (11.6-14.6); RBC Distribution Width SD 44.9 fl (35.1-43.9); Red Blood Count 3.88 M/mm3 (4.2-5.4); White Blood Count 10.6 K/mm3 (4.4-11.0)
[2019-01-21 05:24] LABS: Differential Indicated SCAN CRITERIA MET
[2019-01-21] MEDS: Piperacil/Tazobactam 3.375 GM/50 ML ML IV ×3 (05:28→21:42)
[2019-01-21 05:44] LABS: Anion Gap 6 (5-15); BUN 4 mg/dL (7-18); BUN/Creat Ratio 7.5 RATIO (10-20); Calcium,Total 8.9 mg/dL (8.5-10.1); Chloride 105 mmol/L (98-107); Creatinine, Serum 0.54 mg/dL (0.55-1.02); EST Glomerular Filtration Rate 120 mL/min (>60); Est Glom Filt Rate - Afr Amer 146 mL/min (>60); Estimated Creatinine Clearance 42.59 ml/min; Glucose 154 mg/dL (74-106); Lipase 435 U/L (73-393); Potassium 5.4 mmol/L (3.5-5.1); Sodium Level 138 mmol/L (136-145)
[2019-01-21] MEDS: Ipratropium/Albuterol Sulfate 3 ML AMPUL.NEB INHALATION ×4 (07:08→19:11)
--- NOTE | 2019-01-21 08:24 | RAD_ITS ---
STUDY: X-RAY CHEST REASON FOR EXAM: Female, 69 years old. Shortness of breath. TECHNIQUE: PA and lateral views of the chest. COMPARISON: 01/20/2017. FINDINGS: There is improved infiltrate in the left lower lung and right upper lobe with probable underlying chronic changes. There is no demonstrated pleural abnormality. Normal size heart. Normal mediastinum and bon. Normal visualized pulmonary arteries. There is atherosclerotic tortuosity of the aortic arch and descending thoracic aorta. There are diffuse degenerative changes of the visualized thoracic spine. There are degenerative changes in right shoulder. There is no demonstrated abnormality of the visualized soft tissue structures of the upper abdomen. RAD/Chest PA and Lateral IMPRESSION: Improved bilateral infiltrates. Electronically Signed: Frank Hammer MD at 11:14 EDT Tel , Service support ,
--- NOTE | 2019-01-21 08:54 | PN.SURG_ITS ---
Patient Problems: Active and Suspected Problems (Last Reviewed 01/20/19 @ 22:54 by Isaiah Sim MD) Constipation (Acute) Aspiration pneumonia (Acute) Acute bronchitis (Acute) Subjective: Patient had episode of shortness of breath yesterday accompanied by increasing oxygen requirements. - Physical Exam General: Alert, Oriented x3 Lungs: Wheezes Cardiovascular: Regular rate, Regular Rhythm Abdomen: Soft, Non-Distended, Tender - Epigastric tenderness Musculoskeletal: No Muscle Wasting Neurological: Cranial nerves II-XII grossly intact Psych/Mental Status: Normal Affect Vital Signs Temp Pulse Resp BP Pulse Ox 98.2 F 97 16 138/77 H 93 01/21/19 04:23 01/21/19 07:27 01/21/19 07:08 01/21/19 04:23 01/21/19 07:08 Oxygen Flow Rate (L/min) 2 Oxygen Delivery Method Nasal Cannula Weight: 167 lb 8.821 oz Body Mass Index (BMI) 30.8 Intake and Output for Last 24 Hours 01/19/19 01/20/19 01/21/19 23:59 23:59 23:59 Intake Total 2126.67 / 2606.67 4036.87 / 4108.33 611.88 / 611.88 Balance 2126.67 / 2606.67 4036.87 / 4108.33 611.88 / 611.88 Laboratory Tests Past 24 Hrs 01/20/19 01/20/19 01/20/19 23:05 23:05 23:05 WBC 11.0 RBC 3.44 L Hgb 10.5 L Hct 31.7 L MCV 92.2 MCH 30.5 MCHC 33.1 RDW Std Deviation 45.1 H RDW Coeff of Yessi 13.4 Plt Count 355 MPV 8.8 Immature Gran % (Auto) Neut % (Auto) Lymph % (Auto) [place] % (Auto) Eos % (Auto) Baso % (Auto) Absolute Neuts (auto) Absolute Lymphs (auto) Nucleated RBC % Specimen Type Sample Site pH Bicarbonate Actual POC Total CO2 Base Excess O2 Saturation ABG pCO2 ABG pO2 Alex Test O2 Delivery Device Liter Flow Blood Gas Notified Whom Blood Gas Notified Time Sodium 138 Potassium 2.9 L Chloride 102 Carbon Dioxide 29.0 Anion Gap 7 BUN 5 L Creatinine 0.67 Estim Creat Clear Calc 42.59 Est GFR (MDRD) Af Amer 113 Est GFR (MDRD) Non-Af 93 BUN/Creatinine Ratio 7.5 L Glucose 145 H Lactic Acid Calcium 8.3 L Phosphorus Magnesium Lipase MRSA (PCR) Negative 01/20/19 01/20/19 01/20/19 23:14 23:15 23:15 WBC RBC Hgb Hct MCV MCH MCHC RDW Std Deviation RDW Coeff of Yessi Plt Count MPV Immature Gran % (Auto) Neut % (Auto) Lymph % (Auto) [place] % (Auto) Eos % (Auto) Baso % (Auto) Absolute Neuts (auto) Absolute Lymphs (auto) Nucleated RBC % Specimen Type ART Sample Site L Radial pH 7.47 H Bicarbonate Actual 28.3 H POC Total CO2 29 Base Excess 5 H O2 Saturation 97 ABG pCO2 39.0 ABG pO2 80 Alex Test POS O2 Delivery Device Nasal Can Liter Flow 2.0 Blood Gas Notified Whom [facility] Blood Gas Notified Time 2303 Sodium Potassium Chloride Carbon Dioxide Anion Gap BUN Creatinine Estim Creat Clear Calc Est GFR (MDRD) Af Amer Est GFR (MDRD) Non-Af BUN/Creatinine Ratio Glucose Lactic Acid 1.1 Calcium Phosphorus 2.6 Magnesium 1.7 Lipase MRSA (PCR) 01/21/19 01/21/19 04:55 04:55 WBC 10.6 RBC 3.88 L Hgb 11.6 L Hct 35.8 L MCV 92.3 MCH 29.9 MCHC 32.4 RDW Std Deviation 44.9 H RDW Coeff of Yessi 13.2 Plt Count 351 MPV 8.5 Immature Gran % (Auto) 0.500 Neut % (Auto) 95.3 H Lymph % (Auto) 3.0 L [place] % (Auto) 1.0 Eos % (Auto) 0.1 Baso % (Auto) 0.1 Absolute Neuts (auto) 10.1 H Absolute Lymphs (auto) 0.32 L Nucleated RBC % 0 Specimen Type Sample Site pH Bicarbonate Actual POC Total CO2 Base Excess O2 Saturation ABG pCO2 ABG pO2 Alex Test O2 Delivery Device Liter Flow Blood Gas Notified Whom Blood Gas Notified Time Sodium 138 Potassium 5.4 H Chloride 105 Carbon Dioxide 27.0 Anion Gap 6 BUN 4 L Creatinine 0.54 L Estim Creat Clear Calc 42.59 Est GFR (MDRD) Af Amer 146 Est GFR (MDRD) Non-Af 120 BUN/Creatinine Ratio 7.5 L Glucose 154 H Lactic Acid Calcium 8.9 Phosphorus Magnesium Lipase 435 H MRSA (PCR) Clinical Impression(s) from Imaging Studies Chest X-Ray 01/20/19 21:38 IMPRESSION: Persistent bilateral airspace disease, perhaps greatest in the left lower lobe and the right middle lobe. The distribution and the severity is similar accounting for differences in technique. at 2328 Reported and signed by: Jonathon Phillips MD Electronically Signed: Jonathon Phillips MD at 23:27 EDT Tel , Service support , Medical Necessity - Tobacco Use Smoking Status: Never smoker Tobacco Use: Non-smoker Assessment/Plan All Active Problems (Last Reviewed 01/20/19 @ 22:54 by Isaiah Sim MD) Cholelithiasis (Acute) Hypoxemia (Acute) Constipation (Acute) Aspiration pneumonia (Acute) Acute bronchitis (Acute) 69-year-old female with aspiration pneumonia 1. Patient had increased need for oxygen overnight. Chest x-ray was obtained and hospitalist was consulted. Chest x-ray showed continued left lower lobe infiltration consistent with her aspiration during colonoscopy. Continue antibiotics and weaning O2. Patient may need O2 on discharge. Chest x-ray pending for today. Continue antibiotics on discharge. 2. Patient has a large amount of inflammation around the pancreas from her recent pancreatitis. The patient would like to try to go home on full liquids and I advised that she needs to keep as high calorie intake as possible. I will see the patient back this week and order a repeat CT scan to check the inflammation and monitor formation of pseudocyst. Ervin Salomon MD Pager: [facility] [address] [place] [address], [address] [place] [address] Office:
[2019-01-21 10:01] LABS: Potassium 4.2 mmol/L (3.5-5.1)
[2019-01-21] MEDS: Enoxaparin 40 MG/0.4 ML Syringe SC (10:11)
[2019-01-21] MEDS: Pantoprazole Sodium 40 MG Tablet PO (10:11)
--- NOTE | 2019-01-21 18:55 | PCM.PROGNOTE ---
Patient Problems: Active and Suspected Problems (Last Reviewed 01/20/19 @ 22:54 by Isaiah Sim MD) Constipation (Acute) Aspiration pneumonia (Acute) Acute bronchitis (Acute) Subjective: Patient was seen and examined today, I talked with general surgery about her care. Patient is hypoxic off oxygen, she remains tachycardic at the time of my examination this morning, I told her that I did not feel comfortable with her going home today, I will reassess her tomorrow and see if she has improved. Patient's white blood cell count is normal, chest x-ray shows improved bilateral infiltrates. Patient does complain of shortness of breath on exertion, she denies any fevers or chills - Physical Exam General: Alert, Oriented x3, Cooperative, No apparent distress, Well developed HEENT: Atraumatic, PERRLA, EOMI, Normocephalic Oral: Moist Mucosa Neck: Supple, Trachea Midline, Thyroid Normal Size and Texture Lungs: Normal air movement, Rhonchi - Bilateral expiratory rhonchi scattered over both lungs Cardiovascular: Regular rate, Regular Rhythm, Normal S1, Normal S2, No murmurs, No Ectopic Activity, Tachycardic Abdomen: Bowel Sounds Present, Soft, Non Tender, Non-Distended Extremities: No clubbing, No cyanosis, No edema, Capillary Refill Less than 3 Seconds Skin: No rashes, No breakdown Musculoskeletal: No Tenderness to Palpation of Joints or Extremities Neurological: Cranial nerves II-XII grossly intact, Neuro grossly intact, Sensory exam intact to light touch and pain, Coordination normal Psych/Mental Status: Normal Affect, Appropriate, Alert and oriented to time, place, person, mood and affect Vital Signs Temp Pulse Resp BP Pulse Ox 98.5 F 100 18 126/67 H 93 01/21/19 15:40 01/21/19 15:40 01/21/19 15:40 01/21/19 15:40 01/21/19 15:40 Oxygen Flow Rate (L/min) 2 Oxygen Delivery Method Nasal Cannula Weight: 76 kg Body Mass Index (BMI) 30.8 Intake and Output for Last 24 Hours 01/19/19 01/20/19 01/21/19 23:59 23:59 23:59 Intake Total 2126.67 / 2606.67 4036.87 / 4108.33 1385.88 / 1385.88 Balance 2126.67 / 2606.67 4036.87 / 4108.33 1385.88 / 1385.88 Laboratory Tests Past 24 Hrs 01/20/19 01/20/19 01/20/19 23:05 23:05 23:05 WBC 11.0 RBC 3.44 L Hgb 10.5 L Hct 31.7 L MCV 92.2 MCH 30.5 MCHC 33.1 RDW Std Deviation 45.1 H RDW Coeff of Yessi 13.4 Plt Count 355 MPV 8.8 Immature Gran % (Auto) Neut % (Auto) Lymph % (Auto) [facility] % (Auto) Eos % (Auto) Baso % (Auto) Absolute Neuts (auto) Absolute Lymphs (auto) Nucleated RBC % Specimen Type Sample Site pH Bicarbonate Actual POC Total CO2 Base Excess O2 Saturation ABG pCO2 ABG pO2 Alex Test O2 Delivery Device Liter Flow Blood Gas Notified Whom Blood Gas Notified Time Sodium 138 Potassium 2.9 L Chloride 102 Carbon Dioxide 29.0 Anion Gap 7 BUN 5 L Creatinine 0.67 Estim Creat Clear Calc 42.59 Est GFR (MDRD) Af Amer 113 Est GFR (MDRD) Non-Af 93 BUN/Creatinine Ratio 7.5 L Glucose 145 H Lactic Acid Calcium 8.3 L Phosphorus Magnesium Lipase MRSA (PCR) Negative 01/20/19 01/20/19 01/20/19 23:14 23:15 23:15 WBC RBC Hgb Hct MCV MCH MCHC RDW Std Deviation RDW Coeff of Yessi Plt Count MPV Immature Gran % (Auto) Neut % (Auto) Lymph % (Auto) [facility] % (Auto) Eos % (Auto) Baso % (Auto) Absolute Neuts (auto) Absolute Lymphs (auto) Nucleated RBC % Specimen Type ART Sample Site L Radial pH 7.47 H Bicarbonate Actual 28.3 H POC Total CO2 29 Base Excess 5 H O2 Saturation 97 ABG pCO2 39.0 ABG pO2 80 Alex Test POS O2 Delivery Device Nasal Can Liter Flow 2.0 Blood Gas Notified Whom [facility] Blood Gas Notified Time 2303 Sodium Potassium Chloride Carbon Dioxide Anion Gap BUN Creatinine Estim Creat Clear Calc Est GFR (MDRD) Af Amer Est GFR (MDRD) Non-Af BUN/Creatinine Ratio Glucose Lactic Acid 1.1 Calcium Phosphorus 2.6 Magnesium 1.7 Lipase MRSA (PCR) 01/21/19 01/21/19 01/21/19 04:55 04:55 09:40 WBC 10.6 RBC 3.88 L Hgb 11.6 L Hct 35.8 L MCV 92.3 MCH 29.9 MCHC 32.4 RDW Std Deviation 44.9 H RDW Coeff of Yessi 13.2 Plt Count 351 MPV 8.5 Immature Gran % (Auto) 0.500 Neut % (Auto) 95.3 H Lymph % (Auto) 3.[address] [facility] % (Auto) 1.0 Eos % (Auto) 0.1 Baso % (Auto) 0.1 Absolute Neuts (auto) 10.1 H Absolute Lymphs (auto) 0.32 L Nucleated RBC % 0 Specimen Type Sample Site pH Bicarbonate Actual POC Total CO2 Base Excess O2 Saturation ABG pCO2 ABG pO2 Alex Test O2 Delivery Device Liter Flow Blood Gas Notified Whom Blood Gas Notified Time Sodium 138 Potassium 5.4 H 4.2 Chloride 105 Carbon Dioxide 27.0 Anion Gap 6 BUN 4 L Creatinine 0.54 L Estim Creat Clear Calc 42.59 Est GFR (MDRD) Af Amer 146 Est GFR (MDRD) Non-Af 120 BUN/Creatinine Ratio 7.5 L Glucose 154 H Lactic Acid Calcium 8.9 Phosphorus Magnesium Lipase 435 H MRSA (PCR) Medical Necessity - Tobacco Use Smoking Status: Never smoker Tobacco Use: Non-smoker Assessment/Plan All Active Problems (Last Reviewed 01/20/19 @ 22:54 by Isaiah Sim MD) Cholelithiasis (Acute) Hypoxemia (Acute) Constipation (Acute) Aspiration pneumonia (Acute) Acute bronchitis (Acute) #1 acute aspiration pneumonia-continue present antibiotic administration and continue aerosol treatments every 6 hours, continue to wean oxygen if possible #2 hypoxia secondary to #1-continue to wean oxygen if possible #3 hypokalemia-resolved at this time I stopped the patient's prednisone today, I do not feel she needs prednisone. Code Visit OBSV E&M: 49201 Subsequent observation care L3
[2019-01-21] MEDS: Calcium Carbonate 500 MG Tablet 1000 MG PO (20:45)
[2019-01-21] MEDS: Albuterol 2.5 MG/3 ML VIAL.NEB. INHALATION (22:04)
[2019-01-22] VITALS (14 sets, daily range): BP systolic 105–134; BP diastolic 71–80; PULSE 83–98; RESP 16–24; TEMP 36.8–37.2; O2SAT 93–95
[2019-01-22] MEDS: Ipratropium/Albuterol Sulfate 3 ML AMPUL.NEB INHALATION ×3 (01:50→18:50)
[2019-01-22] MEDS: Calcium Carbonate 500 MG Tablet 1000 MG PO (03:02)
[2019-01-22] MEDS: Piperacil/Tazobactam 3.375 GM/50 ML ML IV ×3 (05:35→22:24)
[2019-01-22] MEDS: Enoxaparin 40 MG/0.4 ML Syringe SC (07:39)
[2019-01-22] MEDS: Pantoprazole Sodium 40 MG Tablet PO (07:39)
[2019-01-22] MEDS: Aspirin 325 MG Tablet PO (09:10)
--- NOTE | 2019-01-22 09:52 | PN.SURG_ITS ---
Patient Problems: Active and Suspected Problems (Last Reviewed 01/20/19 @ 22:54 by Isaiah Sim MD) Constipation (Acute) Aspiration pneumonia (Acute) Acute bronchitis (Acute) Subjective: Patient reports that she is still having heartburn. She still complains of fullness in the epigastric area. - Physical Exam General: Alert, Oriented x3 Oral: Moist Mucosa Neck: No JVD Cardiovascular: Regular rate, Regular Rhythm Abdomen: Soft, Non-Distended, Tender - Mild epigastric and right upper quadrant tenderness Vital Signs Temp Pulse Resp BP Pulse Ox 98.5 F 87 16 132/71 H 94 01/22/19 09:00 01/22/19 09:00 01/22/19 09:00 01/22/19 09:00 01/22/19 09:00 Oxygen Flow Rate (L/min) 2 Oxygen Delivery Method Nasal Cannula Weight: 167 lb 8.821 oz Body Mass Index (BMI) 30.8 Intake and Output for Last 24 Hours 01/20/19 01/21/19 01/22/19 23:59 23:59 23:59 Intake Total 4036.87 / 4108.33 2055.88 / 2055.88 538 / 538 Balance 4036.87 / 4108.33 2055.88 / 2055.88 538 / 538 Laboratory Tests Past 24 Hrs 01/21/19 09:40 Potassium 4.2 Medical Necessity - Tobacco Use Smoking Status: Never smoker Tobacco Use: Non-smoker Assessment/Plan All Active Problems (Last Reviewed 01/20/19 @ 22:54 by Isaiah Sim MD) Cholelithiasis (Acute) Hypoxemia (Acute) Constipation (Acute) Aspiration pneumonia (Acute) Acute bronchitis (Acute) 69-year-old female with aspiration pneumonia and postoperative gastric outlet obstruction 1. The patient is still having oxygen requirements from her aspiration pneumonia. Antibiotic's are being continued. She is only on 2 L of O2 and saturating at 96%. 2. The patient had CT after her colonoscopy which showed inflammation in the right retroperitoneum as well as around the pancreas which was likely sequelae from her pancreatitis from earlier this month. Patient is likely having gastric outlet obstruction due to this inflammation. She has tried a full liquid diet but was unable to keep up with recommended caloric intake. I recommended to the patient that a PICC line be placed and she be put on TPN until the gastric outlet obstruction resolves. I explained this likely may take weeks. I will arrange for her to be discharged to an ECF on TPN and O2. She will follow-up with me in 1 week. We will obtain a repeat CT scan and treat any pseudocysts as necessary. Ervin Salomon MD Pager: [facility] [address] [place] [address] [address] [place] [address] Office:
--- NOTE | 2019-01-22 12:04 | CASEMGMT ---
Social Work SW spoke with Dr. Salomon regarding pt discharge plan. Pt may need TPN and SNF placement. Per Dr. Salomon, pt is interested in [facility] and [facility] if SNF is needed. Phone call to [facility] and they do not take TPN. Call to Kenzie at [facility] and referral faxed. They are able to accept pt. Pt will be private pay at SNF and will have to pay a month up from (private room $5040, semi private $4800). TPN will likely be $100/day as an additional cost. Dr. Salomon notified that facility is accepting if this is the route they choose to go. Dr. Salomon to speak with family regarding treatment options. [place] Main
--- NOTE | 2019-01-22 13:03 | PN_ITS ---
Progress Note After discussing PICC line and TPN with the patient and her family she would like another option. I discussed PEG tube placement with through the tube jejunal feeding tube. I believe that this may be a viable option for her. She may then be allowed to be discharged home instead of to an ECF and she would be able to perform postpyloric tube feeds while her pancreatitis resolves. I discussed this with the patient and her family and they had a long discussion about this. They would like to proceed with EGD and PEG tube placement. I disc ussed the risks of the procedure including but not limited to bleeding, infection, colon injury, displacement of tube, aspiration, heart attack, stroke. Patient understands risks and is willing to proceed with surgery. I have ordered the tube for her and plan to perform this tomorrow morning. She can continue diet today and be n.p.o. after midnight. Ervin Salomon MD Pager: [facility] [address] [place] [address] [address] [place] [address] Office:
--- NOTE | 2019-01-22 13:27 | CASEMGMT ---
Social Work Per Dr. Salomon, pt and family now choosing peg tube placement and return home. Phone call to Kenzie at [facility] and notified that pt will not be coming to the facility at this time. R[place] Main
--- NOTE | 2019-01-22 14:58 | CASEMGMT ---
Readmission chart review: Pt initially admitted 01/02/19 for lap ruiz and then to ERCP the following day. Pt then developed a pancreatic ileus and severe constipation s/p surgery. Pt was also on 3liters s/p surgery and had to be weaned off oxygen. See assessment completed by Ariel GOVEA CM on 01/05/19. Pt returned to [facility] for colonoscopy on 01/19/[address] Salomon's note, pt was tachycardic with low oxygen saturations and Dr. Salomon states pt did have some aspiration with left lower lobe infiltration during procedure. Pt admitted to PCU on 4 liters of oxygen and cardiac monitoring. Pt with antibx and oxygen. Dr. Salomon states pt likely has gastric outlet obstruction due to pancreatic inflammation. Pt tried full liquid diet but is unable to keep up with caloric intake. Dr. Salomon initially wanted to do [place] but pt refused, so then he decided to do a PICC and TPN and pt agreed to go to SNF at that time but wanted to have a family meeting as Dr. Smith suggested a peg tube with tube feeds at home. Pt/family then agreed to peg tube placement and this will be completed 01/23 in the am and then tube feeds to be advanced as tolerated. CM to follow for further tube feed orders. Eric GOVEA CM
--- NOTE | 2019-01-22 18:21 | PCM.PROGNOTE ---
Patient Problems: Active and Suspected Problems (Last Reviewed 01/20/19 @ 22:54 by Isaiah Sim MD) Constipation (Acute) Aspiration pneumonia (Acute) Acute bronchitis (Acute) Subjective: She was seen and examined today, she remains on 2 L of oxygen, he does not appear to be in any respiratory distress. Her pulse rate has improved since yesterday. I talked with general surgery about her care, patient's oral intake is still poor, this is been going on for at least 2 weeks and general surgery recommended insertion of a PEG tube with an extension into the jejunum. Patient is agreed to this. This will be performed tomorrow. Patient will remain on her current antibiotic coverage and aerosol treatments. - Physical Exam General: Alert, Oriented x3, Cooperative, No apparent distress, Well developed HEENT: Atraumatic, PERRLA, EOMI, Normocephalic Oral: Moist Mucosa Neck: Supple, No JVD, Trachea Midline, Thyroid Normal Size and Texture Lungs: Normal air movement, No wheeze, No rales, Rhonchi - Expiratory rhonchi are noted over both lung husain Cardiovascular: Regular rate, Regular Rhythm, Normal S1, Normal S2, No murmurs Abdomen: Bowel Sounds Present, Soft, Non Tender, Non-Distended, No hernias noted Extremities: No clubbing, No cyanosis, No edema, Capillary Refill Less than 3 Seconds Skin: No rashes, No breakdown Musculoskeletal: No Tenderness to Palpation of Joints or Extremities Neurological: Cranial nerves II-XII grossly intact, Neuro grossly intact, Sensory exam intact to light touch and pain Psych/Mental Status: Normal Affect, Appropriate, Alert and oriented to time, place, person, mood and affect Vital Signs Temp Pulse Resp BP Pulse Ox 98.2 F 92 16 127/72 H 94 01/22/19 15:00 01/22/19 16:00 01/22/19 15:00 01/22/19 15:00 01/22/19 15:00 Oxygen Flow Rate (L/min) 2 Oxygen Delivery Method Nasal Cannula Weight: 76 kg Body Mass Index (BMI) 30.8 Intake and Output for Last 24 Hours 01/20/19 01/21/19 01/22/19 23:59 23:59 23:59 Intake Total 4036.87 / 4108.33 2055.88 / 2055.88 1068 / 1068 Balance 4036.87 / 4108.33 / 1068 / 1068 Medical Necessity - Tobacco Use Smoking Status: Never smoker Tobacco Use: Non-smoker Assessment/Plan All Active Problems (Last Reviewed 01/20/19 @ 22:54 by Isaiah Sim MD) Cholelithiasis (Acute) Hypoxemia (Acute) Constipation (Acute) Aspiration pneumonia (Acute) Acute bronchitis (Acute) #1 acute aspiration pneumonia-continue present antibiotic administration and continue aerosol treatments every 6 hours, continue to wean oxygen if possible, may be necessary for the patient to be discharged home on home O2 for short period of time #2 hypoxia secondary to #1-continue to wean oxygen if possible #3 hypokalemia-resolved at this time #4 moderate caloric and protein malnutrition-again patient will have a PEG tube with a jejunostomy extension placed tomorrow, it is likely she will be discharged home after the family is comfortable with providing her tube feeds, nutritional services will recommend what tube feeding to use. Code Visit Inpatient E&M: 47749 Subs Hosp L2
[2019-01-23] VITALS (21 sets, daily range): BP systolic 102–143; BP diastolic 55–88; PULSE 91–115; RESP 16–20; TEMP 36.5–37.2; O2SAT 92–96
[2019-01-23] MEDS: 0.9% NaCl IVPB Med Flush (250 mL) 15 ML IV (05:51)
[2019-01-23] MEDS: Piperacil/Tazobactam 3.375 GM/50 ML ML IV (05:51)
[2019-01-23] MEDS: Ipratropium/Albuterol Sulfate 3 ML AMPUL.NEB INHALATION ×2 (07:20→11:40)
--- NOTE | 2019-01-23 07:58 | PN.SURG_ITS ---
Patient Problems: Active and Suspected Problems (Last Reviewed 01/20/19 @ 22:54 by Isaiah Sim MD) Constipation (Acute) Aspiration pneumonia (Acute) Acute bronchitis (Acute) Subjective: Patient reports she is doing well this morning. No nausea or vomiting. - Physical Exam General: Alert, Oriented x3 Neck: No JVD Cardiovascular: Regular rate, Regular Rhythm Abdomen: Soft, Non-Distended, Tender - Tender in the epigastric region Vital Signs Temp Pulse Resp BP Pulse Ox 98.9 F 98 18 126/72 H 95 01/23/19 05:56 01/23/19 07:12 01/23/19 05:56 01/23/19 05:56 01/23/19 05:56 Oxygen Flow Rate (L/min) 2 Oxygen Delivery Method Nasal Cannula Weight: 167 lb 8.821 oz Body Mass Index (BMI) 30.8 Intake and Output for Last 24 Hours 01/21/19 01/22/19 01/23/19 23:59 23:59 23:59 Intake Total 2054. / 1237.58 / 1237.58 130.67 / 130.67 Balance / 1237.58 / 1237.58 130.67 / 130.67 Medical Necessity - Tobacco Use Smoking Status: Never smoker Tobacco Use: Non-smoker Assessment/Plan All Active Problems (Last Reviewed 01/20/19 @ 22:54 by Isaiah Sim MD) Cholelithiasis (Acute) Hypoxemia (Acute) Constipation (Acute) Aspiration pneumonia (Acute) Acute bronchitis (Acute) 69-year-old female with sequelae of pancreatitis 1. Patient has a large amount of inflammation in the retroperitoneum around the pancreas. This is likely sequelae of pancreatitis after ERCP. Patient also to ears to be having gastric outlet obstruction and unable to tolerate diet. I discussed PEG with through the tube jejunostomy tube. This will extend to the postpyloric region and she may give herself tube feeds until the pancreatitis has resolved. Patient will follow-up with me after discharge but this will allow her to go home which is what she would like. 2. Patient also had aspiration pneumonia during colonoscopy. Continue antibiotics as an outpatient. She is still on 2 L of oxygen. I am attempting to wean this down. Ervin Salomon MD Pager: [facility] [address] [place] [address], [address] [place] [address] Office:
[2019-01-23] MEDS: Lactated Ringers 1,000 ML 100 ML IV (10:18)
--- NOTE | 2019-01-23 11:36 | OP.ENDO_ITS ---
01/23/2019 Gabriel Proctor Re : Upper GI endoscopy procedure for Ruthie Ayon Dear Esthela This procedure was performed on Wednesday, January 23, 2019. My impressions and recommendations are as follows: Impressions : - An externally removable PEG-J placement was successfully completed. - No specimens collected. Recommendations : - [facility]. - Clear liquid diet. - Continue present medications. - Please follow the post-PEG recommendations including: Nutrition consult for formula and volume, external bolster snug to abdominal wall, change dressing once per day, start using PEG today, check site for bleeding q 4 hrs and clean site with soap and water daily and dry thoroughly. My findings are described in the full procedure note, which is enclosed. If I can be of further assistance, please feel free to contact me at Doctor phone number(s): , Work: . Sincerely, Ervin Salomon MD 01/23/2019 11:36:01 AM This report has been signed electronically.
[2019-01-23] MEDS: Morphine 2 MG/ML Syringe IV ×2 (13:05→15:28)
--- NOTE | 2019-01-23 15:24 | CASEMGMT ---
Pt to be sent home on TF boluses as per dietary recommendations. [facility] retail pharmacy is able to provide a case of 8 liters of Jevity 1.5cal and 60cc syringes at discharge which will last pt at least 8 days as she will be increasing from 100ml 5 times/day up to 200ml 5 times daily. Pt/family updated on this and approximate walter at this time per Tim in pharmacy, around $25 for the Jevity/case. Pt/family also agreeable to [facility]HC RN at this time and list provided of local [facility] agencies. This RN SCOTT will check back with pt/family to see which [facility] agency they choose. Pt states that she has f/u appt with Dr. Salomon on 01/30/19 and she plans to keep it and will get more Jevity at that time unless TF order is changed by Umm at that time. SStlili GOVEA CM
--- NOTE | 2019-01-23 15:40 | RAD_ITS ---
STUDY: X-RAY - ABDOMEN/PELVIS REASON FOR EXAM: Female, 69 years old. J-tube placement TECHNIQUE: Single AP view of the abdomen / pelvis. COMPARISON: Abdominal x-ray 01/10/2019. FINDINGS: Normal visualized lung bases. There is a J-tube corresponding to the duodenum and proximal jejunum. Its tip terminates in the left mid abdomen. There is an unremarkable bowel gas pattern. There is no demonstrated free abdominal air. The visualized liver, spleen and kidneys are grossly normal in size and morphology. Normal soft tissue structures. Normal visualized osseous structures. RAD/Abdomen Single View (Portable) IMPRESSION: J-tube tip terminates in the left mid abdomen. Electronically Signed: Erum Bauer, at 16:49 EDT Tel , Service support ,
[2019-01-23] MEDS: Jevity 1.5. 1,000 ML Bottle 100 ML GT ×2 (18:04→22:27)
--- NOTE | 2019-01-23 18:32 | PCM.PROGNOTE ---
Patient Problems: Active and Suspected Problems (Last Reviewed 01/20/19 @ 22:54 by Isaiah Sim MD) Constipation (Acute) Aspiration pneumonia (Acute) Acute bronchitis (Acute) Subjective: Patient was seen and examined today, she had a PEG tube inserted and a J-tube inserted through the PEG tube today. There is no complications during the procedure. Started the patient's tube feedings late this afternoon, patient's family will need to be taught how to give her tube feedings. Also talked briefly with general surgery about her care. - Physical Exam General: Alert, Oriented x3, Cooperative, No apparent distress HEENT: Atraumatic, PERRLA, EOMI, Normocephalic Oral: Moist Mucosa Neck: Supple, Trachea Midline, Thyroid Normal Size and Texture Lungs: Clear to auscultation, Normal air movement Cardiovascular: Regular rate, No murmurs Abdomen: Bowel Sounds Present, Soft, Non Tender Extremities: No clubbing, No edema, Capillary Refill Less than 3 Seconds Skin: No rashes, No breakdown Musculoskeletal: No Tenderness to Palpation of Joints or Extremities Neurological: Cranial nerves II-XII grossly intact, Neuro grossly intact, Sensory exam intact to light touch and pain Psych/Mental Status: Normal Affect, Appropriate, Alert and oriented to time, place, person, mood and affect Vital Signs Temp Pulse Resp BP Pulse Ox 98.5 F 98 18 133/71 H 93 01/23/19 17:00 01/23/19 17:00 01/23/19 17:00 01/23/19 17:00 01/23/19 17:00 Oxygen Flow Rate (L/min) 1 Oxygen Delivery Method Nasal Cannula Weight: 76 kg Body Mass Index (BMI) 30.8 Intake and Output for Last 24 Hours 01/21/19 01/22/19 01/23/19 23:59 23:59 23:59 Intake Total 2054. / 1237.58 / 1237.58 434.00 / 434.00 Output Total Balance 2054. / 1237.58 / 1237.58 433.00 / 433.00 Medical Necessity - Tobacco Use Smoking Status: Never smoker Tobacco Use: Non-smoker Assessment/Plan All Active Problems (Last Reviewed 01/20/19 @ 22:54 by Isaiah Sim MD) Cholelithiasis (Acute) Hypoxemia (Acute) Constipation (Acute) Aspiration pneumonia (Acute) Acute bronchitis (Acute) #1 acute aspiration pneumonia-continue present antibiotic administration and continue aerosol treatments every 6 hours, continue to wean oxygen if possible, may be necessary for the patient to be discharged home on home O2 for short period of time, patient's respiratory exam today appears improved #2 hypoxia secondary to #1-continue to wean oxygen if possible #3 hypokalemia-resolved at this time #4 moderate caloric and protein malnutrition-again patient will have a PEG tube with a jejunostomy extension placed tomorrow, it is likely she will be discharged home after the family is comfortable with providing her tube feeds, nutritional services will recommend what tube feeding to use. #5 gastric outlet obstruction secondary to pancreatitis-I will get recommendations from general surgery about diet when the patient is discharged to home Code Visit Inpatient E&M: 16794 [facility] Hosp L2
--- NOTE | 2019-01-23 18:46 | NURSING ---
Reviewed Shelbie Deng's charting.
[2019-01-23] MEDS: MELATONIN 10 MG TABLET PO (22:39)
[2019-01-24] VITALS (14 sets, daily range): BP systolic 117–125; BP diastolic 57–68; PULSE 82–100; RESP 16–20; TEMP 36.7–36.9; O2SAT 86–98
[2019-01-24] MEDS: Morphine 2 MG/ML Syringe IV ×2 (02:11→05:53)
[2019-01-24] MEDS: 0.9% NaCl Peripheral Flush Adult/Peds IV ×2 (02:11→05:53)
[2019-01-24] MEDS: Jevity 1.5. 1,000 ML Bottle 100 ML GT ×4 (05:52→21:19)
[2019-01-24] MEDS: Ipratropium/Albuterol Sulfate 3 ML AMPUL.NEB INHALATION ×3 (07:20→19:24)
--- NOTE | 2019-01-24 07:54 | PN.SURG_ITS ---
Patient Problems: Active and Suspected Problems (Last Reviewed 01/20/19 @ 22:54 by Isaiah Sim MD) Constipation (Acute) Aspiration pneumonia (Acute) Acute bronchitis (Acute) Subjective: Patient reports several bowel movements overnight. She was having diarrhea. She has no abdominal pain with the tube feeds. - Physical Exam General: Alert, Oriented x3 Lungs: Normal air movement Cardiovascular: Regular rate, Regular Rhythm Abdomen: Soft, Non-Distended Vital Signs Temp Pulse Resp BP Pulse Ox 98.1 F 95 18 125/66 H 98 01/24/19 06:00 01/24/19 07:21 01/24/19 07:21 01/24/19 06:00 01/24/19 06:00 Oxygen Flow Rate (L/min) 0 Oxygen Delivery Method Room Air Weight: 167 lb 8.821 oz Body Mass Index (BMI) 30.8 Intake and Output for Last 24 Hours 01/22/19 01/23/19 01/24/19 23:59 23:59 23:59 Intake Total 1237.58 / 1237.58 1003.38 / 1003.38 342.12 / 342.12 Output Total 2 / 2 Balance 1237.58 / 1237.58 1001.38 / 1001.38 342.12 / 342.12 Medical Necessity - Tobacco Use Smoking Status: Never smoker Tobacco Use: Non-smoker Assessment/Plan All Active Problems (Last Reviewed 01/20/19 @ 22:54 by Isaiah Sim MD) Cholelithiasis (Acute) Hypoxemia (Acute) Constipation (Acute) Aspiration pneumonia (Acute) Acute bronchitis (Acute) 69-year-old female with pancreatitis and gastric outlet obstruction 1. Patient had jejunostomy tube placed yesterday and tube feeds were initiated. Patient began to have diarrhea which I believe is due to the tube feeds. C. difficile is being checked. 2. I will transition the patient to Augmentin and discharged home on a few days of oral antibiotics due to the aspiration pneumonia. 3. We will check with dietitian to see if tube feeds need to be altered or if her colon just needs adjust. 4. I hope and anticipate for discharge today. I advised that she may continue clear liquids by mouth and to take all her medications by mouth and only to tube feeds through the tube. She will follow-up with me in 1 week on January 30 as scheduled. Plan for repeat CT scan in 3 to 4 weeks. Ervin Salomon MD Pager: [facility] [address] [place] [address], [address] [place] [address] Office:
[2019-01-24] MEDS: Pantoprazole Sodium 20 MG Tablet PO ×2 (08:58→21:19)
[2019-01-24] MEDS: Enoxaparin 40 MG/0.4 ML Syringe SC (08:58)
--- NOTE | 2019-01-24 10:15 | CASEMGMT ---
This RN CM to room to see if pt chose a [facility] company at this time. Pt states that they would like [facility] at this time. Message left with Kendy at [facility] in regards to same and asked her to call this RN CM back with any questions. Order placed in [facility] for senior care. SStlili GOVEA CM
[2019-01-24] MEDS: Acetaminophen 325 MG Tablet 650 MG PO ×2 (11:13→20:26)
--- NOTE | 2019-01-24 11:59 | CASEMGMT ---
Pt does qualify for home oxygen at this time and pt provided with list of local DME companies. Pt states would like [employer] at this time. Ref[place] [facility] once order signed by Dr. Smith. Pt states does have a generator at home but unsure of capabilities. [facility] is aware that pt is [place] and has a generator and states will touch base with in regards to preference on concentrator or liquid oxygen. Per Kendy at [facility], they should be able to take pt at this time and this RN CM will notify her of discharge date, voices understanding. Order for [facility]. Eric GOVEA CM
--- NOTE | 2019-01-24 13:34 | CASEMGMT ---
Script for Jevity and 60cc syringes faxed to [facility] retail pharmacy at this time. Eric GOVEA CM
--- NOTE | 2019-01-24 13:48 | NS ---
Reviewed tube feeds at home booklet w/ patient. Encouraged pt to follow-up w/ outpatient Nutrition Services as needed. Pt hoping to be discharged today. RD recommendations for discharge as follows: Continue clear liquids by mouth as tolerated per Dr. Salomon. Recommend increase tube feeds as tolerated to 200mL Jevity 1.5 via J-tube five times per day with 75mL H2O flush before and after each feeding. This will provide 1500 calories, 64 grams protein, and 1510mL total fluid per day. *Provide boluses slowly via syringe to improve tolerance. It may be appropriate to switch to gravity feeds if pt unable to tolerate bolus feedings at goal rate at home.* Spencer Zuluaga MS, RDN, LD
--- NOTE | 2019-01-24 14:00 | RAD_ITS ---
STUDY: X-RAY CHEST REASON FOR EXAM: Female, 69 years old. Shortness of breath TECHNIQUE: Single AP portable view of the chest. COMPARISON: 01/21/2019 FINDINGS: The lungs are clear and expanded. There is no demonstrated pleural abnormality. Normal size heart. Normal mediastinum and bon. Normal visualized pulmonary arteries. Normal visualized aortic arch and descending thoracic aorta. Normal visualized thoracic spine. Normal visualized ribs, clavicles, and shoulders. There is no demonstrated abnormality of the visualized soft tissue structures of the upper abdomen. RAD/Chest 1 View (Portable) IMPRESSION: Normal x-ray examination of the chest. Electronically Signed: Erum Bauer, at 15:01 EDT Tel , Service support ,
[2019-01-24 14:29] LABS: Absolute Lymphocyte Count 1.07 X10^3/uL (0.83-4.51); Absolute Neutrophil Count 4.5 X10^3/uL (2.0-7.7); Basophil# 0.02 X10^3/uL; Basophil% 0.3 % (0-1); Eosinophil# 0.13 X10^3/uL; Eosinophils% 2.1 % (0-5); Hematocrit 34.7 % (37-47); Hemoglobin 11.3 g/dL (12.0-15.0); Lymphocyte # 1.07 X10^3/ul (4.0); Lymphocyte % 16.9 % (19-41); Mean Corp Hgb Conc 32.6 g/dL (32-36); Mean Corpuscular Hgb 29.5 pg (27.0-32.0); Mean Corpuscular Volume 90.6 fL (81-99); Mean Platelet Vol. 8.4 fl (6.2-12.0); Monocyte# 0.56 X10^3/uL; Monocyte% 8.8 % (0-10); NRBC Flagged by Analyzer 0 % (0-5); Neutrophil # 4.53 X10^3/uL (2.7-7.7); Neutrophil % 71.4 % (47-70); Platelet Count 330 K/mm3 (150-450); RBC Distribution Width CV 13.3 % (11.6-14.6); Red Blood Count 3.83 M/mm3 (4.2-5.4); White Blood Count 6.3 K/mm3 (4.4-11.0)
--- NOTE | 2019-01-24 15:47 | CASEMGMT ---
XUAN CM Note: Kendy, [facility] updated pt will remain @ [facility], no dc today. Ariel FORD RN ACM
[2019-01-24] MEDS: Amox/Clavulanate 875 MG Tablet PO ×2 (17:05→21:19)
--- NOTE | 2019-01-24 18:56 | PN_ITS ---
Patient Problems: Active and Suspected Problems (Last Reviewed 01/20/19 @ 22:54 by Isaiah Sim MD) Constipation (Acute) Aspiration pneumonia (Acute) Acute bronchitis (Acute) Subjective: Patient was seen and examined today, she states she is still coughing up yellow and green sputum, her oxygen requirement nia today to 3 L briefly, at the time of this dictation it is back down to 2 L. Patient looked weak today and I did not feel comfortable medically with her going home, I ordered a chest x-ray (portable) which was read out as normal-I reviewed this chest x-ray and I agree. A CBC was drawn this afternoon which showed a normal white blood cell count. Patient is complaining of intermittent diarrhea, I think it is due to to her tube feedings, I have placed her on Imodium AD. I think is likely that the patient may have atelectasis and needs to get up and move around more. I told the patient that she may need to be set up with short- term oxygen tomorrow if she still needs low flow nasal cannula O2 to maintain her sat. - Physical Exam General: Alert, Oriented x3, Cooperative, No apparent distress, Well developed HEENT: Atraumatic, PERRLA, EOMI, Normocephalic Oral: Moist Mucosa Neck: Supple, Trachea Midline, Thyroid Normal Size and Texture Lungs: Normal air movement, No wheeze, No rales, Rhonchi - Expiratory rhonchi bilaterally Cardiovascular: Regular rate, Regular Rhythm, Normal S1, Normal S2, No murmurs, No Ectopic Activity, PMI Normal, No Gallop Abdomen: Bowel Sounds Present, Soft, Non Tender, - - PEG/jejunostomy tube in place Extremities: No clubbing, No cyanosis, No edema, Capillary Refill Less than 3 Seconds Skin: No rashes, No breakdown Musculoskeletal: No Tenderness to Palpation of Joints or Extremities Neurological: Cranial nerves II-XII grossly intact, Neuro grossly intact, Sensory exam intact to light touch and pain Psych/Mental Status: Normal Affect, Appropriate, Alert and oriented to time, place, person, mood and affect Vital Signs Temp Pulse Resp BP Pulse Ox 98.2 F 84 18 125/57 H 96 01/24/19 15:00 01/24/19 15:53 01/24/19 15:53 01/24/19 15:00 01/24/19 15:00 Oxygen Flow Rate (L/min) [ 3 AMBULATION with Oxygen] Oxygen Flow Rate (L/min) 2 Oxygen Delivery Method Nasal Cannula Weight: 76 kg Body Mass Index (BMI) 30.8 Intake and Output for Last 24 Hours 01/22/19 01/23/19 01/24/19 23:59 23:59 23:59 Intake Total 1237.58 / 1237.58 1003.38 / 1003.38 1442.12 / 1442.12 Output Total 2 / 2 Balance 1237.58 / 1237.58 1001.38 / 1001.38 1442.12 / 1442.12 Microbiology Past 72 Hours 01/24/19 09:40 C. difficile DNA Amplification - Final Stool Laboratory Tests Past 24 Hrs 01/24/19 14:20 WBC 6.3 RBC 3.83 L Hgb 11.3 L Hct 34.7 L MCV 90.6 MCH 29.5 MCHC 32.6 RDW Std Deviation 44.0 H RDW Coeff of Yessi 13.3 Plt Count 330 MPV 8.4 Immature Gran % (Auto) 0.500 Neut % (Auto) 71.4 H Lymph % (Auto) 16.9 L [place] % (Auto) 8.8 Eos % (Auto) 2.1 Baso % (Auto) 0.3 Absolute Neuts (auto) 4.5 Absolute Lymphs (auto) 1.07 Nucleated RBC % 0 Medical Necessity - Tobacco Use Smoking Status: Never smoker Tobacco Use: Non-smoker Assessment/Plan All Active Problems (Last Reviewed 01/20/19 @ 22:54 by Isaiah Sim MD) Cholelithiasis (Acute) Hypoxemia (Acute) Constipation (Acute) Aspiration pneumonia (Acute) Acute bronchitis (Acute) #1 acute aspiration pneumonia/aspiration-IV antibiotics were stopped today and the patient was placed on Augmentin, I signed paperwork for the patient to have her tube feeds and low flow oxygen if required, patient's pulse ox will be monitored tomorrow morning again and if she needs short-term oxygen, she will up to go home with oxygen. Patient's pulmonary infiltrates have resolved #2 hypoxia secondary to #1 and possible atelectasis -continue to wean oxygen if possible #3 hypokalemia-resolved at this time #4 moderate caloric and protein malnutrition-again patient's tube feeds will continue #5 gastric outlet obstruction secondary to pancreatitis-surgery would like the patient to stay on clear liquids and her oral medications for now and receive nutrition through her PEG/jejunostomy tube #6 diarrhea-probably secondary to tube feeds, patient was placed on Imodium, I think it is less likely that the patient has C. difficile Code Visit Inpatient E&M: 36725 [facility] Hosp L2
[2019-01-24] MEDS: MELATONIN 10 MG TABLET PO (21:19)
[2019-01-25 03:00] VITALS: BP 130/71; PULSE 88; RESP 16; TEMP 36.4; O2SAT 95
[2019-01-25 03:04] VITALS: PULSE 86
[2019-01-25] MEDS: Jevity 1.5. 1,000 ML Bottle 100 ML GT (05:35)
[2019-01-25] MEDS: Loperamide 2 MG Capsule 4 MG PO (05:45)
[2019-01-25 07:08] VITALS: PULSE 90; RESP 14; O2SAT 95
[2019-01-25] MEDS: Ipratropium/Albuterol Sulfate 3 ML AMPUL.NEB INHALATION (07:08)
--- NOTE | 2019-01-25 07:27 | DCINST_ITS ---
- Discharge Diagnoses Current Active Problems: Current Active and Chronic Problems (Last Reviewed 01/20/19 @ 22:54 by Isaiah Sim MD) Constipation (Acute) Aspiration pneumonia (Acute) Acute bronchitis (Acute) You will use the following diet at home:: Clear liquid Your liquids should be the consistency of: Regular/Thin Discharge Activity: No Restrictions Call your doctor if your incision/area has: Continuous Slow Oozing, Sudden Increased Bleeding, Increased Pain/ Swelling, Increased Redness, Foul Smelling Discharge, Swelling at the incision site Call your doctor if you observe: Fever of 101 or Higher Additional Instructions: NO MEDS THROUGH TUBE. ok for all meds oral. Tube feeds as instructed. Allergies/Adverse Reactions: Allergies No Known Allergies Allergy (Verified 01/19/19 08:35) Medications to take at Discharge multivitamin tablet 1 tab PO DAILY 01/01/19 L.acidoph,Paracasei, B.lactis [Probiotic] 1 ea PO DAILY 01/18/19 Amox/Clavulanate Tablet [Augmentin Tablet] 875 mg PO BID 3 Days #6 tab 01/25/19 Aspirin 325 mg PO DAILY@0800 tab 01/25/19 Jevity 1.5 100 ml GT 5X/DAY #8 bottle 01/25/19 Pantoprazole Sodium [Protonix] 20 mg PO BID 30 Days #60 tab 01/25/19 The following prescriptions were given: Amox/Clavulanate Tablet [Augmentin Tablet] 875 mg PO BID 3 Days #6 tab Transmission Status: Sent to [facility] Jevity 1.5 100 ml GT 5X/DAY #8 bottle Transmission Status: Sent to [facility] Pantoprazole Sodium [Protonix] 20 mg PO BID 30 Days #60 tab Transmission Status: Sent to [facility] Primary Care Physician: Gabriel Proctor MD [Primary Care Provider] - Test Results: Test results from this visit will be discussed in further detail at your follow- up appointment, if applicable. Please Follow Up With: Ervin Salomon MD When: Follow up as scheduled on 01/30
--- NOTE | 2019-01-25 07:29 | DS.PCM_ITS ---
Discharge Date and Diagnosis Date of Admission: 01/19/19 Date of Discharge: 01/25/19 - Primary Discharge Diagnosis Active and Suspected Problems (Last Reviewed 01/20/19 @ 22:54 by Isaiah Sim MD) Constipation (Acute) Aspiration pneumonia (Acute) Acute bronchitis (Acute) Hospital Course and Treatment Procedures: Colonoscopy, Peg tube placement Summary of Care Provided: The patient is a 69 year old F who presented to the office with abdominal pain. She underwent bowel prep and colonoscopy. Colonoscopy was normal. She did have aspiration during the procedure. She was admitted to the floor postoperatively. CT scan revealed sequelae of pancreatitis from her prior hospitalization. She was tried on a full liquid diet was able to tolerate this. After several days a PEG tube was placed with a through the PEG jejunostomy feeding tube and tube feeds were initiated. Once she was off oxygen and tolerating tube feeds she was discharged home with home health to follow-up closely with me. - Physical Exam Vital Signs Temp Pulse Resp BP Pulse Ox 97.5 F L 86 16 130/71 H 95 01/25/19 03:00 01/25/19 03:04 01/25/19 03:00 01/25/19 03:00 01/25/19 03:00 Oxygen Flow Rate (L/min) [ 3 AMBULATION with Oxygen] Oxygen Flow Rate (L/min) 1 Oxygen Delivery Method Nasal Cannula Weight: 167 lb 8.821 oz Body Mass Index (BMI) 30.8 Intake and Output for Last 24 Hours 01/23/19 01/24/19 01/25/19 23:59 23:59 23:59 Intake Total 1003.38 / 1003.38 1842.12 / 1842.12 350 / 350 Output Total 2 / 2 Balance 1001.38 / 1001.38 1842.12 / 1842.12 350 / 350 Microbiology Past 72 Hours 01/24/19 09:40 C. difficile DNA Amplification - Final Stool Laboratory Tests Past 24 Hrs 01/24/19 14:20 WBC 6.3 RBC 3.83 L Hgb 11.3 L Hct 34.7 L MCV 90.6 MCH 29.5 MCHC 32.6 RDW Std Deviation 44.0 H RDW Coeff of Yessi 13.3 Plt Count 330 MPV 8.4 Immature Gran % (Auto) 0.500 Neut % (Auto) 71.4 H Lymph % (Auto) 16.9 L [place] % (Auto) 8.8 Eos % (Auto) 2.1 Baso % (Auto) 0.3 Absolute Neuts (auto) 4.5 Absolute Lymphs (auto) 1.07 Nucleated RBC % 0 Discharge Diet: - - Tube feeds Discharge Activity: No Restrictions Call your doctor if your incision/area has: Continuous Slow Oozing, Sudden Increased Bleeding, Increased Pain/ Swelling, Increased Redness, Foul Smelling Discharge, Swelling at the incision site Call your doctor if you observe: Fever of 101 or Higher Home Medications: Medications to take at Discharge multivitamin tablet 1 tab PO DAILY 01/01/19 L.acidoph,Paracasei, B.lactis [Probiotic] 1 ea PO DAILY 01/18/19 Aspirin 325 mg PO DAILY@0800 tab 01/25/19 Jevity 1.5 100 ml GT 5X/DAY #8 bottle 01/25/19 Pantoprazole Sodium [Protonix] 20 mg PO BID 30 Days #60 tab 01/25/19 Following Prescrptions Were Given to Patient: Jevity 1.5 100 ml GT 5X/DAY #8 bottle Transmission Status: Received by [facility] Pantoprazole Sodium [Protonix] 20 mg PO BID 30 Days #60 tab Transmission Status: Received by [facility] Primary Care Physician: Gabriel Proctor MD [Primary Care Provider] - Please Follow Up With: Ervin Salomon MD When: Follow up as scheduled on 01/30 Disposition: Home Patient Condition:: Stable Medical Necessity - Tobacco Use Smoking Status: Never smoker Tobacco Use: Non-smoker Meaningful Use Info Meaningful Use Diagnoses (Choose all that apply): None applicable
[2019-01-25 08:00] VITALS: PULSE 106
--- NOTE | 2019-01-25 08:41 | PCM.PN.HOSP ---
Patient Problems: Active and Suspected Problems (Last Reviewed 01/20/19 @ 22:54 by Isaiah Sim MD) Constipation (Acute) Aspiration pneumonia (Acute) Acute bronchitis (Acute) Subjective: CC; aspiration pneumonia 69-year-old lady who underwent jejunostomy tube placement as a result of gastric outlet obstruction. The hospitalist service was consulted for management of hypoxia patient was found to have aspiration pneumonia. Plan is for patient to be assessed for home oxygen needs prior to going home. Objective: GENERAL: cooperative HEENT: Atraumatic; moist oral mucosa EYES; Anicteric, Normal Conjunctiva NECK; supple, normal thyroid, RESPIRATORY: Diminished to auscultation CARDIOVASCULAR: Regular S1 S2, GI: soft, non-tender, normoactive bowel sounds, : No Renal angle tenderness; EXTREMITIES: No edema, no clubbing, NEURO: Awake; no lateralizing signs. SKIN: No Rash PSYCH; Normal affect Vitals/I&O's: Vital Signs Temp Pulse Resp BP Pulse Ox 97.5 F L 90 14 130/71 H 95 01/25/19 03:00 01/25/19 07:08 01/25/19 07:08 01/25/19 03:00 01/25/19 07:08 Oxygen Flow Rate (L/min) [ 3 AMBULATION with Oxygen] Oxygen Flow Rate (L/min) 2 Oxygen Delivery Method Room Air Weight: 76 kg Body Mass Index (BMI) 30.8 Intake and Output for Last 24 Hours 01/23/19 01/24/19 01/25/19 23:59 23:59 23:59 Intake Total 1003.38 / 1003.38 1842.12 / 1842.12 350 / 350 Output Total 2 / 2 Balance 1001.38 / 1001.38 1842.12 / 1842.12 350 / 350 Microbiology Past 72 Hours 01/24/19 09:40 Stool C. difficile DNA Amplification - Final Laboratory Results 01/24/19 14:20: WBC 6.3, RBC 3.83 L, Hgb 11.3 L, Hct 34.7 L, MCV 90.6, MCH 29.5, MCHC 32.6, RDW Std Deviation 44.0 H, RDW Coeff of Yessi 13.3, Plt Count 330, MPV 8.4, Immature Gran % (Auto) 0.500, Neut % (Auto) 71.4 H, Lymph % (Auto) 16.9 L, Prowers % (Auto) 8.8, Eos % (Auto) 2.1, Baso % (Auto) 0.3, Absolute Neuts (auto) 4.5, Absolute Lymphs (auto) 1.07, Nucleated RBC % 0 Current Medications Acetaminophen (Tylenol) 650 mg PO Q6H PRN PRN PRN Reason: PAIN Last Admin: 01/24/19 20:26 Dose: 650 mg Documented by: Albuterol Sulfate (Ventolin Aerosols) 2.5 mg INHALATION Q2H PRN PRN PRN Reason: sob/wheezing Last Admin: 01/21/19 22:04 Dose: 2.5 mg Documented by: Albuterol/Ipratropium (Duoneb) 3 ml INHALATION Q4HWA.RT [facility] Last Admin: 01/25/19 07:08 Dose: 3 ml Documented by: Amoxicillin/Clavulanate Potassium (Augmentin Tablet) 875 mg PO BID [facility] Last Admin: 01/24/19 21:19 Dose: 875 mg Documented by: Aspirin (Aspirin) 325 mg PO DAILY@0800 [facility] Last Admin: 01/22/19 09:10 Dose: 325 mg Documented by: Calcium Carbonate (Tums) 1,000 mg PO Q6H PRN PRN PRN Reason: INDIGESTION Last Admin: 01/22/19 03:02 Dose: 1,000 mg Documented by: Enoxaparin Sodium (Lovenox) 40 mg SC DAILY [facility] Last Admin: 01/24/19 08:58 Dose: 40 mg Documented by: Enteral Nutritional Formula (Jevity 1.5) 100 ml GT 5X/DAY [facility] Last Admin: 01/25/19 05:35 Dose: 100 ml Documented by: Sodium Chloride () 250 mls @ 15 mls/hr IV .[id number] PRN PRN Reason: SALINE FLUSH Last Infusion: 01/24/19 23:55 Dose: 0 mls/hr Documented by: Loperamide HCl (Imodium) 4 mg PO Q6H PRN PRN PRN Reason: Diarrhea Last Admin: 01/25/19 05:45 Dose: 4 mg Documented by: Melatonin (Melatonin) 10 mg PO QHS [facility] Last Admin: 01/24/19 21:19 Dose: 10 mg Documented by: Morphine Sulfate () 1 - 2 mg IV Q2H PRN PRN PRN Reason: SEVERE PAIN (6-10/10) Last Admin: 01/24/19 05:53 Dose: 2 mg Documented by: Ondansetron HCl (Zofran) 4 mg IV Q6H PRN PRN PRN Reason: NAUSEA/VOMITING Pantoprazole Sodium (Protonix) 20 mg PO BID YONNY Last Admin: 01/24/19 21:19 Dose: 20 mg Documented by: Sodium Chloride () 10 - 40 ml IV UD PRN PRN Reason: SALINE FLUSH Last Admin: 01/24/19 05:53 Dose: 30 ml Documented by: Sodium Chloride () 10 - 40 ml IV UD PRN PRN Reason: SALINE FLUSH Medical Necessity - Tobacco Use Smoking Status: Never smoker Tobacco Use: Non-smoker Assessment/Plan All Active Problems (Last Reviewed 01/20/19 @ 22:54 by Isaiah Sim MD) Cholelithiasis (Acute) Hypoxemia (Acute) Constipation (Acute) Aspiration pneumonia (Acute) Acute bronchitis (Acute) 69-year-old lady who underwent jejunostomy tube placement as a result of gastric outlet obstruction. The hospitalist service was consulted for management of hypoxia patient was found to have aspiration pneumonia. Plan is for patient to be assessed for home oxygen needs prior to going home. 1. Aspiration pneumonia patient management Augmentin as well as supplemental oxygen plan is for patient to be assessed for home oxygen needs prior to discharge 2. Gastric outlet obstruction secondary to pancreatitis following ERCP patient underwent jejunostomy placement by Dr. Salomon on 01/23/2019. 3. Diarrhea infectious etiology was ruled out attributed to patient to feed placed on Imodium 4. Obesity with BMI of 30.6 5. Hypokalemia corrected per protocol 6. DVT prophylaxis SC Lovenox Active Medications Acetaminophen (Tylenol) 650 mg PO Q6H PRN PRN PRN Reason: PAIN Last Admin: 01/24/19 20:26 Dose: 650 mg Documented by: Albuterol Sulfate (Ventolin Aerosols) 2.5 mg INHALATION Q2H PRN PRN PRN Reason: sob/wheezing Last Admin: 01/21/19 22:04 Dose: 2.5 mg Documented by: Albuterol/Ipratropium (Duoneb) 3 ml INHALATION Q4HWA.RT [facility] Last Admin: 01/25/19 07:08 Dose: 3 ml Documented by: Amoxicillin/Clavulanate Potassium (Augmentin Tablet) 875 mg PO BID [facility] Last Admin: 01/24/19 21:19 Dose: 875 mg Documented by: Aspirin (Aspirin) 325 mg PO DAILY@0800 [facility] Last Admin: 01/22/19 09:10 Dose: 325 mg Documented by: Calcium Carbonate (Tums) 1,000 mg PO Q6H PRN PRN PRN Reason: INDIGESTION Last Admin: 01/22/19 03:02 Dose: 1,000 mg Documented by: Enoxaparin Sodium (Lovenox) 40 mg SC DAILY [facility] Last Admin: 01/24/19 08:58 Dose: 40 mg Documented by: Enteral Nutritional Formula (Jevity 1.5) 100 ml GT 5X/DAY [facility] Last Admin: 01/25/19 05:35 Dose: 100 ml Documented by: Sodium Chloride () 250 mls @ 15 mls/hr IV .[id number] PRN PRN Reason: SALINE FLUSH Last Infusion: 01/24/19 23:55 Dose: 0 mls/hr Documented by: Loperamide HCl (Imodium) 4 mg PO Q6H PRN PRN PRN Reason: Diarrhea Last Admin: 01/25/19 05:45 Dose: 4 mg Documented by: Melatonin (Melatonin) 10 mg PO QHS [facility] Last Admin: 01/24/19 21:19 Dose: 10 mg Documented by: Morphine Sulfate () 1 - 2 mg IV Q2H PRN PRN PRN Reason: SEVERE PAIN (6-10/10) Last Admin: 01/24/19 05:53 Dose: 2 mg Documented by: Ondansetron HCl (Zofran) 4 mg IV Q6H PRN PRN PRN Reason: NAUSEA/VOMITING Pantoprazole Sodium (Protonix) 20 mg PO BID [facility] Last Admin: 01/24/19 21:19 Dose: 20 mg Documented by: Sodium Chloride () 10 - 40 ml IV UD PRN PRN Reason: SALINE FLUSH Last Admin: 01/24/19 05:53 Dose: 30 ml Documented by: Sodium Chloride () 10 - 40 ml IV UD PRN PRN Reason: SALINE FLUSH Code Visit Inpatient E&M: 19365 Subs Hosp L2
[2019-01-25 08:47] VITALS: BP 116/79; PULSE 89; RESP 18; TEMP 36.7; O2SAT 93
[2019-01-25 09:10] VITALS: O2SAT 88; O2SAT 92; O2SAT 94
[2019-01-25] MEDS: Enoxaparin 40 MG/0.4 ML Syringe SC (09:15)
[2019-01-25] MEDS: Amox/Clavulanate 875 MG Tablet PO (09:15)
[2019-01-25] MEDS: Aspirin 325 MG Tablet PO (09:15)
[2019-01-25] MEDS: Pantoprazole Sodium 20 MG Tablet PO (09:17)
[2019-01-25] MEDS: Acetaminophen 325 MG Tablet 650 MG PO (09:24)
--- NOTE | 2019-01-25 09:29 | CASEMGMT ---
Pt is only requiring 2liters home oxygen at discharge at this time. Order updated and [place] [facility] Call to Marii at [facility] [place] and she is updated at this time. Pt already had tank delivered to room yesterday. Heriberto in [facility] retail pharmacy is aware that pt to be discharged today and that tube feed/syringe order was faxed yesterday to pharmacy. Heriberto aware to call this RN SCOTT back with any questions/concerns, voices understanding. Eric RN CM
== END 2019-01-25 11:40 | disposition home or self-care (01) | DRG 380 ==
LOC: EN 13:33 → PCU 01-20 06:04
PROVIDERS: Hospitalist; Internal Medicine; Admitting Provider Surgery; Visit Provider Internal Medicine
PROC: 0DJD8ZZ Inspection of Lower Intestinal Tract, Via Natural or Artificial Opening Endoscopic (ICD-10-PCS; CPT 45378; principal; 2019-01-19 10:25)
PROC: 0DJ08ZZ Inspection of Upper Intestinal Tract, Via Natural or Artificial Opening Endoscopic (ICD-10-PCS; CPT 43235; principal; 2019-01-23 10:55)
DX: K31.1 Adult hypertrophic pyloric stenosis (principal); J69.0 Pneumonitis due to inhalation of food and vomit; K85.90 Acute pancreatitis without necrosis or infection, unspecified; E44.0 Moderate protein-calorie malnutrition; Z90.49 Acquired absence of other specified parts of digestive tract; E87.6 Hypokalemia; Z68.30 Body mass index [BMI] 30.0-30.9, adult; E66.9 Obesity, unspecified; J20.9 Acute bronchitis, unspecified
CPT/HCPCS: 36415; 36600; 71045; 71046; 74018; 74177; 80048; 80053; 82803; 83605; 83690; 83735; 84100; 84132; 85025; 85027; 87493; 87641; 94640; 94762; 97802; 97803; J7030; J7050; J7120; Q9967; A4216; J1940; J2405

== ENCOUNTER → 2019-02-08 15:52 | Outpatient (CLI) | payer OTHER, SELFPAY ==
[2019-01-19 13:24] VITALS: BMI 30.8
== END ==
PROVIDERS: Visit Provider Surgery
DX: T85.848A Pain due to other internal prosthetic devices, implants and grafts, initial encounter (principal)
CPT/HCPCS: 87070; 87075; 87077; 87186; 87205

== ENCOUNTER 2019-02-15 15:48 | Emergency (ER) | payer OTHER, SELFPAY ==
[2019-01-19 13:24] VITALS: BMI 30.8
[2019-02-15 15:53] VITALS: BP 144/84; PULSE 99; RESP 25; TEMP 36.8; O2SAT 90; BMI 29.9
--- NOTE | 2019-02-15 16:05 | ED.RN ---
PEG tube leaking yellowish-green fluid. Pt reported finishing ATB for infection at PEG site last night. T: 98.3 (O).
--- NOTE | 2019-02-15 16:11 | CT_ITS ---
STUDY: CT ABDOMEN AND PELVIS WITH CONTRAST REASON FOR EXAM: Female, 69 years old. Right lower quadrant pain. History of cholecystectomy in early December with complications. Just finished antibiotics for infected PEG tube. RADIATION DOSAGE (If Supplied By Facility): CTDIvol = ( 17.77 ) mGy, DLP = ( 948.90 ) mGycm TECHNIQUE: Transaxial images were obtained from the dome of the diaphragm to the symphysis pubis with oral contrast. 100ML IV/Oral Isovue 300 was administered. Sagittal and coronal images were reconstructed. Individualized dose optimization techniques were used for this CT. COMPARISON: January 19, 2019. FINDINGS: The visualized lung bases are unremarkable. The visualized portions of the heart are within normal limits. Normal liver. There is evidence of mild intrahepatic biliary ductal dilatation with evidence of pneumobilia. Gallbladder is absent. There is prominent CBD containing droplets of air. There is this tapers at the pancreatic head. Normal spleen. There are low-attenuation foci in the neck of the gallbladder as well as within the uncinate process. The uncinate collection measures 1.8 x 1.6 x 3 cm. The collection in the pancreatic neck measures 1.8 x 3 x 3.6 cm. Remainder of the pancreas appears normal. No pancreatic ductal dilatation. Normal bilateral adrenal glands. Normal right kidney. Normal left kidney. Normal visualized ureters. Stomach is normal in appearance. There is a gastrojejunostomy entering through the body of the stomach. The tube extends downward into the proximal jejunum. There is irregular low attenuation area arising from the underside of the second portion of the duodenum which extends downward and laterally to connect with a large fluid collection in the right paracolic gutter. The entire area measures approximately 11.8 x 13.9 x 8.9 cm. Inferiorly this extends downward to just above the inguinal canal. Laterally this also extends up the underside of the ascending colon. Posteriorly this extends upward lateral to the psoas into the retroperitoneal soft tissues posterior to the lower pole of the right kidney. Kidney. Otherwise normal small intestine. There is sigmoid diverticuli. The proximal colon is grossly unremarkable. The appendix is visualized and appears normal. There is diffuse atherosclerotic calcification of the abdominal aorta, without a demonstrated aneurysm. Normal inferior vena cava. Normal retroperitoneum. Normal urinary bladder. No normal uterus and ovaries. There is no pelvic lymphadenopathy. No free air or free fluid is seen within the peritoneal cavity. There is diastases of the rectus muscle above the level of the umbilicus. The abdominal wall is otherwise normal. There are diffuse degenerative changes of the visualized lumbar spine. CT/Abdomen/Pelvis WITH Contrast IMPRESSION: 1. Larger right sided inflammatory collection in the right retroperitoneum and pelvis appears slightly enlarged and better defined than on the previous examination although its distribution is similar. 2. Decreasing inflammatory changes about the pancreas with 2 residual fluid densities in the uncinate and pancreatic neck. 3. New gastrojejunostomy tube. 4. Minimal air now seen within the bile ducts. Question sphincterotomy versus infection. 5. Resolution of the lingular infiltrate seen on the previous study.. Electronically Signed: Julio Patel DO at 18:42 EDT Tel [phone], Service support ,
--- NOTE | 2019-02-15 16:13 | ED.DCSUM_ITS ---
- ER Visit Summary Date of Service: 02/15/19 Chief Complaint: Abdominal pain History of Present Illness: The patient is a 69 F who presents with abdominal pain that began approximately 1-1/2 hours prior to arrival. Patient describes the pain as sharp. Patient states the pain is diffuse across her abdomen but is worse on the right. Patient admits to nausea but denies any vomiting. Patient denies any diarrhea, melena, or hematochezia. Patient has a PEG tube in and her tube feeds normally cause her some loose stools however there has been no change in her stools. Patient denies any dysuria or hematuria. She admits to subjective chills but denies any fevers. Patient denies any chest pain or shor tness of breath. Physical Examination: Vital signs are stable. Patient is afebrile. Patient is in no acute distress. Oral mucosa is pink and moist. Neck is supple. Trachea is midline. There is no JVD noted. Heart was regular rate and rhythm. Lungs are clear and equal bilateral. Abdomen is soft. Bowel sounds are normal. There is tenderness over the right upper and right lower quadrant. There is also some mild tenderness in the epigastric area around the PEG tube site. There is no erythema, discharge or drainage from the PEG tube site. Cranial nerves II through XII are intact. There are no focal motor or sensory deficits noted. Test Results: CBC and comprehensive metabolic profile were obtained and were essentially within normal limits. Alk phos was slightly elevated at 201 and AST was elevated at 101. The remaining labs are within normal limits. CT scan of the abdomen and pelvis was obtained. There is a larger right-sided inflammatory collection in the right retroperitoneum that is slightly enlarged and better defined on previous examination. There is minimal air in the bile ducts. There is decreasing inflammatory changes within the pancreas. This was interpreted by the radiologist and reviewed by myself. Emergency Department Course and Treatment: Patient was given IV fluids. Patient was given an injection of morphine. Patient was feeling better on reevaluation. Patient was instructed to continue her tube feedings as prescribed. Patient was instructed to follow-up with her primary care physician and surgeon as scheduled. Patient understood and was agreeable with the plan. All questions were answered. Disposition: Discharge home Impression: Abdominal pain This note was generated with [employer] dictation software. It may contain incorrect words, spelling, and punctuation that were not noted in review of the chart prior to signing ED Disposition - Plan for ED Patient: Disposition: Home or Assisted Living Diagnosis: Abdominal pain Instructions: ABDOMINAL PAIN, Unknown Cause, (Female) Referrals: Gabriel Proctor MD [Primary Care Provider] - 3-5 Days
[2019-02-15] MEDS: Morphine 4 MG/ML Syringe IV (16:17)
[2019-02-15] MEDS: 0.9% Normal Saline 1,000 ML 1000 ML IV (16:17)
[2019-02-15 16:31] LABS: Absolute Lymphocyte Count 0.92 X10^3/uL (0.83-4.51); Absolute Neutrophil Count 6.2 X10^3/uL (2.0-7.7); Basophil# 0.02 X10^3/uL; Basophil% 0.2 % (0-1); Eosinophil# 0.12 X10^3/uL; Eosinophils% 1.5 % (0-5); Hematocrit 36.4 % (37-47); Lymphocyte # 0.92 X10^3/ul (4.0); Lymphocyte % 11.3 % (19-41); Mean Corpuscular Hgb 29.5 pg (27.0-32.0); Mean Corpuscular Volume 89.4 fL (81-99); Monocyte# 0.81 X10^3/uL; NRBC Flagged by Analyzer 0 % (0-5); Neutrophil # 6.24 X10^3/uL (2.7-7.7); Neutrophil % 76.6 % (47-70); Platelet Count 344 K/mm3 (150-450); RBC Distribution Width CV 13.5 % (11.6-14.6); Red Blood Count 4.07 M/mm3 (4.2-5.4); White Blood Count 8.1 K/mm3 (4.4-11.0)
[2019-02-15 16:46] LABS: BUN 7 mg/dL (7-18); Creatinine, Serum 0.66 mg/dL (0.55-1.02); EST Glomerular Filtration Rate 95 mL/min (>60); Estimated Creatinine Clearance 42.59 ml/min; Glucose 108 mg/dL (74-106)
[2019-02-15 16:47] LABS: ALB/GLOB Ratio 0.5 RATIO (0.9-2.4); AST(SGOT) 101 U/L (15-37); Alanine Aminotransfer ALT/SGPT 48 U/L (13-56); Albumin, Serum 2.6 g/dL (3.2-5.0); Alkaline Phosphatase 201 U/L (45-117); Anion Gap 7 (5-15); BUN/Creat Ratio 10.6 RATIO (10-20); Calcium,Total 9.2 mg/dL (8.5-10.1); Chloride 104 mmol/L (98-107); Est Glom Filt Rate - Afr Amer 115 mL/min (>60); Globulin 4.8 g/dL (2.2-4.2); Lipase 340 U/L (73-393); Potassium 4.1 mmol/L (3.5-5.1); Protein, Total 7.4 g/dL (6.4-8.2); Sodium Level 138 mmol/L (136-145)
[2019-02-15 17:52] VITALS: BP 124/79; PULSE 96; RESP 16; O2SAT 95
[2019-02-15 19:07] VITALS: BP 129/77; PULSE 90; RESP 16; O2SAT 92
[2019-02-15 20:48] VITALS: BP 136/72; PULSE 90; RESP 18; O2SAT 94
[2019-02-15 21:15] VITALS: BP 139/81; PULSE 77; RESP 14; O2SAT 94
== END 2019-02-15 21:39 | disposition home or self-care (01) ==
PROVIDERS: Emergency Provider Emergency Medicine
DX: R10.11 Right upper quadrant pain (principal); R10.31 Right lower quadrant pain; Z93.1 Gastrostomy status
CPT/HCPCS: 74177; 80053; 83690; 85025; 96361; 96374; 99285; J7030; Q9967; A4216

== ENCOUNTER → 2019-02-20 13:06 | Outpatient (CLI) | payer OTHER, SELFPAY ==
[2019-01-19 13:24] VITALS: BMI 30.8
[2019-02-15 15:53] VITALS: BMI 29.9
[2019-02-20] VITALS (10 sets, daily range): BP systolic 114–140; BP diastolic 60–98; PULSE 82–101; RESP 16–24; TEMP 36.9; O2SAT 94–97; BMI 28.3
--- NOTE | 2019-02-20 13:07 | CT_ITS ---
PROCEDURE: CT DIRECTED ABSCESS DRAINAGE, PERITONEAL DATE OF EXAMINATION: February 20, 2019 INDICATION: Female, 69 years old. Right pelvic abscess following surgery. PHYSICIAN: Ihsan Fuentes M.D. CONSENT: Written informed consent was obtained having explained the risks, benefits and alternatives in detail with the patient who accepted the risks and agreed to proceed. Laboratory review and clinical assessment was performed. CONSCIOUS SEDATION PROTOCOL: The Drugs used were: 2 mg Versed, IV., and 50 mcg Fentanyl, IV. The sedation time was: 16 minutes. Conscious sedation was started at 2:34 PM and terminated at 2:50 PM. The conscious sedation protocol was independently monitored. RADIATION DOSAGE (If Supplied By Facility): CTDIvol = ( 19 ) mGy, DLP = ( 733.31 ) mGycm TECHNIQUE: CT sections were made through the abdomen and pelvis revealing an abscess in the right lower quadrant and right hemipelvis. The skin surface was prepped and draped in a sterile fashion. An 8.5 Georgian Drainage catheter was then inserted into the collection and formed into position. Additional fluid was aspirated for a total of approximately 100 cc of cloudy brown fluid. The catheter was sutured into position to allow for continued drainage. Followup CT sections reveals good position of the catheter. CT/CT Guidance Abscess Drg w/Cath IMPRESSION: 1. CT directed drainage of a fluid collection using CT image guidance and image documentation as described. 2. Conscious Sedation protocol utilized with independent monitoring Electronically Signed: Ihsan Fuentes, at 15:19 EDT , Service support ,
[2019-02-20 13:36] LABS: Prothrombin Time (Protime)PT. 12.9 SECONDS (11.7-14.9)
[2019-02-20] MEDS: Midazolam 2 MG/2 ML Syringe IV (14:34)
[2019-02-20] MEDS: fentaNYL 100 MCG/2 ML Ampul IV (14:35)
== END ==
PROVIDERS: Referring Provider Surgery; Visit Provider Surgery
DX: R18.8 Other ascites (principal); T85.848A Pain due to other internal prosthetic devices, implants and grafts, initial encounter
CPT/HCPCS: 36415; 75989; 85610; 85730; 87070; 87075; 87077; 87186; 87205; 99156; 99157; J7040; A4216

== ENCOUNTER → 2019-03-09 08:17 | Outpatient (CLI) | payer SELFPAY ==
[2019-02-20 13:38] VITALS: BMI 28.3
--- NOTE | 2019-03-09 08:20 | CT_ITS ---
STUDY: CT ABDOMEN AND PELVIS WITH CONTRAST REASON FOR EXAM: Female, 69 years old. Recheck right retroperitoneal abscesses RADIATION DOSAGE (If Supplied By Facility): CTDIvol = ( 13.42 ) mGy, DLP = ( 806.41 ) mGycm TECHNIQUE: Transaxial images were obtained from the dome of the diaphragm to the symphysis pubis with oral contrast. Oral and amp; IV Readi-CAT and amp; 100mL Isovue-300 100 was administered. Sagittal and coronal images were reconstructed. Individualized dose optimization techniques were used for this CT. COMPARISON: Prior CT scan of the abdomen post gadolinium 02/20/2019, prior CT scan of the abdomen and pelvis obtained on 02/15/2019. FINDINGS: The visualized lung bases are unremarkable. The visualized portions of the heart are within normal limits. Air is noted in the biliary tree. This was seen previously. Also noted is a small area of decreased attenuation measuring about 1 cm in size in the anterior aspect of right liver which was previously identified and is unchanged and could represent a liver cyst, or hemangioma. The spleen is normal. The adrenal glands are normal. The body and tail the pancreas appearing normal. In the head of the pancreas surrounding the passing splenic vein are 2 cystic appearing type structures which appear to have decreased by at least 50% in size when compared with the previous CT scan obtained on 02/15/2019. These could represent resolving pseudocyst versus resolving abscesses. Additional larger fluid collection is noted off the inferior aspect of the enhancing portion of the pancreas which was noted previously and is unchanged in size. This now measures about 4.8 x 3.8 cm in maximal AP and transverse dimension. The kidneys are normal with no evidence of calyceal calculi, masses, or obstructive uropathy seen. The abdominal aorta appears to be normal and no periaortic lymphadenopathy is seen. There are multiple loculated fluid collections noted along the right flank predominantly in the retroperitoneum and an abscess drainage catheter is noted in place in the largest of these fluid collections adjacent to the right innominate bone. These loculated fluid collections appear to have mildly decreased in size when compared with the previous CT scan of the abdomen and pelvis obtained on 02/15/2019. It must be noted that the patient also has a gastrostomy tube in place extending into the body of the stomach with the tube extending inferiorly into the fourth portion of the proximal jejunum. A CT scan of the pelvis was performed and shows the common iliac vessels, external iliac vessels and common femoral vessels to be normal along their course and distribution. The abscessed pocket/fluid collections which are loculated extending inferiorly into the right pelvis along the lateral aspect of the right external iliac artery and vein. Sigmoid diverticulosis is identified. The uterus is visualized. Bone scanning windows of the lumbar spine and pelvis were reviewed in coronal and sagittal planes appear to be normal. CT/Abdomen/Pelvis WITH Contrast IMPRESSION: 1. A gastrostomy tube is noted in place with its tip extending into the proximal jejunum. 2. Air is again noted within the biliary tree. 3. An abscess drainage catheter is noted in place in this patient with multiple loculated fluid collections in the right retroperitoneum extending from the pancreas down into the right pelvis as described above. These fluid collections (abscesses?) have mildly decreased in size when compared with the prior CT scan of the abdomen and pelvis obtained on 02/15/2019. Electronically Signed: Polo Marie, at 9:27 EDT Tel , Service support ,
== END ==
PROVIDERS: Referring Provider Surgery; Visit Provider Surgery
DX: K85.90 Acute pancreatitis without necrosis or infection, unspecified (principal); Z87.898 Personal history of other specified conditions; Z93.1 Gastrostomy status
CPT/HCPCS: 74177; Q9967

== ENCOUNTER 2019-04-02 09:20 | Outpatient (RCR) | payer OTHER, SELFPAY ==
[2019-02-20 13:38] VITALS: BMI 28.3
[2019-04-02 09:32] LABS: Absolute Lymphocyte Count 1.17 X10^3/uL (0.83-4.51); Absolute Neutrophil Count 5.7 X10^3/uL (2.0-7.7); Basophil# 0.04 X10^3/uL; Basophil% 0.5 % (0-1); Eosinophil# 0.16 X10^3/uL; Eosinophils% 2.1 % (0-5); Hematocrit 29.5 % (37-47); Hemoglobin 9.1 g/dL (12.0-15.0); Lymphocyte # 1.17 X10^3/ul (4.0); Lymphocyte % 15.5 % (19-41); Mean Corp Hgb Conc 30.8 g/dL (32-36); Mean Corpuscular Hgb 28.3 pg (27.0-32.0); Mean Corpuscular Volume 91.9 fL (81-99); Mean Platelet Vol. 8.2 fl (6.2-12.0); Monocyte# 0.47 X10^3/uL; Monocyte% 6.2 % (0-10); NRBC Flagged by Analyzer 0 % (0-5); Neutrophil # 5.67 X10^3/uL (2.7-7.7); Neutrophil % 74.9 % (47-70); Platelet Count 478 K/mm3 (150-450); RBC Distribution Width CV 16.3 % (11.6-14.6); RBC Distribution Width SD 51.8 fl (35.1-43.9); Red Blood Count 3.21 M/mm3 (4.2-5.4); White Blood Count 7.6 K/mm3 (4.4-11.0)
[2019-04-02 09:50] LABS: AST(SGOT) 18 U/L (15-37); Alanine Aminotransfer ALT/SGPT 17 U/L (13-56); Albumin, Serum 2.2 g/dL (3.2-5.0); Alkaline Phosphatase 67 U/L (45-117); Bilirubin, Direct 0.06 mg/dL (0.00-0.30); Creatinine, Serum 0.49 mg/dL (0.55-1.02); EST Glomerular Filtration Rate 133 mL/min (>60); Est Glom Filt Rate - Afr Amer 161 mL/min (>60); Globulin 4.2 g/dL (2.2-4.2); Protein, Total 6.4 g/dL (6.4-8.2)
== END 2019-04-02 18:00 | disposition home or self-care (01) ==
LOC: HHLAB 09:20
PROVIDERS: Referring Provider Internal Medicine; Visit Provider Internal Medicine
DX: K85.92 Acute pancreatitis with infected necrosis, unspecified (principal)
CPT/HCPCS: 80076; 82565; 85025

== ENCOUNTER → 2019-07-30 10:12 | Outpatient (CLI) | payer SELFPAY, OTHER ==
[2019-02-20 13:38] VITALS: BMI 28.3
--- NOTE | 2019-07-30 10:13 | CT_ITS ---
STUDY: CT ABDOMEN AND PELVIS WITH CONTRAST REASON FOR EXAM: Female, 69 years old. PT STATED RT SIDE ABDOM PAIN, HX OF ABC SESS DRAINAGE, EDWARD RADIATION DOSAGE (If Supplied By Facility): CTDIvol = ( 15.38 ) mGy, DLP = ( 861.23 ) mGycm TECHNIQUE: Transaxial images were obtained from the dome of the diaphragm to the symphysis pubis without oral contrast. IV 100mL Isovue-300 was administered. Sagittal and coronal images were reconstructed. Individualized dose optimization techniques were used for this CT. COMPARISON: Comparison is made with prior study dated March 09, 2019. FINDINGS: Minimal increased linear markings at the lung bases suggestive of underlying atelectasis and/or mild scarring. The visualized portions of the heart are within normal limits. The previously seen percutaneous biliary catheter has been removed. Residual inflammatory changes persist overlying the right ileal psoas muscle. There is a persistent 1.9 cm x 2.3 cm rounded hypodensity with thickened crane in the anterior aspect of the left psoas muscle. This may represent a residual focal abscess. Pneumobilia. This most likely secondary to prior cholecystectomy and common bile duct exploration. Normal gallbladder and extrahepatic biliary system. Normal spleen. Normal pancreas. Normal bilateral adrenal glands. Normal right kidney. Normal left kidney. The previously seen pelvic tube has been removed. Normal small intestine. There are multiple colonic diverticula consistent with diverticulosis. There is non-visualization of the appendix. There is diffuse atherosclerotic calcification of the abdominal aorta, without a demonstrated aneurysm. Normal inferior vena cava. Normal retroperitoneum. Normal urinary bladder. There is evidence of a right-sided Spigalean hernia containing a nondilated portion of the ascending colon. Heterogeneous appearance of the lumbar vertebrae. This is unchanged. CT/Abdomen/Pelvis WITH Contrast IMPRESSION: Mild residual inflammatory changes seen in the right iliopsoas region as described. The previously seen percutaneous catheter has been removed. Right-sided speed daily and Spigalean hernia containing a nondilated portion of the descending colon. Pneumobilia. Electronically Signed: Ihsan Fuentes, at 13:54 EST , Service support ,
[2019-07-30 12:35] LABS: CREATININE FINGERSTICK < 0.6 mg/dL (0.55-1.02)
== END ==
PROVIDERS: Referring Provider Surgery; Visit Provider Surgery
DX: R10.9 Unspecified abdominal pain (principal)
CPT/HCPCS: 74177; Q9967

== ENCOUNTER 2021-07-27 09:56 | Day surgery (SDC) | payer SELFPAY, OTHER ==
--- NOTE | 2021-07-22 11:12 | EKG12_ITS ---
Test Reason : PREOP Blood Pressure : / mmHG Vent. Rate : 090 BPM Atrial Rate : 090 BPM P-R Int : 142 ms QRS Dur : 070 ms QT Int : 342 ms P-R-T Axes : 027 074 035 degrees QTc Int : 418 ms Normal sinus rhythm Normal ECG Confirmed by HIEU PEREIRA, RAMON ([id number]), photography editor ABDIRIZAK DENNY ([id number]) on 07/23/2021 8:24:25 AM Referred By: Polo Anderson Confirmed By:RAMON HAGEN MD
[2021-07-22 11:41] LABS: Hematocrit 44.4 % (37-47); Hemoglobin 15.2 g/dL (12.0-15.0); Mean Corp Hgb Conc 34.2 g/dL (32-36); Mean Corpuscular Hgb 32.4 pg (27.0-32.0); Mean Corpuscular Volume 94.7 fL (81-99); Mean Platelet Vol. 8.9 fl (6.2-12.0); Platelet Count 207 K/mm3 (150-450); RBC Distribution Width SD 48.6 fl (35.1-43.9); Red Blood Count 4.69 M/mm3 (4.2-5.4); White Blood Count 4.6 K/mm3 (4.4-11.0)
[2021-07-22 11:51] LABS: International Normalized Ratio 0.9; Prothrombin Time (Protime)PT. 11.9 SECONDS (11.7-14.9)
[2021-07-22 11:52] LABS: Partial Thromboplast Time 23.8 Seconds (24.1-36.2)
[2021-07-22 12:17] LABS: ALB/GLOB Ratio 1.1 RATIO (0.9-2.4); AST(SGOT) 26 U/L (15-37); Alanine Aminotransfer ALT/SGPT 27 U/L (13-56); Albumin, Serum 3.8 g/dL (3.2-5.0); Alkaline Phosphatase 61 U/L (45-117); Anion Gap 6 (5-15); BUN 15 mg/dL (7-18); BUN/Creat Ratio 16.6 RATIO (10-20); Calcium,Total 9.6 mg/dL (8.5-10.1); Chloride 106 mmol/L (98-107); EST Glomerular Filtration Rate 65 mL/min (>60); Est Glom Filt Rate - Afr Amer 79 mL/min (>60); Globulin 3.6 g/dL (2.2-4.2); Glucose 97 mg/dL (74-106); Protein, Total 7.4 g/dL (6.4-8.2); Sodium Level 140 mmol/L (136-145)
--- NOTE | 2021-07-26 15:31 | HP.PCM_ITS ---
History and Physical Date of Admission: 07/27/21 Surgical History and Physical Ruthie Ayon, a 71 year old female 4 2 0 0 5, presents for D and C and hysteroscopy on July 27, 2021. 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 Ruthie claims it started suddenly and has been present sporatic spotting last week. It occurs intermittantly. It is located in the vagina. Ruthie characterizes it to be non-radiating. Ruthie characterizes the quality cramping.; Ruthie characterizes the quality spotting. Severity is moderate and very concerned. MEDICATIONS HISTORY: Patient is also takin. No Meds ALLERGIES: No Known Allergies Infections - Chicken pox, Mumps and Measles Illnesses - Kidney Stones,Skin Cancer, Accidents - None Hospitalizations - see surgery Review of Systems: GENERAL - Denies fever, or chills SKIN - Denies skin changes EYES - Denies visual changes EARS - Denies difficulty hearing NOSE - Denies nasal congestion or bleeding MOUTH - Denies sore throat or difficulty swallowing NECK - Denies pain or swelling RESPIRATORY - Denies shortness of breath or wheezing CARDIOVASCULAR - Denies palpitations or chest pain GASTROINTESTINAL - Denies nausea, vomiting, diarrhea, constipation GENITOURINARY - Denies dysuria, frequency of urination, incontinence of urine MUSCULOSKELETAL - Denies joint or muscle pain NEUROLOGICAL - Denies localized numbness or weakness PSYCHIATRIC - Denies depression or anxiety ENDOCRINE - Denies heat or cold intolerance, weight loss or gain HEMATO-IMMUNOLOGIC - Denies excesive bleeding with cuts SOCIAL HISTORY: Alcohol Use - None Smoking - Never Diet - no special diet Lifestyle - moderate stress lifestyle and Exercise - active work Seat Belt Use - occasional 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 cholecystectomy, 2018 2. 2019 Hernia Repair PHYSICAL EXAM BP- 142/86 Sitting, Right arm, large cuff Weight- 201.6 lbs Height- 62 inch BMI:36.9 CONSTITUTIONAL - NAD, well nourished, and well developed SKIN - No rash, lesions, or ulcers HEENT - Normocephalic, PERRLA, EOMI NECK - No nodes, no nuchal rigidity and thyroid normal size and texture LYMPH NODES - Palpation of lymph nodes in neck and groins within normal limits LUNGS - CTA x2 without wheezes, crackles or rales CARDIAC - Regular rate and rhythm without rubs, murmurs, or gallops BREAST - No dominant masses, no tenderness, no axillary adenopathy, no nipple discharge, no skin changes ABDOMEN - Without hepatosplenomegaly, distention, masses, rebound, or guarding; normal bowel sounds; no hernias EXTREMITIES - No edema or calf tenderness NEUROLOGICAL - Cranial nerves II-XII grossly intact PSYCHIATRIC - A and O to time, place, person, mood and affect External Genitial Vagina - non-tender without lesions Urethra/Urethral Meatus - non-tender Bladder - non-tender Vagina - vaginal crane are pink and moist without loss of rugae and no evidence of atropy Cervix - without cervical motion tenderness and has normal size and features without evident lesions Uterus - 5-6 cm in size, mobile and nontender Adnexa - clear without massess or tenderness ASSESSMENT/PLAN: 1. Postmenopausal Bleeding Declines EMBx today. U/S showed 14 mm EM stripe. Will proceed with H/S and D and C. Discussed RBAs and all questions answered.
[2021-07-27] VITALS (7 sets, daily range): BP systolic 130–153; BP diastolic 81–93; PULSE 76–87; RESP 14–16; TEMP 36.4–36.6; O2SAT 92–96; BMI 36.6
[2021-07-27] MEDS: Lactated Ringers 1,000 ML 15 ML IV (10:49)
--- NOTE | 2021-07-27 11:56 | PCM.OPRPT ---
Report of Operation Date of Procedure: 07/27/21 Pre-Operative Diagnosis: Postmenopausal Bleeding Post-Operative Diagnosis: Postmenopausal Bleeding And Endometrial Polyp Surgery/Procedure Performed:: Fractional Dilation and Curettage, Diagnostic Hysteroscopy Description of Surgical Findings:: 8 cm endometrial cavity without fibroids present. 1 x 0.25 cm polyp arising from the left cornual area of the fundus of the uterus sent with endometrial curettings. Surgeon: Polo Anderson Type of Anesthesia: MAC Anesthesiologist: Mango Perez Specimen's removed: Endometrial curettings Estimated Blood Loss (mL): Minimal Fluids Replaced: Crystalloid Description of Procedure: Surgeon: Polo Anderson MD, FACOG Indications: This is a 71 year old patient who has the above diagnosis. The patient has been counseled regarding the risk and indications of this procedure including the possibility of bleeding, infection, and injury to surrounding structures such as bowel bladder. All questions were answered and we consider the patient well-informed. Procedure: The patient was taken to the operating room where after induction of general anesthesia, she was placed in the dorsolithotomy position and prepped and draped in the usual sterile fashion. Anterior cervix was grasped with the tenaculum and dilated to about 4-5 mm. A 3 mm hysteroscope was placed in the uterus of the above findings were noted. Cervix was dilated to about 7-8 mm and uterus was gently curetted removing all contents. Hysteroscope was reinserted and all material was noted to be removed. In the course of the procedure approximately 100 cc of saline distending media was used and virtually all of this was recovered. Patient tolerated procedure well was taken to recovery room in satisfactory condition sponge instrument and needle counts were all reportedly correct. Estimated blood loss for the case was minimal. Specimens to pathology was endometrial curettings and endocervical curettings Complications: None Grafts/Implants Used: None Complications None Admit VTE Documentation VTE Present on Admission: Yes VTE Mechan Device Prophylaxis: SCD's
--- NOTE | 2021-07-27 11:58 | PCM.DC ---
Discharge Instructions Diet Discharge Diet: No restrictions Activity Discharge Activity: Return to Normal Activity, May Shower and May Take a Tub Bath May resume sexual activity in: 1-2 weeks Additional Activity Instructions:: Nothing in vagina for 1 to 2 weeks. Okay the use ibuprofen or Tylenol per package directions for any cramping you may have over the next few days. Dressing / Incision Call your doctor if you observe: Fever of 101 or Higher, Inability to urinate and Inability to have a bowel movement Follow Up Care Please Follow Up With: Polo Anderson MD When: 2 to 3 weeks Test Results: Test results from this visit will be discussed in further detail at your follow-up appointment, if applicable. Discharge Plan Admission Primary Reason for Your Visit: Dilation and Curettage Attending Provider: Polo Anderson Primary Care Provider: Gabriel Zaman NP Discharge Orders/Prescriptions Prescriptions: No Action vitamin B6-vitamin E-magnesium Tablet 1 tab PO DAILY RF: 0 cholecalciferol (vitamin D3) [Vitamin D3] 50 mcg (2,000 unit) Capsule 50 mcg PO DAILY RF: 0 Probiotic 15 billion cell Capsule 1 cap PO QODAY RF: 0 Other Ambulatory Orders: 12 Lead EKG (Routine) Location: None Selected Ordered By: Dr. Polo Anderson Referrals / Follow Up: Gabriel Zaman MIRROR INSTALLER, MIRROR INSTALLER-C [Primary Care Provider] - Disposition Disposition (needs filled in before D/C Order can be placed): Home, Self Care
--- NOTE | 2021-07-28 | CER_PTH ---
PATIENT: ELIAS ALBARADO LOC: [facility] [place] U#:[id number] AGE/SX: 71/F ROOM: RE07/27/[address]: Dr. Polo Anderson MD : 1950 BED: DIS: 07/27/2021 SPEC #: [id number] RECD: 07/28/21 10:58 STATUS: ANJELICA KEVIN #: [id number] FARZANEH: 07/28/21 00:[address]: Polo Anderson DEPT: SURGICAL PATHOLOGY RECD BY: Jose Bonilla ENTERED: 07/28/21 10:59 SP TYPE: CERV OTHR DR: Gabriel Zaman, GROUNDS MAINTENANCE MANAGER-C Tissues: A - Uterine cervix, NOS B - Endometrium, NOS Procedures: Surgery Specimen Level IV HEADER OPERATION: Hysteroscopy, dilation and curettage PRE-OP DIAGNOSIS: Postmenopausal bleeding TISSUE SUBMITTED: A ? Endocervical curettings, B ? Endometrial curettings with polyp MICROSCOPIC DIAGNOSIS A. Endocervix, curettings: Strips of benign superficial endocervix. Rare detached squamous mucosa with changes suspicious for HPV cytopathic effect. See comment. B. Endometrial curettings with polyp: Polypoid fragments of simple cystic hyperplasia without atypia. AM:nan 07/29/2021 COMMENT A. Results from immunohistochemistry ([id number]) for surrogate HPV marker (p16) will be reported separately. Case has been reviewed in consultation with Dr. Mace who concurs with the above diagnosis. IDC:SJ MICROSCOPIC DESCRIPTION Slides are reviewed. GROSS DESCRIPTION A - Received in fixative is one container labeled with the patient's name and designated endocervical curettings. The specimen consists of multiple irregular fragments of benitez mucoid tissue that in aggregate measure 2 x 0.5 x 0.1 cm. The specimen is totally submitted in one cassette. B - Received in fixative is one container labeled with the patient's name and designated endocervical curettings with polyp. The specimen consists of multiple irregular fragments of benitez-pink polypoid tissue that in aggregate measure 2 x 1.5 x 0.3 cm. The specimen is totally submitted in one cassette. / YUNIER:nan 07/28/2021 TC:3 CPT: 89667 x2
--- NOTE | 2021-07-28 | IMM_PTH ---
PATIENT: ELIAS ALBARADO LOC: [facility] [place] U#:[id number] AGE/SX: 71/F ROOM: RE07/27/[address]: [address]. Polo Anderson MD : 1950 BED: DIS: 07/27/2021 SPEC #: [id number] RECD: 07/29/21 14:55 STATUS: ANJELICA [place] #: [id number] FARZANEH: 07/28/21 00:[address]: Polo Anderson DEPT: IMMUNOHISTOCHEMISTRY RECD BY: Jennifer Kelsey ENTERED: 07/29/21 14:56 SP TYPE: IMMUNO OTHR DR: Gabriel Zaman, HITCH TECHNICIAN-C Tissues: A - Endocervical Procedures: p16 (initial) KI-67 (add) PHYSICIAN & INSTITUTION [place] [id number] SPECIMEN INFORMATION: Tissue Source: A ? Endocervical curettings Clinical Info: Postmenopausal bleeding Specimen Number: [id number] CPT code: 88616, 92937 METHODOLOGY: Deparaffinized sections of prefer/formalin-fixed tissue or PAP/DQ stained slides are incubated with monoclonal/polyclonal antibodies/oligonucleotide probes. Localization is made via biotin free immunoperoxidase method. Appropriate controls are performed and reacted as expected. Results on target cell population are indicated in the following table: RESULTS: ANTIBODY / CLONE RESULT Block A P16 (E6H4) positive, focal, patchy Ki-67 (30-9) positive, low These tests were developed and their performance characteristics determined by [facility]. They may not have been cleared or approved by the U.S. Food and Drug Administration. The FDA has determined that such clearance or approval is not necessary. The above immunohistochemical/dualISH markers are ordered and reviewed by the Pathologist. INTERPRETATION: A. Endocervical curettings: Squamous mucosa suspicious for HPV change. AM:nan 07/30/2021
== END 2021-07-27 23:59 | disposition home or self-care (01) ==
LOC: SDC 09:58 → AC 09:58
PROVIDERS: PCP Nurse Practitioner Family; Referring Provider Obstetrics & Gynecology; Visit Provider Obstetrics & Gynecology
PROC: 0UDB8ZZ Extraction of Endometrium, Via Natural or Artificial Opening Endoscopic (ICD-10-PCS; CPT 58558; principal; 2021-07-27 11:40)
DX: N95.0 Postmenopausal bleeding (principal); N85.01 Benign endometrial hyperplasia; Z20.822 Contact with and (suspected) exposure to COVID-19
CPT/HCPCS: 58558; 00952; 36415; 80053; 85027; 85610; 85730; 86850; 86900; 86901; 87426; 88305; 88341; 88342; 93005; C9803; J7120; J2405

== ENCOUNTER → 2021-08-19 07:51 | Outpatient (CLI) | payer SELFPAY, OTHER ==
--- NOTE | 2021-08-19 07:53 | VDLE_ITS ---
Reason For Study: Right leg pain RIGHT GSV is normal. CFV is compressible, spontaneous, phasic, competent and demonstrates normal augmentation. FV is compressible, spontaneous, phasic, competent and demonstrates normal augmentation. FV mid-distal visualized with color only, unable to tolerate compression. POP V is compressible, spontaneous, phasic, competent and demonstrates normal augmentation. T/P Trunk is compressible. PTV is compressible. RT PerV is compressible. Procedure This is a venous duplex using B-mode, color flow and spectral Doppler. Exam performed in department. A preliminary report was called and/or faxed to [facility]. VL/Venous Duplex US, Unilateral Interpretation Summary Deep veins of the right lower extremity are patent segmentally. There is no yvan dence of right lower extremity deep vein thrombosis. Valvular competence appears intact within the p roximal deep venous system on the right . The right great saphenous vein appears patent and ten sible segmentally. Ordering Physician: DIEGO NGUYEN Referring Physician: Gabriel Zaman Performed By: Tali Blackwell RVT
== END ==
PROVIDERS: PCP Nurse Practitioner Family
DX: M79.604 Pain in right leg (principal); M48.061 Spinal stenosis, lumbar region without neurogenic claudication; M51.37 Other intervertebral disc degeneration, lumbosacral region; M43.16 Spondylolisthesis, lumbar region
CPT/HCPCS: 93971

== ENCOUNTER → 2022-01-04 | Outpatient (CLI) | payer SELFPAY, OTHER ==
--- NOTE | 2022-01-04 07:13 | MRI_ITS ---
HISTORY: STENOSIS OF LATERAL RECESS OF LUMBAR SPINE. TECHNIQUE: Multiplanar and multisequence MR images of the lumbar spine were obtained without intravenous contrast. 120 images. COMPARISON: CT abdomen and pelvis 07/30/2019. FINDINGS: VERTEBRAE: Vertebral body heights maintained. Degenerative bone marrow endplate changes of L3-4 and L5-S1. ALIGNMENT: No significant anterior or posterior subluxation. CONUS: Normal pathology in position of the conus medullaris at L1. INTERVERTEBRAL DISCS: T12-L1, L1-2: Minimal posterior disc bulge osteophyte complexes and facet arthropathy without significant central canal stenosis or foraminal narrowing. L2-3: Mild posterior disc bulge osteophyte complex eccentric to the right resulting in minimal narrowing of the thecal sac and moderate right foraminal narrowing. L3-4: Mild posterior disc bulge osteophyte complex with facet arthropathy superimposed on developmentally short pedicles resulting in moderate central canal stenosis and mild bilateral foraminal narrowing. L4-5: Minimal posterior disc bulge osteophyte complex with facet arthropathy resulting in mild bilateral foraminal narrowing. No significant central canal stenosis. L5-S1: Mild posterior disc bulge osteophyte complex with facet arthropathy resulting in mild bilateral foraminal narrowing. No significant central canal stenosis. SOFT TISSUES: Mild posterior subcutaneous edema. Small left renal sinus cysts. MRI/Spine Lumbar (Routine) IMPRESSION: Multilevel degenerative disc disease resulting in moderate right foraminal narrowing at L2-3 and moderate spinal canal stenosis at L3-4. Electronically Signed: Mandi Dumont MD at 10:06 EDT ,
== END | disposition home or self-care (01) ==
PROVIDERS: PCP Nurse Practitioner Family
DX: M48.061 Spinal stenosis, lumbar region without neurogenic claudication (principal)
CPT/HCPCS: 72148

== ENCOUNTER 2022-05-17 10:30 | Outpatient (RCR) | payer SELFPAY, OTHER ==
--- NOTE | 2022-03-31 10:02 | HP.PTEVAL ---
Patient's Visit Information ELIAS ALBARADO is a 72 year old F referred to Physical Therapy by JAM GONZALEZ with a diagnosis of SPONDYLOLISYHESIS LUMBAR REGION. Date of Evaluation: 03/31/22 Physical Therapist: Reji Clemente, PT, Cert MDT, OCS - Visit Plan Frequency: 2x /Week Duration: 4 Weeks Plan: LUMBAR BRACE ON ALL TIMES EXCEPT SUPINE. PT INTEERVETIONS POSTURAL EX'S,DLS ,BLE STRENGTHENING ESPECIALLY RIGHT QUADS/HAMS ,LE FLEXABILITY AND CONDTIONING ,BODY MECHANICS TRAINING - Subjective This 72 y/o female presents to physical therapy for lumbar fusion. Patient underwent s/p lumbar fusion lumbar rods/screws Mar [address] Sanchez at [facility] . Patient was d/c on Mar 09 due to drain tube was high and medication. Patient was d/c with fww and lumbar and no lifting ,bending/twisting. Patient has had lumbar symptoms ~ 3 years with symptoms in legs . Currently patient c/o weakness in legs and burning in right leg and paresthesia left leg. Patient pain meds oxycodone. Aggravating walking /standing and has difficulty with sleeping. Alleviating factors pain MEDS. Patient had no prior PT. Patient symptoms where where gradual over time ,eventually had MRI showed stenosis. Patient goals to get stronger and no pain. RTD 4month. SOCAIL: - Pain Bilateral Back Pain Intensity (Out of 10): 4 Pain Intensity Range: 10 Right Lower Extremity Pain Intensity (Out of 10): 7 Pain Intensity Range: 10 - Objective POSTURE: mild forward posture. NEURO: c/o paresthesia/tingling left leg, burning right reflexes L3-4,,L4-5,L5-S1 1/3. FLEXABLITY: hamstrings min tight. GAIT: ambulate with fww with lumbar brace. LUMBAR ROM: flexion mod/severe loss ,extension mod /severe loss ,side gldes mod loss. MMT: ( peak force) right quads 16.9,hanstrings 15.9 ,hip flexion 8.5 ,left 4/5 quads/hams/hip - Special Tests L/S Slump test left side: Negative L/S Slump test right side: Negative L/S Left Straight Leg Raise: Negative L/S Right Straight Leg Raise: Negative - Balance/Special Test Scores Oswestry Low Back Score: 34 - Goals Goal 1:: I with HEP for back Goal Time Frame: 4-6 Weeks Goal 2:: Patient to demonstrate 50 % improvement with increase function and less pain Goal Time Frame: 4-6 Weeks Goal 3:: Patient to ambulate with normal arley no device. Goal Time Frame: 4-6 Weeks Goal 4:: Patient to improve lumbar ROM for function of recovery to put on shoes . Goal Time Frame: 4-6 Weeks Goal 5:: Patient to improve peak force right quads/hams and hip by 5-10 to improve gait Goal 6:: Patient to improve back oswestry score by 5 points or to improve QOL and function Goal Time Frame: 4-6 Weeks - Rehabilitation Potential Physical Therapy Diagnosis: This patient underwent s/p lumbar fusion with decrease gait ,weakness, decrease ROM of lumbar , impairs function with walking and standing impairs functional activity with ADL's Rehabilitation Potential: Good - Anticipated Interventions Patient/Client Instruction: Educate patient on: Condition, Plan of Care For the Purpose of:: To decrease pain, To increase ROM, To improve muscle performance and motor function, To improve ability to perform ADL's, To increase tolerance to activity/condition/position, To improve performance and independence with ADL's, To improve gait and locomotor functions, To improve health of tissue, To decrease soft tissue restriction, To increase flexibility/ROM, To improve tolerance to ADL's Therapeutic Exercise to Include: Strength training, Endurance training, Balance training, Body mechanics, Postural training, Flexibilty training, Dynamic Lumbar Stabilization Comment: BLE For the Purpose of:: To decrease pain, To increase ROM, To improve muscle performance and motor function, To improve ability to perform ADL's, To increase tolerance to activity/condition/position, To improve ability of physical actions for home/community/work/leisure, To improve gait and locomotor functions, To improve health of tissue, To decrease soft tissue restriction, To increase flexibility/ROM, To improve endurance, To improve balance, To improve tolerance to ADL's Thank you for the opportunity to evaluate your patient. For Medicare and Medicare HMO plans, please review the plan of care and approve it. It will need to be FAXED BACK to us at [phone] for Medicare purposes. For Medicare only, by signing this I certify the plan of care. Please let me know if there are questions or concerns regarding this plan of care. Physician Signature: Date:
--- NOTE | 2022-05-17 10:52 | HP.PTDCSUM ---
It has been my pleasure to treat ELIAS ALBARADO referred by JAM GONZALEZ, with the diagnosis of SPONDYLOLISYHESIS LUMBAR REGION for a total of 11 visit(s). Discharge Date: 05/17/22 Please see the following information for a summary of their discharge status. Subjective: Doing well ..knee is better Bilateral Back Pain Intensity (Out of 10): 0 Right Lower Extremity Pain Intensity (Out of 10): 0 % Improvement: 80 Objective/Function: POSTURE: mild forward posture. GAIT: reciprocal pattern. MMT: quads/hams/hip/ankle 4/5. LUMBAR ROM: flexion min loss ,extension mod loss Goal 1:: I with HEP for back Goal Progress: Goal Met Goal 2:: Patient to demonstrate 50 % improvement with increase function and less pain Goal Progress: Goal Met Goal 3:: Patient to ambulate with normal arley no device. Goal Progress: Goal Met Goal 4:: Patient to improve lumbar ROM for function of recovery to put on shoes . Goal Progress: Goal Met Goal 5:: Patient to improve peak force right quads/hams and hip by 5-10 to improve gait Goal Progress: Goal Met Goal 6:: Patient to improve back oswestry score by 5 points or to improve QOL and function Goal Progress: Goal Met Plan: D/C Discharge Comments: HEP If there are questions or concerns regarding this patient's physical therapy, please feel free to call me at [phone]. Thank you for the referral of this patient. Sincerely, Reji Clemente, PT, Cert MDT, OCS Balance/Gait/Functional tests - Balance/Special Test Scores Oswestry Low Back Score: 4
== END 2022-05-17 19:00 | disposition home or self-care (01) ==
LOC: PT 10:30
PROVIDERS: PCP Nurse Practitioner Family
DX: M17.11 Unilateral primary osteoarthritis, right knee (principal); M43.16 Spondylolisthesis, lumbar region
CPT/HCPCS: 97110; 97162

== ENCOUNTER 2022-05-26 09:01 | Outpatient (RCR) | payer SELFPAY, OTHER ==
--- NOTE | 2022-05-26 10:02 | HP.PTEVAL_ITS ---
Patient's Visit Information ELIAS ALBARADO is a 72 year old F referred to Physical Therapy by JIM Boateng with a diagnosis of unilateral primary osteoarthritis right knee. Date of Evaluation: 05/26/22 Physical Therapist: Reji Clemente PT, Cert MDT, OCS - Visit Plan Frequency: 1-2x /Week Duration: 4 Weeks Plan: PT INTERVETIONS RO/FLEXABLITY KNEE ,QUADS/HAMS/HIP STRENGTHENING ,FUNCTIONAL STRENGTGHENING AND MODLATIES - Subjective This 72 y/o female presents to physical therapy with right knee pain. Patient recently had lumbar fusion and d/c from PT . Patient has had knee pain for 2 years ,seen DR brenda edmonds . Patient does not want TKR. Patient had cortisone injection. Patient is nor taking medication. Location medial knee described ache occasional sharp pain. Aggravating factors squatting /kneeling/stairs . Alleviating factors rest. Patient has complete numbness in right leg. Patient pain can affects sleeping. Patient pain affects QOL and function. VOCATION: [employer]. SOCIAL: - Pain Right Knee Pain Intensity (Out of 10): 7 Pain Intensity Range: 10 - Objective POSTURE: mild forward posture. NEURO: c/o paresthesia/tingling right leg. EDEMA: joint line 45.1 cm. PALAPTION: tender joint line medial. AROM: 0-100 degrees supine flexion. GAIT: ambulates with mild decrease stance time right left. STAIR: one step at time with rail. MMT: ( peak force) quads 18.2,hamstrimgs 19,2,hip flexion 16.3, abduction 15.2 - Special Tests R Knee Tico - Meniscus: Positive R Knee Valgus - MCL: Positive R Knee Varus - LCL: Positive R Knee Patellar Apprehension - PFS: Negative R Knee Patellar Grind - PFS: Negative - Balance/Special Test Scores Lower Extremity Functional Score: 36 - Goals Goal 1:: Patient to be I with HEP for knee Goal Time Frame: 4-6 Weeks Goal 2:: Patient to improve AROM knee flexion by 10 degrees > to improve stairs Goal Time Frame: 4-6 Weeks Goal 3:: Patient to be improve strength quads/hams peak force by 5 to improve function Goal Time Frame: 4-6 Weeks Goal 4:: Patient to demonstrate 50% improvement with improved function and less pain Goal Time Frame: 4-6 Weeks Goal 5:: Patient to improve LFES score by 5 points to improve QOL Goal Time Frame: 4-6 Weeks - Rehabilitation Potential Physical Therapy Diagnosis: This patient has right knee pain with DJD with decrease ROM ,strength and edema impairs walking and standing and ADL's thus benefit from skilled PT Rehabilitation Potential: Good - Anticipated Interventions Patient/Client Instruction: Educate patient on: Condition, Plan of Care For the Purpose of:: To decrease pain, To increase ROM, To improve muscle performance and motor function, To improve ability to perform ADL's, To increase tolerance to activity/condition/position, To improve performance and independence with ADL's, To improve ability of physical actions for home/community/work/leisure, To improve health of tissue, To decrease soft tissue restriction, To increase flexibility/ROM Therapeutic Exercise to Include: Strength training, Flexibilty training, Gait and locomotor training, Active ROM For the Purpose of:: To decrease pain, To increase ROM, To improve muscle performance and motor function, To improve ability to perform ADL's, To improve ability of physical actions for home/community/work/leisure, To improve health of tissue, To decrease soft tissue restriction, To increase flexibility/ROM TENS: Yes IF ES: Yes Cryotherapy (ice pack, ice massage): Yes Thermo therapy (hot pack): Yes Ultrasound (thermal/non thermal): Yes For the Purpose of:: To decrease pain, To increase ROM, To improve nutrient delivery to tissue, To increase oxygenation perfusion, To improve gait and locomotor functions, To increase flexibility/ROM Thank you for the opportunity to evaluate your patient. For Medicare and Medicare HMO plans, please review the plan of care and approve it. It will need to be FAXED BACK to us at [phone] for Medicare purposes. For Medicare only, by signing this I certify the plan of care. Please let me know if there are questions or concerns regarding this plan of care. Physician Signature: Date:
--- NOTE | 2022-11-02 10:08 | HP.PT.NRP ---
ELIAS ALBARADO was seen in my office for initial evaluation on 05/26/22. The following Plan of Care was established for this patient: Initial Frequency: 1-2x /Week Initial Duration: 4 Weeks Patient/Client Instruction: Educate patient on: Condition, Plan of Care For the Purpose of:: To decrease pain, To increase ROM, To improve muscle performance and motor function, To improve ability to perform ADL's, To increase tolerance to activity/condition/position, To improve performance and independence with ADL's, To improve ability of physical actions for home/community/work/leisure, To improve health of tissue, To decrease soft tissue restriction, To increase flexibility/ROM Therapeutic Exercise to Include: Strength training, Flexibilty training, Gait and locomotor training, Active ROM For the Purpose of:: To decrease pain, To increase ROM, To improve muscle performance and motor function, To improve ability to perform ADL's, To improve ability of physical actions for home/community/work/leisure, To improve health of tissue, To decrease soft tissue restriction, To increase flexibility/ROM TENS: Yes IF ES: Yes Cryotherapy (ice pack, ice massage): Yes Thermo therapy (hot pack): Yes Ultrasound (thermal/non thermal): Yes For the Purpose of:: To decrease pain, To increase ROM, To improve nutrient delivery to tissue, To increase oxygenation perfusion, To improve gait and locomotor functions, To increase flexibility/ROM This patient was last seen in our office . 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 At this point I will be discontinuing this patient from physical therapy. I would be happy to see this patient again in the future if found appropriate by the physician. Thank you! Reji Clemente, PT, Cert MDT, OCS Balance/Gait/Functional tests - Balance/Special Test Scores Lower Extremity Functional Score: 36
== END 2022-05-26 19:00 | disposition home or self-care (01) ==
LOC: PT 09:01
PROVIDERS: PCP Nurse Practitioner Family; Referring Provider Physician Assistant; Visit Provider Physician Assistant
DX: M17.11 Unilateral primary osteoarthritis, right knee (principal)
CPT/HCPCS: 97110; 97162

== ENCOUNTER → 2022-08-20 | Outpatient (CLI) | payer SELFPAY, OTHER ==
--- NOTE | 2022-08-20 08:31 | MRI_ITS ---
STUDY: MRI LUMBAR SPINE WITH AND WITHOUT CONTRAST REASON FOR EXAM: Female, 72 years old. S/P LAMINECTOMY W/ SPINAL FUSION TECHNIQUE: Standardized fat and water weighted pulse sequences were obtained in the sagittal and axial planes. 17ML IV CLARISCAN was administered for the contrast portion of the examination. COMPARISON: MRI lumbar spine without contrast 01/04/2022. FINDINGS: T10-T11: (Sagittal only). Normal endplates. Pronounced disc space height narrowing. No ventral extradural defect. Normal central canal and bilateral intervertebral neural foramina. T11-T12: (Sagittal only). Normal endplates. Mild disc space height narrowing. Normal central canal and bilateral intervertebral neural foramina. T12-L1: (Sagittal only). Normal endplates. Normal disc height, hydration and morphology. Normal central canal and bilateral intervertebral neural foramina. Normal lumbar lordosis. There is no substantial scoliosis. Normal conus medullaris that terminates at the mid L1 vertebral body level. L1-2: Normal endplates. Normal disc height, hydration and morphology. Normal bilateral facet joints. Normal central canal and bilateral lateral recesses. Normal bilateral intervertebral neural foramina. L2-3: Normal endplates. Mild disc space height narrowing. Mild degenerative retrolisthesis of L2 on L3 is unchanged. Postsurgical absence of the spinous processes and lamina with enhancing postoperative fibrosis behind the laminectomy sites. Capacious central canal and bilateral lateral recesses. Normal bilateral intervertebral neural foramina. L3-4: Normal endplates. Mild disc space height narrowing. The mild ventral axial defect due to small posterior bulging annulus. Pedicular screws and rods causing signal distortion artifacts. Capacious central canal and bilateral lateral recesses. Normal bilateral intervertebral neural foramina. L4-5: Normal endplates. Normal disc height and morphology. Pedicular screws and rods causing signal distortion artifacts. Capacious central canal and bilateral lateral recesses. Normal bilateral intervertebral neural foramina. L5-S1: Modic type II degenerative vertebral marrow fat infiltration underneath the vertebral endplates. Pronounced disc space height narrowing. Postsurgical absence of the L5 spinous processes and lamina. Capacious central canal and bilateral lateral recesses. Partial signal distortion of the bilateral intervertebral neural foramina. Normal visualized sacral ala. Normal visualized paraspinous soft tissue structures. Enhancing postoperative fibrosis behind the laminectomy sites at L3 down to L5. No abnormal intradural enhancing lesions. MRI/Spine Lumbar W/WO Contrast IMPRESSION: 1. Interval improvement of central canal stenosis at L3-L4 disc space, following posterior laminectomy and decompression fusion surgery. 2. No MRI evidence of lumbar extruded disc fragment or nerve root displacement. 3. Enhancing postoperative fibrosis behind the laminectomy sites at L3 down to L5. Electronically Signed: Rubin Basilio MD at 9:57 EDT ,
[2022-08-20 08:55] LABS: CREATININE FINGERSTICK < 0.9 mg/dL (0.55-1.02); EGFR FINGERSTICK > 60.0000 mL/min (>60)
== END | disposition home or self-care (01) ==
PROVIDERS: PCP Nurse Practitioner Family; Referring Provider Orthopaedic Surgery Orthopaedic Surgery of the Spine; Visit Provider Orthopaedic Surgery Orthopaedic Surgery of the Spine
DX: M48.061 Spinal stenosis, lumbar region without neurogenic claudication (principal); Z98.1 Arthrodesis status
CPT/HCPCS: 72158; A9575

== ENCOUNTER 2023-01-26 09:30 | Outpatient (RCR) | payer SELFPAY, OTHER ==
--- NOTE | 2022-12-24 09:41 | HP.PTEVAL_ITS ---
Patient's Visit Information Visit Information Visit Information: ELIAS ALBARADO is a 72 year old F referred to Physical Therapy by Dr. Arnoldo Bender MD with a diagnosis of Right Knee Pain. Date of Evaluation: 12/24/22 Physical Therapist: Estefany Melendez DPT Visit Plan Frequency: 2x /Week Duration: 4 Weeks Plan: Aquatic Therapy- prehab for R TKR Feb 12 HEP Given IE: bolster extn, heel slide, quad set, glut set, ankle pumps Subjective Subjective: Patient reports that she has had multiple surgeries- she knows that she is having a right TKR by Dr. Bender in February 12. 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 The knee is tight all throughout- she knows she is overweight but its hard to move when she hurts. Worst: 02/06 Agg: night is the worst-Eases: she is unsure of anything that makes it better- currently taking Gabapentin and a anti-inflammatory. Best: 06/08. At times its sharp and shooting others times its just achy- the pain ebbs and flows. No N/T in the toes. She has not had water therapy before. Sleep: disturbed- depending on the night. They did not give her any exercises for prior to surgery. She has a cane and walker at home. She has 2 steps at home- with a hand rail- and she has help at home. Currently she can do all of her ADL's but its hard and increased her pain mary with bending to dry herself and put on her socks is painful. PMHx: skin cancer Meds: Gabapentin and the anti- inflammatory. She does see a chiropractor. Objective Objective: Posture: FH, RS- can correct but does not maintain Gait: antalgic- decreased stance on the right LE with decreased heel/toe pattern- with no AD- SOB with ambulate >300 feet Stairs: asc/desc non recip with 2 HR HR/TR: able with reports of pulling sensation with TR SLS: weight shift only Palpation: tender throughout right LE Strength: Hip: 3/5 throughout, Knee: Flexion: 9.7 Extn:8.6 Girth: Patella:41.5 cm 6: below: 39 cm 6 above: 62 cm ROM: 10-70 degrees with pain at end range Flex: HS: moderate, Gastroc: moderate Balance/Special Test Scores Lower Extremity Functional Score: 18 Goals Goal 1:: Patient will be I with HEP and progression Goal Time Frame: 4-6 Weeks Goal 2:: Patient will ambulate >300 feet with a normalized gait pattern Goal Time Frame: 4-6 Weeks Goal 3:: Patient will report 80% improvement Goal Time Frame: 4-6 Weeks Rehabilitation Potential Physical Therapy Diagnosis: Patient presents for prehab aquatic therapy for right knee- she has decreased pain free ROM, LE and core strength/stabilization, flex and muscular endurance leading to abnormal gait and increased pain with ADL's. Rehabilitation Potential: Fair Anticipated Interventions Patient/Client Instruction: Educate patient on: Benefits of Fitness Program Therapeutic Exercise to Include: Strength training, Endurance training, Coordination, Agility training, Body mechanics, Postural training, Flexibilty training, Gait and locomotor training, Neuromotor development, In an aquatic setting, Passive ROM, Active ROM, Dynamic Lumbar Stabilization and Scapular Strength/Stabilization For the Purpose of:: To improve muscle performance and motor function Text: Thank you for the opportunity to evaluate your patient. For Medicare and Medicare HMO plans, please review the plan of care and approve it. It will need to be FAXED BACK to us at [phone] for Medicare purposes. For Medicare only, by signing this I certify the plan of care. Please let me know if there are questions or concerns regarding this plan of care. Physician Signature: Date:
--- NOTE | 2023-01-26 10:04 | HP.PTDCSUM ---
Discharge Summary D/C summary: It has been my pleasure to treat ELIAS ALBARADO referred by Dr. Arnoldo Bender MD, with the diagnosis of Right Knee Pain for a total of 7 visit(s). Discharge Date: Please see the following information for a summary of their discharge status. Subjective Subjective: Feb 11 is scheduled surgery- she felt like the water was good- she felt that she was able to move a lot better in the water than on land. She did have one session that she felt really sore after but they were able to modify. Pain R knee: Pain Intensity (Out of 10): Unrated Overall Improvement % Improvement: 25 Objective Objective/Function: No significant changes since IE: Posture: FH, RS- can correct but does not maintain Gait: antalgic- decreased stance on the right LE with decreased heel/toe pattern- with no AD- SOB with ambulate >300 feet Stairs: asc/desc non recip with 2 HR HR/TR: able with reports of pulling sensation with TR SLS: weight shift only Palpation: tender throughout right LE Strength: Hip: 3/5 throughout, Knee: Flexion: 9.7 Extn:8.6 Girth: Patella:41.5 cm 6: below: 39 cm 6 above: 62 cm ROM: 10-70 degrees with pain at end range Flex: HS: moderate, Gastroc: moderate Goals Goal 1:: Patient will be I with HEP and progression Goal Progress: Goal Met Goal 2:: Patient will ambulate >300 feet with a normalized gait pattern Goal Progress: Not Progressing Goal 3:: Patient will report 80% improvement Goal Progress: Progressing Plan Plan: 01/26/23: Discharge to have TKR Aquatic Therapy- prehab for R TKR Feb 12 HEP Given IE: bolster extn, heel slide, quad set, glut set, ankle pumps D/C Information d/c sentence: If there are questions or concerns regarding this patient's physical therapy, please feel free to call me at [phone]. Thank you for the referral of this patient. Sincerely, Estefany Melendez, DPT Balance/Gait/Functional tests Balance/Special Test Scores Lower Extremity Functional Score: 26 Improvement % Improvement: 25
== END 2023-01-26 19:00 | disposition home or self-care (01) ==
LOC: PT 09:30
PROVIDERS: PCP Nurse Practitioner Family; Visit Provider Specialist
DX: M17.11 Unilateral primary osteoarthritis, right knee (principal); M25.561 Pain in right knee; M21.161 Varus deformity, not elsewhere classified, right knee
CPT/HCPCS: 97113; 97162; 97164

== ENCOUNTER → 2024-05-04 | Outpatient (CLI) | payer OTHER, SELFPAY ==
[2024-05-04 12:08] LABS: Erythrocyte Sedimentation Rate 4 mm/hr (0-30)
[2024-05-04 12:10] LABS: Absolute Lymphocyte Count 1.41 X10^3/uL (0.83-4.51); Basophil# 0.03 X10^3/uL; Basophil% 0.5 % (0-1); Eosinophil# 0.13 X10^3/uL; Eosinophils% 2.1 % (0-5); Hematocrit 43.7 % (37-47); Hemoglobin 14.6 g/dL (12.0-15.0); Lymphocyte # 1.41 X10^3/ul (0.83-4.51); Lymphocyte % 22.3 % (19-41); Mean Corp Hgb Conc 33.4 g/dL (32-36); Mean Corpuscular Hgb 31.3 pg (27.0-32.0); Mean Corpuscular Volume 93.8 fL (81-99); Mean Platelet Vol. 8.9 fl (6.2-12.0); Monocyte# 0.75 X10^3/uL; Monocyte% 11.9 % (0-10); NRBC Flagged by Analyzer 0 % (0-5); Neutrophil # 3.98 X10^3/uL (2.7-7.7); Neutrophil % 62.9 % (47-70); Platelet Count 215 K/mm3 (150-450); RBC Distribution Width CV 13.9 % (11.6-14.6); RBC Distribution Width SD 47.9 fl (35.1-43.9); Red Blood Count 4.66 M/mm3 (4.2-5.4); White Blood Count 6.3 K/mm3 (4.4-11.0)
[2024-05-04 12:57] LABS: CRP 4.26 mg/L (0.0-3.0)
== END | disposition home or self-care (01) ==
LOC: LAB 11:31
PROVIDERS: PCP Nurse Practitioner Family; Referring Provider Physician Assistant Surgical; Visit Provider Physician Assistant Surgical
DX: Z09 Encounter for follow-up examination after completed treatment for conditions other than malignant neoplasm (principal); Z96.651 Presence of right artificial knee joint
CPT/HCPCS: 36415; 85025; 85652; 86140

== ENCOUNTER 2024-05-21 05:46 | Day surgery (SDC) | payer SELFPAY, OTHER ==
--- NOTE | 2024-05-14 09:12 | EKG12_ITS ---
Test Reason : PRE OP Blood Pressure : */* mmHG Vent. Rate : 112 BPM Atrial Rate : 112 BPM P-R Int : 144 ms QRS Dur : 70 ms QT Int : 304 ms P-R-T Axes : 47 65 23 degrees QTcB Int : 414 ms Sinus tachycardia Possible Left atrial enlargement Borderline ECG Confirmed by SHAHID PEREIRA, LUIS ([id number]), department editor ABDIRIZAK DENNY ([id number]) on 05/14/2024 11:01:14 AM Referred By: Ervin Salomon Confirmed By: LUIS KEY MD
--- NOTE | 2024-05-14 13:40 | PAT.ANE_ITS ---
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 When Was Last Pacemaker Check QUESTION #4 FULL TEXT: You/Your Family Experience fever (hyperthermia) with Anesthesia Last Oral Intake Last Oral intake: Last Oral Intake NPO since Meds taken in AM with sips of water? 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 operator hot metal Female Yes 05/10/24 15:14 HX of Motion Sickness Yes 05/10/24 15:14 HX of N/V After Surgery Yes 05/10/24 15:14 Non-Smoker Yes 05/10/24 15:14 Duration of Surgery greater Yes 05/10/24 15:14 than 60 minutes Number of Risk Factors 5 05/10/24 15:14 PONV Score Severe Risk 05/10/24 15:14 Height & Weight Height & Weight: Anesthesia: Height & Weight Height 5 ft 2 in 04/16/24 09:27 Respiratory Assessment Respiratory Assessment - mixer operator hot metal: Respiratory Tract Infection Hx - mixer operator hot metal Hx Respiratory Tract Infection No 05/10/24 15:14 STOP Sleep Apnea STOP Sleep Apnea - mixer operator hot metal: STOP Sleep Apnea - mixer operator hot metal Hx Hypertension Yes 05/10/24 15:14 Hx Sleep Apnea No 05/10/24 15:14 CPAP No 07/27/21 13:07 BIPAP Do you snore loudly (louder No 05/10/24 15:14 than talking or can be heard Do you often feel tired/ No 05/10/24 15:14 fatigued/ sleepy during daytime? Has anyone observed you stop No 05/10/24 15:14 breathing during sleep? STOP Results Negative 05/10/24 15:14 QUESTION #5 FULL TEXT : Do you snore loudly (louder than talking or can be heard through closed doors)? 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 Specify any problems Hx of Preganancy in last 3 No 05/10/24 15:14 Months Nurse Filling Out Transfusion [facility] 05/10/24 15:14 & Questions: Date: 05/10/24 05/10/24 15:14 Time: 15:29 05/10/24 15:14 Patient unable to answer at this time (ie. confused, unrespo /Reproduction History /Reproductive History - mixer operator hot metal: /Reproductive Hx- mixer operator hot metal Hx Now No 05/10/24 15:14 Gestational Age (in weeks): EDC: Hx Hx Para Hx [facility] Medical History (Updated 05/10/24 @ 15:26 by Eleni Luna) Back pain Shortness of breath on exertion Hypertension Abdominal wall hernia Difficult intravenous access Wears glasses Wears dentures Post-menopausal Skin cancer Numbness and tingling of left leg Arthritis DVT (deep venous thrombosis) Easy bruising Gastric reflux Non-smoker PONV (postoperative nausea and vomiting) History of echocardiogram Heart murmur Normal colonoscopy Gallstones Allergy/AdvReac Type Severity Reaction Status Date / Time No Known Allergies Allergy Verified 04/16/24 09:28 Family History Sister Cancer uterine Surgical History (Updated 05/10/24 @ 15:26 by Eleni Luna) History of back surgery History of right knee joint replacement History of tonsillectomy S/P percutaneous endoscopic gastrostomy (PEG) tube placement (~01/23/19) History of ERCP (~01/03/19) History of laparoscopic cholecystectomy (~01/02/19) S/P tonsillectomy Social History Smoking Status: Never smoker alcohol intake: never Audit: Pertinent Findings Pertinent Findings EKG Perinent findings: stach 112 bpm, lae 05/14/24 Echo (EF%) pertinent findings: 12/2017 ef 65 Recommendation Anesthesia Recommendation Anesthesia recommendation: OPTIMIZED for anesthesia
[2024-05-21] VITALS (10 sets, daily range): BP systolic 108–158; BP diastolic 65–105; PULSE 71–84; RESP 16–18; TEMP 36.2–37.3; O2SAT 93–98; BMI 35.0
[2024-05-21] MEDS: 0.9% Normal Saline (1000mL) 1,000 ML 15 ML IV (06:35)
--- NOTE | 2024-05-21 06:43 | PCM.PRE.AN2 ---
ASA Classification* ASA Classification ASA Classification: 2 Assessment & Plan Anesthesia* Anesthesia Assessment Anesthesia Assessment: Discussed sedation and/or anesthesia options, risks, benefits, and alternatives with patient/parents/legal guardian/POA. Questions invited. The patient/parents/legal guardian/POA seems to understand and agrees to proceed with anesthesia plan. Reviewed the physical assessment, medical history, allergy history and patient home medications list prior to surgery/procedure/anesthetic and documented any changes. Performed airway and anesthesia risk assessments. Anesthesia Type Anesthesia Type: General Anesthesia Focused Assessment* Temperature: 98.8 F Pulse Rate: 81 Blood Pressure: 158/105 Respiratory Rate: 18 Pulse Ox: 98 Airway Assessment Mouth opens: >3 cm Mallampati Score: II Focused Labs Anesthesia Preop lab: CBC WBC 6.3 K/mm3 (4.4-11.0) 05/04/24 11:38 RBC 4.66 M/mm3 (4.2-5.4) 05/04/24 11:38 Hgb 14.6 g/dL (12.0-15.0) 05/04/24 11:38 Hct 43.7 % (37-47) 05/04/24 11:38 Plt Count 215 K/mm3 (150-450) 05/04/24 11:38 CHEMISTRY Potassium 4.0 mmol/L (3.5-5.1) 07/22/21 10:56 Sodium 140 mmol/L (136-145) 07/22/21 10:56 Magnesium 1.7 mg/dL (1.6-2.6) 01/20/19 23:15 Phosphorus 2.6 mg/dL (2.5-4.9) 01/20/19 23:15 BUN 15 mg/dL (7-18) 07/22/21 10:56 Creatinine 0.90 mg/dL (0.55-1.02) 07/22/21 10:56 Glucose 97 mg/dL (74-106) 07/22/21 10:56 COAG PT 11.9 SECONDS (11.7-14.9) 07/22/21 10:56 Pre-Assessment Diagnosis/Proposed Procedure Planned Operative Procedure(s): Hernia,Open Ventral Repair w/ Mesh Anesthesia History 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 When Was Last Pacemaker Check QUESTION #4 FULL TEXT: You/Your Family Experience fever (hyperthermia) with Anesthesia Last Oral Intake Last Oral intake: Last Oral Intake NPO since 18:00 05/21/24 06:26 Meds taken in AM with sips of No 05/21/24 06:26 water? 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 Female Yes 05/10/24 15:14 HX of Motion Sickness Yes 05/10/24 15:14 HX of N/V After Surgery Yes 05/10/24 15:14 Non-Smoker Yes 05/10/24 15:14 Duration of Surgery greater Yes 05/10/24 15:14 than 60 minutes Number of Risk Factors 5 05/10/24 15:14 PONV Score Severe Risk 05/10/24 15:14 Height & Weight Height & Weight: Anesthesia: Height & Weight Height 5 ft 2 in 05/21/24 06:26 Weight: 86.9 kg 05/21/24 06:26 Body Mass Index (BMI) 35.0 05/21/24 06:26 Respiratory Assessment Respiratory Assessment - computer systems software architect: Respiratory Tract Infection Hx - computer systems software architect Hx Respiratory Tract Infection No 05/10/24 15:14 STOP Sleep Apnea STOP Sleep Apnea - computer systems software architect: STOP Sleep Apnea - computer systems software architect Hx Hypertension Yes 05/10/24 15:14 Hx Sleep Apnea No 05/10/24 15:14 CPAP No 07/27/21 13:07 BIPAP Do you snore loudly (louder No 05/10/24 15:14 than talking or can be heard Do you often feel tired/ No 05/10/24 15:14 fatigued/ sleepy during daytime? Has anyone observed you stop No 05/10/24 15:14 breathing during sleep? STOP Results Negative 05/10/24 15:14 QUESTION #5 FULL TEXT : Do you snore loudly (louder than talking or can be heard through closed doors)? 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 Specify any problems Hx of Preganancy in last 3 No 05/10/24 15:14 Months Nurse Filling Out Transfusion VLEHMAN 05/10/24 15:14 & Questions: Date: 05/10/24 05/10/24 15:14 Time: 15:29 05/10/24 15:14 Patient unable to answer at this time (ie. confused, unrespo /Reproduction History /Reproductive History - computer systems software architect: /Reproductive Hx- computer systems software architect Hx Now No 05/10/24 15:14 Gestational Age (in weeks): EDC: Hx Hx Para Hx Section SAB Active Medications Active Medications: Current Medications Generic Name Dose Route Start Last Admin Trade Name Freq PRN Reason Stop Dose Admin Cefazolin Sodium 2 gm/ N/A 20 mls @ 400 mls/hr 05/21/24 07:30 IV 05/21/24 07:32 PREOP ONE Sodium Chloride 1,000 mls @ 15 mls/hr 05/21/24 06:05 05/21/24 06:35 IV 05/26/24 19:24 15 mls/hr .Q48H YONNY Administration Protocol PFS Medical History Back pain Shortness of breath on exertion Hypertension Abdominal wall hernia Difficult intravenous access Wears glasses Wears dentures Post-menopausal Skin cancer Numbness and tingling of left leg Arthritis DVT (deep venous thrombosis) Easy bruising Gastric reflux Non-smoker PONV (postoperative nausea and vomiting) History of echocardiogram Heart murmur Normal colonoscopy Gallstones Allergy/AdvReac Type Severity Reaction Status Date / Time No Known Allergies Allergy Verified 05/21/24 06:24 Family History Sister Cancer uterine Surgical History History of back surgery History of right knee joint replacement History of tonsillectomy S/P percutaneous endoscopic gastrostomy (PEG) tube placement (~01/23/19) History of ERCP (~01/03/19) History of laparoscopic cholecystectomy (~01/02/19) S/P tonsillectomy Social History Smoking Status: Never smoker alcohol intake: never Review of Systems (Anesthesia) ROS Narrative System reviewed and no additional complaints, except as documented.
--- NOTE | 2024-05-21 06:45 | PCM.HP.BLA ---
History and Physical Date of Admission: 05/21/24 Intake Vital Signs 07/27/2209:42 04/16/2409:27 Height 5 ft 2 in 5 ft 2 in Weight: 200 lb BMI 36.6 BP 172/90 H Blood Pressure Location Rt brachial Position Sitting Respiration 18 Pulse 72 Pulse Source Monitor Temp 97.4 F L Temp Source Temporal Pulse Oximetry (%) 99 Oxygen Delivery Method room air Intake Visit Reasons: ABDOMINAL HERNIA Chief Complaint: abdominal hernia Is patient in pain?: No Allergies No Known Allergies Allergy (Verified 04/16/24 09:28) Have you fallen in the past year?: No [facility] Medical History (Updated 04/16/24 @ 09:29 by Almaz Campbell LPN) Abdominal wall hernia Difficult intravenous access Wears glasses Wears dentures Post-menopausal Skin cancer Numbness and tingling of left leg Arthritis DVT (deep venous thrombosis) Easy bruising Gastric reflux Non-smoker PONV (postoperative nausea and vomiting) History of echocardiogram Heart murmur Normal colonoscopy Gallstones Surgical History History of tonsillectomy S/P percutaneous endoscopic gastrostomy (PEG) tube placement (~01/23/19) History of ERCP (~01/03/19) History of laparoscopic cholecystectomy (~01/02/19) S/P tonsillectomy Family History Sister Cancer uterine Social History Smoking Status: Never smoker alcohol intake: never HPI HPI HPI: Patient is a 74-year-old female here with recurrent umbilical hernia. The patient had an umbilical hernia repair 5 years ago during cholecystectomy. At that time the umbilical hernia was used as a port site. It was closed with suture only. She says that has recurred and is bulging in the umbilical area. It bulges more to the right. ROS General General: Yes weight change (loss); No appetite, fatigue, colon cancer, breast cancer or weakness HEENT HEENT: No difficulty swallowing, eye injury, eye surgery, swollen glands or hoarseness Endo Endocrine: No thyroid disease, diabetes mellitus, thyroid cancer, Hair loss, heat intolerance or cold intolerance Skin Skin: No rash or changing moles Musc Musculoskeletal: No back problems, arthritis, rheumatoid arthritis, gout or joint pain Cardio Cardiovascular: No murmur, pacemaker, heart disease, atrial fibrillation, high blood pressure, heart attack, heart stent, palpitations, shortness of breat with exertion or chest pain Psych Psychiatric: No depression, anxiety or hearing voices Resp Respiratory: No shortness of breath, No sleep apnea, No cough, No COPD, No asthma, No emphysema and No wheezing Gastro Gastrointestinal: No abdominal pain, No nausea or vomiting, No diarrhea, No constipation, No blood in stool, No acid reflux, No hemorrhoids, No ulcers, No gallbladder problem and No black,tarry stools Rad Hematologic: No blood thinners, No blood disorders, No bleeding, No anemia and No blood clots Neuro Neurologic: Yes numbness, Yes tingling and No weakness Exam Const General: cooperative Orientation: alert and oriented x3 HENMT Head: normal to inspection Neck Neck: normal visual inspection and full ROM Chest Chest palpation & inspection: normal inspection of the chest Resp Effort & Inspection: normal respiratory effort Auscultation: clear to auscultation bilaterally Cardio Rate: regular rate Rhythm: regular rhythm GI Inspection: non-distended Palpation: soft and nontender Skin General: no rashes or lesions noted Neuro General: patient alert and patient oriented x3 Extrem General: full ROM Psych Appearance: grossly normal Mental Status: mental status grossly normal Assessment and Plan Assessment and Plan (1) Abdominal wall hernia: Status: Acute Plan: The patient has recurrence of her umbilical hernia. It is herniating rightward. I discussed repair with her in detail. At this time the patient does not want surgery. She will follow-up if it worsens and she reconsiders. I went over the surgery in detail as well as the risks of bleeding and infection and I discussed mesh placement. Patient understands and will call me back if she decides to have surgery. Ervin Salomon MD Pager: [facility] [address] [place] [address], [address] [place] [address] Office: The patient changed her mind and decided to have this repaired. I discussed ventral hernia repair with possible mesh. I discussed the risks including but not limited to bleeding, infection, injury to underlying organs. Patient understands the risks and is willing to proceed.
[2024-05-21] MEDS: Cefazolin 2 GM in Syringe IV (07:19)
[2024-05-21] MEDS: Bupiv/Epi 0.25% 30 ML Vial (08:20)
--- NOTE | 2024-05-21 08:32 | OP.PCM_ITS ---
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 Fashion Styling Intern: David Guthrie Tasks completed by tourist information assistant: Opening, Closing and Retracting Type of Anesthesia: General/Regional RN Documented Start/Stop Times: Operation Date: 05/21/24 07:30 Case Time Into Pre-Op 05/21/24 06:02 Out of Pre-Op 05/21/24 07:15 Anesthesia Start 05/21/24 07:19 Into Room 05/21/24 07:19 Procedure Start 05/21/24 07:37 Procedure End 05/21/24 08:23 Anesthesia End 05/21/24 08:28 Out of Room 05/21/24 08:28 Into Recovery 05/21/24 08:30 Procedure Start Time: 07:37 Procedure Stop Time: 08:23 Select all DRAINS/GRAFTS/IMPLANTS that apply: Implanted device Implanted device details: Medium Ventralex ST mesh Estimated Blood Loss: 5 Specimen collected: No Description of surgery: Patient was brought back to the operating room and general anesthesia was induced. The abdomen was prepped and draped in usual sterile fashion. The pr evious curvilinear incision was injected with local anesthetic and then incised. Dissection was carried down to the fascia. The hernia was herniating into the subcutaneous tissue on the right side. The hernia sac and its contents were dissected free from the subcutaneous tissue. After the contents were reduced as well as the hernia sac the fascia was grasped and elevated. The preperitoneal plane was developed. Next a medium Ventralex ST mesh was placed in the preperitoneal plane and sutured to the anterior fascia using 2-0 PDS suture. The defect was then closed with interrupted 0 PDS sutures. Next the skin was closed with interrupted 3-0 Vicryl sutures and a running 4-0 Monocryl suture. Steri-Strips and a bandage were applied. Patient tolerated the procedure well was brought to PACU in stable condition. Surgical Findings: 3 cm umbilical recurrent hernia Complications Complications: No Admit VTE Documentation VTE Mechan Device Prophylaxis: SCD's
--- NOTE | 2024-05-21 08:32 | PCM.POST.ANE ---
Anesthesia: Postop Eval I Current Vital Signs Temperature: 97.3 F Pulse Rate: 84 Blood Pressure: 117/65 Respiratory Rate: 18 Pulse Ox: 93 (4L O2) Assessment Airway patent: Yes Spontaneous unlabored respirations: Yes nausea: No Vomiting: No Anesthesia Complication: No Fluid Hydration Crystalloid volume administer (ml): 1,000 Total IV fluid infused: 1,000 Progress Note Anesthesia document: Postop Eval 1 completed: Yes
--- NOTE | 2024-05-21 08:35 | EX.PCM.DISCH ---
Discharge Instructions Procedure Hernia Diet Discharge Diet: Light diet - advance as tolerated Activity Discharge Activity: May Not Drive (for 2-3 days or while taking narcotic pain meds.) and May Shower (with the bandage in place 1-2 days after surgery.) Lifting Restrictions: 20 pounds for 6 weeks. Additional Activity Instructions:: Climbing stairs is fine, walking is encouraged. Sitting in bed may be uncomfortable. Sitting up using your lateral muscles (sitting up sideways) is usually more comfortable. Do not drive, work heavy equipment of sign legal documents for 24 hours. Pain medications may cause nausea, you should typically eat light foods as you take your pain medications. Pain medications may also cause constipation. If you have difficulty with this, discuss with your doctor. Alternate ibuprofen and Tylenol for pain control, oxycodone for breakthrough pain Dressing / Incision Call your doctor if your incision/area has: Continuous Slow Oozing, Sudden Increased Bleeding, Increased Pain/ Swelling, Increased Redness and Foul Smelling Discharge Call your doctor if you observe: Fever of 101 or Higher Suture Line Care: Avoid Pulling/Pushing and Avoid Pinching/Bending Remove Dressing in: 2 days (Remove clear bandages in 2 days, remove Steri-Strips in 7 to 10 days.) Cleanse incision/area with: Soap & Water Follow Up Care Please Follow Up With: Ervin Salomon MD When: Please call to schedule 2 week follow up appointment. [phone] Test Results: Test results from this visit will be discussed in further detail at your follow-up appointment, if applicable. Discharge Plan Admission Attending Provider: Ervin Salomon Primary Care Provider: Eleni Kaplan Instructions Print Language: Guamanian Discharge Orders/Prescriptions Prescriptions: New oxycodone 5 mg Tablet 5 - 10 mg PO Q4H PRN PRN (Reason: Pain Score 4-10) 5 Days Qty: 20 0RF Other Ambulatory Orders: 12 Lead EKG (Routine) Timeframe: 20240514 Location: None Selected Ordered By: Dr. Wilian Amor Referrals / Follow Up: Gabriel Zaman CAND[facility] MAKER HELPER, [facility] [Non-Staff] - Disposition Disposition (needs filled in before D/C Order can be placed): Home, Self Care
[2024-05-21] MEDS: oxyCODONE 5 MG Tablet PO (09:55)
--- NOTE | 2024-05-21 15:03 | POSTOPAN2_ITS ---
Anesthesia Postop Eval I Sum Postop Eval Completion status Anesthesia document: Postop Eval 1 completed: Yes Anesthesia Postop Eval I Summary Anesthesia Postop Eval I Summary: Anesthesia Postop Eval I: Assessment Summary Airway patent Yes 05/21/24 08:32 SURGICAL [email or web address] Spontaneous unlabored Yes 05/21/24 08:32 SURGICAL [email or web address] respirations Mental status nausea No 05/21/24 08:32 SURGICAL [email or web address].CSIR Vomiting No 05/21/24 08:32 SURGICAL [email or web address].CSIR Anesthesia Postop Eval I: Fluid Summary Crystalloid volume administer 1,000 05/21/24 08:32 SURGICAL [email or web address].CSIR (ml) Colloids volume administered ( ml) Blood Product volume administered (ml) Total IV fluid infused 1,000 05/21/24 08:32 SURGICAL [email or web address].CSIR Anesthesia Postop Eval I: Summary Notes Anesthesia Complication No 05/21/24 08:32 SURGICAL [email or web address].CSIR Anesthesia Complication Comment: Post-operative progress note Anesthesia: Postop Eval II Evaluation Mental status: Awake and Calm Pain Level: 1 nausea: No Vomiting: No Complications Anesthesia Complication: No
--- NOTE | 2024-05-21 15:03 | PCM.POSTANE2 ---
Anesthesia Postop Eval I Sum Postop Eval Completion status Anesthesia document: Postop Eval 1 completed: Yes Anesthesia Postop Eval I Summary Anesthesia Postop Eval I Summary: Anesthesia Postop Eval I: Assessment Summary Airway patent Yes 05/21/24 08:32 CHILD MONITOR.CSIR Spontaneous unlabored Yes 05/21/24 08:32 CHILD MONITOR.CSIR respirations Mental status nausea No 05/21/24 08:32 CHILD MONITOR.CSIR Vomiting No 05/21/24 08:32 CHILD MONITOR.CSIR Anesthesia Postop Eval I: Fluid Summary Crystalloid volume administer 1,000 05/21/24 08:32 CHILD MONITOR.CSIR (ml) Colloids volume administered ( ml) Blood Product volume administered (ml) Total IV fluid infused 1,000 05/21/24 08:32 CHILD MONITOR.CSIR Anesthesia Postop Eval I: Summary Notes Anesthesia Complication No 05/21/24 08:32 CHILD MONITOR.CSIR Anesthesia Complication Comment: Post-operative progress note Anesthesia: Postop Eval II Evaluation Mental status: Awake and Calm Pain Level: 1 nausea: No Vomiting: No Complications Anesthesia Complication: No
== END 2024-05-21 10:51 | disposition home or self-care (01) ==
LOC: SDC 05:46 → AC 05:47
PROVIDERS: PCP Student in an Organized Health Care Education/Training Program; Referring Provider Surgery; Visit Provider Surgery
PROC: (CPT 49615; principal; 2024-05-21 07:15)
DX: K42.9 Umbilical hernia without obstruction or gangrene (principal); Z86.718 Personal history of other venous thrombosis and embolism
CPT/HCPCS: 49615; 00750; 93005; C1781; J2405